=== PATIENT | male | born 1935 | race American Indian/Alaskan Native ===

== ENCOUNTER 2017-03-09 17:08 | Observation (INO) | payer OTHER ==
[2017-03-09] MEDS ORDERED: Sodium Chloride 0.9% 10 ML Syringe FLUSH PRN ×2 (17:39→19:51)
[2017-03-09 18:02] LABS: CHLORIDE,CL 98 mmol/L (101-111); SODIUM,NA 133 mmol/L (135-145)
[2017-03-09] MEDS ORDERED: Albuterol 6.7 GM Inhaler INH PRN (19:47)
[2017-03-09] MEDS ORDERED: Ondansetron 4 MG Tab.DIS PO PRN (19:51)
[2017-03-09] MEDS ORDERED: Acetaminophen 325 MG Tab PO PRN (19:51)
--- NOTE | 2017-03-09 20:01 | PCM.HP ---
H&P History of Present Illness - General Date of Service: 03/09/17 Admit Problem/Dx: Admission Diagnosis/Problem Admission Diagnosis/Problem Confusion Source of Information: Patient, Other () - History of Present Illness Initial Comments - Free Text/Narative: The patient is a 81-year-old gentleman who has a history of atrial fibrillation , bovine aortic valve replacement, diabetes. He says he has had an episode of confusion this morning when he did not know what day it is, where to go with his son. He says that he had similar episodes in the past. He had no motor or sensory deficit. While talking with the the did not notice any abnormality, no slurred speech. Subsequently the patient went to work, he is a professor at the [employer]. No significant abnormalities during the day. He even ran two miles as his regular exercise regimen. Subsequently he called his primary care provider and was suggested to come to the emergency room. He arrived about 12 hours after the initial event. He is feeling well. He noted that he had a large lunch with sweets. His blood sugar was elevated. He normally runs around 160 the morning. - Related Data Allergies/Adverse Reactions: Allergies Allergy/AdvReac Type Severity Reaction Status Date / Time No Known Allergies Allergy Verified 03/09/17 17:44 Home Medications: Home Meds Aspirin [Nan Chewable] 81 mg PO DAILY 02/27/14 [History] Calcium Citrate/Vitamin D3 [Calcium Citrate + D] 1 tab PO BID 02/27/14 [History] Simvastatin [Zocor] 20 mg PO DAILY 02/27/14 [History] metFORMIN [Glucophage] 1,000 mg PO BIDM 02/27/14 [History] Docusate Sodium [Colace] 100 mg PO BID PRN 09/22/15 [History] Warfarin [Coumadin] 3 mg PO DAILY 09/22/15 [History] Albuterol [Proair HFA] 12 puff INH Q4H PRN 03/09/17 [History] Cetirizine [ZyrTEC] 10 mg PO DAILY 03/09/17 [History] Cyanocobalamin (Vitamin B-12) [B-12] 100 mcg PO DAILY 03/09/17 [History] Ferrous Sulfate 324 mg PO TID 03/09/17 [History] Hydrochlorothiazide 25 mg PO DAILY 03/09/17 [History] Hydrophilic Cream [Basle] 1 applic TP DAILY PRN 03/09/17 [History] Insulin Glarg,Human.Rec.Analog [Lantus] 23 unit SQ DAILY 03/09/17 [History] Losartan [Cozaar] 25 mg PO DAILY 03/09/17 [History] Saxagliptin [Onglyza] 5 mg PO DAILY 03/09/17 [History] Triamcinolone Acetonide 2 spray INH BID 03/09/17 [History] Past Medical History HEENT History: Reports: Impaired Vision Cardiovascular History: Reports: Afib, High Cholesterol, Hypertension Respiratory History: Reports: None Gastrointestinal History: Reports: None Genitourinary History: Reports: None Musculoskeletal History: Reports: None Neurological History: Reports: None Psychiatric History: Reports: None Endocrine/Metabolic History: Reports: Diabetes, Type II Hematologic History: Reports: Anemia, B12 Deficiency Immunologic History: Reports: None Oncologic (Cancer) History: Reports: None Dermatologic History: Reports: None - Infectious Disease History Infectious Disease History: Reports: None - Past Surgical History Head Surgeries/Procedures: Reports: None Other Cardiovascular Surgeries/Procedures: open heart surgery (aortic valve replacement in july 13, 2015) GI Surgical History: Reports: Appendectomy Social & Family History - Family History Family Medical History: Noncontributory - Tobacco Use Smoking Status *Q: Never Smoker Used Tobacco, but Quit: Yes Month Tobacco Last Used: 02/1984 Second Hand Smoke Exposure: No - Caffeine Use Caffeine Use: Reports: Coffee, Soda, Tea - Alcohol Use Days Per Week of Alcohol Use: 0 - Recreational Drug Use Recreational Drug Use: No Drug Use in Last 12 Months: No H&P Review of Systems - Review of Systems: Review Of Systems: See Below General: Denies: Fever, Chills Pulmonary: Denies: Shortness of Breath Cardiovascular: Denies: Chest Pain Gastrointestinal: Denies: Abdominal Pain Genitourinary: Denies: Dysuria Psychiatric: Reports: Confusion. Denies: Hallucinations Neurological: Reports: Confusion. Denies: Dizziness, Headache, Numbness, Seizure, Syncope, Tingling, Tremors, Trouble Speaking, Difficulty Walking, Weakness, Change in Speech, Gait Disturbance Exam - Exam Exam: See Below - Vital Signs Vital Signs: Last Vital Signs Temp 36.5 C 03/09/17 18:39 Pulse 73 03/09/17 18:39 Resp 14 03/09/17 18:39 BP 134/71 03/09/17 18:39 Pulse Ox 97 03/09/17 18:39 Weight: 77.111 kg - Exam General: Alert, Oriented Neck: Supple Lungs: Clear to Auscultation, Normal Respiratory Effort Cardiovascular: Regular Rate, Regular Rhythm GI/Abdominal Exam: Normal Bowel Sounds, Soft, Non-Tender Extremities: No Pedal Edema Skin: Warm, Dry Neurological: Cranial Nerves Intact, Strength Equal Bilateral, Normal Gait, Normal Speech. No: Abnormal Gait Neuro Extensive - Mental Status: Alert, Oriented x3 Psychiatric: Alert, Normal Affect, Normal Mood - Patient Data Result Diagrams: 03/09/17 17:32 03/09/17 17:32 Yosef Results Last 24 hrs: EKG per my reading shows sinus rhythm. CT of the head shows no acute changes. *Q Meaningful Use (ADM) - VTE *Q VTE Criteria *Q: - Stroke *Q Stroke Criteria *Q: - AMI *Q AMI Criteria *Q: - Problem List (1) Acute encephalopathy SNOMED Code(s): 2322654 ICD Code: G93.40 - ENCEPHALOPATHY, UNSPECIFIED Status: Acute Current Visit: Yes (2) Hyperglycemia due to type 2 diabetes mellitus SNOMED Code(s): 504843248435063 ICD Code: E11.65 - TYPE 2 DIABETES MELLITUS WITH HYPERGLYCEMIA Status: Acute Current Visit: Yes Problem List Initiated/Reviewed/Updated: Yes Orders Last 24hrs: Active Orders 24 hr Category Date Time Status Patient Status [ADT] Routine ADT 03/09/17 19:51 Ordered Antiembolic Devices [RC] PER UNIT ROUTINE Care 03/09/17 19:53 Ordered Oxygen Therapy [RC] PRN Care 03/09/17 19:51 Ordered Up With Assistance [RC] ASDIRECTED Care 03/09/17 19:51 Ordered VTE/DVT Education [RC] PER UNIT ROUTINE Care 03/09/17 19:51 Ordered Vital Signs [RC] Q4H Care 03/09/17 19:51 Ordered Regular Diet [DIET] Diet 03/09/17 Breakfast Ordered BASIC METABOLIC PANEL,BMP [CHEM] AM Lab 03/10/17 05:15 Ordered CBC WITH AUTO DIFF [HEME] AM Lab 03/10/17 05:15 Ordered INR,PT,PROTHROMBIN TIME [COAG] AM Lab 03/10/17 05:15 Ordered MAGNESIUM [CHEM] AM Lab 03/10/17 05:11 Ordered PHOSPHORUS [CHEM] AM Lab 03/10/17 05:11 Ordered Acetaminophen [Tylenol] Med 03/09/17 19:51 Ordered 650 mg PO Q4H PRN Albuterol [Proventil HFA] Med 03/09/17 19:47 Ordered 12 puff INH Q4H PRN Aspirin Med 03/10/17 09:00 Ordered 81 mg PO DAILY Ferrous Sulfate [Ferrous Sulfate] Med 03/09/17 21:00 Ordered 324 mg PO TID Hydrochlorothiazide Med 03/10/17 09:00 Ordered 25 mg PO DAILY Insulin Glarg,Human.Rec.Analog Med 03/09/17 21:00 Ordered 23 unit SQ BEDTIME Losartan [Cozaar] Med 03/10/17 09:00 Ordered 25 mg PO DAILY Ondansetron [Zofran ODT] Med 03/09/17 19:51 Ordered 4 mg PO Q6H PRN Simvastatin [Zocor] Med 03/10/17 09:00 Ordered 20 mg PO DAILY Sodium Chloride 0.9% [Saline Flush] Med 03/09/17 19:51 Ordered 10 ml FLUSH ASDIRECTED PRN Warfarin Med 03/10/17 09:00 Ordered 3 mg PO DAILY Antiembolic Hose [OM.PC] Per Unit Routine Oth 03/09/17 19:53 Ordered Saline Lock Insert [OM.PC] Routine Oth 03/09/17 19:51 Ordered Resuscitation Status Routine Resus Stat 03/09/17 19:51 Ordered Medication Orders Acetaminophen (Tylenol) 650 mg PO Q4H PRN PRN Reason: Pain (Mild 1-3)/fever Albuterol (Proventil Hfa) gm INH Q4H PRN PRN Reason: sob Aspirin (Aspirin) 81 mg PO DAILY [facility] Hydrochlorothiazide (Hydrochlorothiazide) 25 mg PO DAILY [facility] Losartan Potassium (Cozaar) 25 mg PO DAILY [facility] Non-Formulary Medication (Insulin Glarg,Human.Rec.Analog) 23 unit SQ BEDTIME [facility] Non-Formulary Medication (Simvastatin [Zocor]) 20 mg PO DAILY [facility] Non-Formulary Medication (Warfarin) 3 mg PO DAILY [facility] Non-Formulary Medication (Ferrous Sulfate [Ferrous Sulfate]) 324 mg PO TID [facility] Ondansetron HCl (Zofran Odt) 4 mg PO Q6H PRN PRN Reason: nausea, able to take PO Sodium Chloride (Saline Flush) 10 ml FLUSH ASDIRECTED PRN PRN Reason: Keep Vein Open Sodium Chloride (Saline Flush) 10 ml FLUSH ASDIRECTED PRN PRN Reason: Keep Vein Open Assessment/Plan Comment:: The patient is a 81-year-old gentleman who is in quite good health. He has a history of atrial fibrillation, bovine aortic valve replacement. #1 transient acute encephalopathy No neurological sensory or motor deficit associated with this The differential diagnosis is wide. This might represent developing dementia. Possible metabolic effects of hyperglycemia. He is anticoagulated with Coumadin for atrial fibrillation, also taking aspirin. We'll monitor the patient's neurological status. #2 diabetes Appears uncontrolled It will be very difficult to adjust diabetic medications based on hospital blood sugars since I'm planning to hold the metformin for possible urgent CTs Will follow blood sugars and use supplemental insulin as needed He will need a blood sugar diary at home and adjust based on that order. #3 hypertension Treat with hydrochlorothiazide, losartan Monitor blood pressure and adjust as needed #4 history of atrial fibrillation Continue Coumadin #5 dyslipidemia Treat with Lipitor
[2017-03-09] MEDS ORDERED: Insulin Detemir 100 Units/ML 3 ML Pen SUBCUT SCH (21:00)
[2017-03-09] MEDS: Ferrous Sulfate 325 MG Tab PO SCH (21:41)
[2017-03-10 06:56] LABS: CHLORIDE,CL 102 mmol/L (101-111); SODIUM,NA 137 mmol/L (135-145)
[2017-03-10] MEDS ORDERED: Losartan 25 MG Tab PO SCH (09:00)
[2017-03-10] MEDS ORDERED: Hydrochlorothiazide 25 MG Tab PO SCH (09:00)
[2017-03-10] MEDS ORDERED: Simvastatin 10 MG Tab PO SCH (09:00)
[2017-03-10] MEDS ORDERED: Aspirin 81 MG Tab.Chew PO SCH (09:00)
[2017-03-10 09:46] VITALS: BP 128/64
[2017-03-10] MEDS: Ferrous Sulfate 325 MG Tab PO SCH (09:51)
--- NOTE | 2017-03-10 10:24 | PCM.DCSUM1 ---
Discharge Summary - Hospital Course Free Text/Narrative:: The patient is a 81-year-old gentleman who is in quite good health. He has a history of atrial fibrillation, bovine aortic valve replacement. he presented with an episode of transient confusion that last ed less than an hour, was not associated with other neurological symptoms. #1 transient acute encephalopathy No neurological sensory or motor deficit associated with this The differential diagnosis is wide. This might represent developing dementia. Possible metabolic effects of hyperglycemia. He is anticoagulated with Coumadin for atrial fibrillation, also taking aspirin. had no recurrence in the past 24 h. follow up with PMD #2 diabetes He will need a blood sugar diary at home and adjust based on that order. follow up with PMD #3 hypertension Treat with hydrochlorothiazide, losartan #4 history of atrial fibrillation INR was subtherapeutic at 1.7 Continue Coumadin at increased dose of 4 mg daily #5 dyslipidemia Treat with Lipitor - Discharge Data Discharge Date: 03/10/17 Discharge Disposition: Home, Self-Care 01 Condition: Fair - Discharge Diagnosis/Problem(s) (1) Acute encephalopathy SNOMED Code(s): 2796575 ICD Code: G93.40 - ENCEPHALOPATHY, UNSPECIFIED Status: Acute Current Visit: Yes (2) Hyperglycemia due to type 2 diabetes mellitus SNOMED Code(s): 072272854858408 ICD Code: E11.65 - TYPE 2 DIABETES MELLITUS WITH HYPERGLYCEMIA Status: Acute Current Visit: Yes - Patient Instructions Diet: Usual Diet as Tolerated Activity: As Tolerated - Discharge Plan Prescriptions/Med Rec: Warfarin Sodium [Coumadin] 4 mg PO DAILY #30 tablet Home Medications: Home Meds Aspirin [Nan Chewable Aspirin] 81 mg PO DAILY 02/27/14 [History] Calcium Citrate/Vitamin D3 [Calcium Citrate + D] 1 tab PO BID 02/27/14 [History] Simvastatin [Zocor] 20 mg PO DAILY 02/27/14 [History] metFORMIN [Glucophage] 1,000 mg PO BIDM 02/27/14 [History] Docusate Sodium [Colace] 100 mg PO BID PRN 09/22/15 [History] Albuterol [Proair HFA] 12 puff INH Q4H PRN 03/09/17 [History] Cetirizine [ZyrTEC] 10 mg PO DAILY 03/09/17 [History] Cyanocobalamin (Vitamin B-12) [B-12] 100 mcg PO DAILY 03/09/17 [History] Ferrous Sulfate 324 mg PO TID 03/09/17 [History] Hydrochlorothiazide 25 mg PO DAILY 03/09/17 [History] Hydrophilic Cream [Basle] 1 applic TP BID PRN 03/09/17 [History] Insulin Glarg,Human.Rec.Analog [Lantus] 23 unit SQ BEDTIME 03/09/17 [History] Losartan [Cozaar] 25 mg PO DAILY 03/09/17 [History] Saxagliptin [Onglyza] 5 mg PO DAILY 03/09/17 [History] Triamcinolone Acetonide 2 spray INH DAILY 03/09/17 [History] Warfarin Sodium [Coumadin] 4 mg PO DAILY #30 tablet 03/10/17 [Rx] Referrals: PCP,None [Primary Care Provider] - (dr. Pepe) - General Info Date of Service: 03/10/17 - Review of Systems General: Denies: Fever, Weakness, Malaise Pulmonary: Denies: Shortness of Breath Cardiovascular: Denies: Chest Pain Gastrointestinal: Denies: Abdominal Pain - Patient Data Vitals - Most Recent: Last Vital Signs Temp 37.0 C 03/10/17 07:00 Pulse 57 L 03/10/17 07:00 Resp 20 03/10/17 07:00 BP 128/64 03/10/17 07:00 Pulse Ox 93 L 03/10/17 07:00 Weight - Most Recent: 77.111 kg I&O - Last 24 hours: Intake & Output 03/09/17 03/10/17 03/10/17 22:59 06:59 14:59 Intake Total 340 300 Balance 340 300 Lab Results - Last 24 hrs: Laboratory Results - last 24 hr 03/09/17 03/10/17 03/10/17 Range/Units 20:08 06:03 06:03 WBC 7.5 (5.0-10.0) 10^3/uL RBC 5.12 (4.6-6.2) 10^6/uL Hgb 13.2 L (14.0-18.0) g/dL Hct 40.4 (40.0-54.0) % MCV 78.9 L (80-100) fL MCH 25.8 L (27.0-34.0) pg MCHC 32.7 L (33.0-35.0) g/dL Plt Count 92 L (150-450) 10^3/uL Neut % (Auto) 65.3 (42.2-75.2) % Lymph % (Auto) 24.8 (20.5-50.1) % [place] % (Auto) 8.1 H (2-8) % Eos % (Auto) 1.7 (1.0-3.0) % Baso % (Auto) 0.1 (0.0-1.0) % PT (9.0-12.0) SEC INR (0.9-1.2) Sodium 137 (135-145) mmol/L Potassium 3.6 (3.6-5.0) mmol/L Chloride 102 (101-111) mmol/L Carbon Dioxide 26.0 (21.0-31.0) mmol/L Anion Gap 12.6 BUN 14 (7-18) mg/dL Creatinine 0.8 (0.6-1.3) mg/dL Est Cr Clr Drug Dosing 68.78 mL/min Estimated GFR (MDRD) > 60 Glucose 194 H (74-105) mg/dL POC Glucose 224 H (83-110) mg/dl Calcium 8.8 (8.4-10.2) mg/dl Phosphorus 3.4 (2.5-4.6) mg/dL Magnesium 1.8 (1.8-2.5) mg/dL 03/10/17 03/10/17 Range/Units 06:03 07:45 WBC (5.0-10.0) 10^3/uL RBC (4.6-6.2) 10^6/uL Hgb (14.0-18.0) g/dL Hct (40.0-54.0) % MCV (80-100) fL MCH (27.0-34.0) pg MCHC (33.0-35.0) g/dL Plt Count (150-450) 10^3/uL Neut % (Auto) (42.2-75.2) % Lymph % (Auto) (20.5-50.1) % [place] % (Auto) (2-8) % Eos % (Auto) (1.0-3.0) % Baso % (Auto) (0.0-1.0) % PT 17.5 H (9.0-12.0) SEC INR 1.7 H (0.9-1.2) Sodium (135-145) mmol/L Potassium (3.6-5.0) mmol/L Chloride (101-111) mmol/L Carbon Dioxide (21.0-31.0) mmol/L Anion Gap BUN (7-18) mg/dL Creatinine (0.6-1.3) mg/dL Est Cr Clr Drug Dosing mL/min Estimated GFR (MDRD) Glucose (74-105) mg/dL POC Glucose 163 H (83-110) mg/dl Calcium (8.4-10.2) mg/dl Phosphorus (2.5-4.6) mg/dL Magnesium (1.8-2.5) mg/dL Med Orders - Current: Current Medications Acetaminophen (Tylenol) 650 mg PO Q4H PRN PRN Reason: Pain (Mild 1-3)/fever Albuterol (Proventil Hfa) 0 gm INH Q4H PRN PRN Reason: sob Aspirin (Aspirin) 81 mg PO DAILY [facility] Last Admin: 03/10/17 09:52 Dose: 81 mg Ferrous Sulfate (Ferrous Sulfate) 325 mg PO TID [facility] Last Admin: 03/10/17 09:51 Dose: 325 mg Hydrochlorothiazide (Hydrochlorothiazide) 25 mg PO DAILY [facility] Last Admin: 03/10/17 09:52 Dose: 25 mg Insulin Detemir (Levemir) 23 unit SUBCUT BEDTIME [facility] Last Admin: 03/09/17 21:39 Dose: 23 units Losartan Potassium (Cozaar) 25 mg PO DAILY [facility] Ondansetron HCl (Zofran Odt) 4 mg PO Q6H PRN PRN Reason: nausea, able to take PO Simvastatin (Zocor) 20 mg PO DAILY [facility] Last Admin: 03/10/17 09:51 Dose: 20 mg Sodium Chloride (Saline Flush) 10 ml FLUSH ASDIRECTED PRN PRN Reason: Keep Vein Open Sodium Chloride (Saline Flush) 10 ml FLUSH ASDIRECTED PRN PRN Reason: Keep Vein Open Warfarin Sodium (Coumadin) 3 mg PO DAILY@1400 [facility] Last Admin: 03/09/17 21:41 Dose: 3 mg - Exam General: Reports: Alert, Oriented, Cooperative, No Acute Distress Neck: Reports: Supple Lungs: Reports: Clear to Auscultation, Normal Respiratory Effort Cardiovascular: Reports: Regular Rate, Regular Rhythm GI/Abdominal Exam: Normal Bowel Sounds, Soft, Non-Tender Extremities: No Pedal Edema Skin: Reports: Warm, Dry Neurological: Reports: No New Focal Deficit, Normal Gait, Normal Speech Psy/Mental Status: Reports: Alert, Normal Affect, Normal Mood *Q Meaningful Use (DIS) - VTE *Q VTE Criteria *Q: - Stroke *Q Stroke Criteria *Q: - AMI *Q AMI Criteria *Q:
--- NOTE | 2017-03-10 17:18 | EDM.PDOC ---
Scribed by Enid Evans 03/09/17 1933 for Manoj Shields MD ED HPI GENERAL MEDICAL PROBLEM - General Chief Complaint: Neurological Problem Stated Complaint: HEAD DOESNT FEEL GOOD, [id number] Time Seen by Provider: 03/09/17 17:39 Source of Information: Reports: Patient, RN, RN Notes Reviewed History Limitations: Reports: No Limitations - History of Present Illness INITIAL COMMENTS - FREE TEXT/NARRATIVE: Patient arrives from home by POV with complaint of sudden onset of confusion shortly after waking at 0530 hours this morning. Patient felt that he was " foggy in the head and had difficulty getting the right words to come out". His noticed as well and confirms that accuracy of patient's history. Despite the neuro symptoms, he drove his son into town and dropped him off at work. Patient states he had to "really concentrate" to drive safely and find his way home. At approximately 0830 hours the symptoms all went away and did not return. Patient denies headache, nausea, vomiting, chest pain, palpitations, dizziness, motor/sensory deficits, visual changes or swallowing difficulties. Onset: Today Duration: Resolved Prior to Arrival Location: Reports: Generalized Severity: Severe Improves with: Reports: None Worsens with: Reports: None Associated Symptoms: Reports: No Other Symptoms - Related Data Allergies Allergy/AdvReac Type Severity Reaction Status Date / Time No Known Allergies Allergy Verified 03/09/17 20:32 Home Meds: Home Meds Aspirin [Nan Chewable Aspirin] 81 mg PO DAILY 02/27/14 [History] Calcium Citrate/Vitamin D3 [Calcium Citrate + D] 1 tab PO BID 02/27/14 [History] Simvastatin [Zocor] 20 mg PO DAILY 02/27/14 [History] metFORMIN [Glucophage] 1,000 mg PO BIDM 02/27/14 [History] Docusate Sodium [Colace] 100 mg PO BID PRN 09/22/15 [History] Albuterol [Proair HFA] 12 puff INH Q4H PRN 03/09/17 [History] Cetirizine [ZyrTEC] 10 mg PO DAILY 03/09/17 [History] Cyanocobalamin (Vitamin B-12) [B-12] 100 mcg PO DAILY 03/09/17 [History] Ferrous Sulfate 324 mg PO TID 03/09/17 [History] Hydrochlorothiazide 25 mg PO DAILY 03/09/17 [History] Hydrophilic Cream [Basle] 1 applic TP BID PRN 03/09/17 [History] Insulin Glarg,Human.Rec.Analog [Lantus] 23 unit SQ BEDTIME 03/09/17 [History] Losartan [Cozaar] 25 mg PO DAILY 03/09/17 [History] Saxagliptin [Onglyza] 5 mg PO DAILY 03/09/17 [History] Triamcinolone Acetonide 2 spray INH DAILY 03/09/17 [History] Warfarin Sodium [Coumadin] 4 mg PO DAILY #30 tablet 03/10/17 [Rx] Past Medical History HEENT History: Reports: Impaired Vision Cardiovascular History: Reports: Afib, High Cholesterol, Hypertension Respiratory History: Reports: None Gastrointestinal History: Reports: None Genitourinary History: Reports: None Musculoskeletal History: Reports: None Neurological History: Reports: None Psychiatric History: Reports: None Endocrine/Metabolic History: Reports: Diabetes, Type II (insulin dependent) Hematologic History: Reports: Anemia, B12 Deficiency, Other (See Below) ( anticoagulated) Immunologic History: Reports: None Oncologic (Cancer) History: Reports: None Dermatologic History: Reports: None - Infectious Disease History Infectious Disease History: Reports: None - Past Surgical History Head Surgeries/Procedures: Reports: None Cardiovascular Surgical History: Reports: Other (See Below) (mechanical aortic valve) Other Cardiovascular Surgeries/Procedures: open heart surgery (aortic valve replacement in july 13, 2015) GI Surgical History: Reports: Appendectomy Social & Family History - Family History Family Medical History: Noncontributory - Tobacco Use Smoking Status *Q: Never Smoker Used Tobacco, but Quit: Yes Month Tobacco Last Used: 02/1984 Second Hand Smoke Exposure: No - Caffeine Use Caffeine Use: Reports: Coffee, Soda, Tea - Alcohol Use Days Per Week of Alcohol Use: 0 - Recreational Drug Use Recreational Drug Use: No Drug Use in Last 12 Months: No - Living Situation & Occupation Living situation: Reports: , with Spouse Occupation: Retired ED ROS GENERAL - Review of Systems Review Of Systems: ROS reveals no pertinent complaints other than HPI. ED EXAM, NEURO - Physical Exam Exam: See Below Exam Limited By: No Limitations General Appearance: Alert, WD/WN, No Apparent Distress Eye Exam: Bilateral Eye: EOMI, Normal Inspection, PERRL Ears: Normal External Exam, Hearing Grossly Normal Nose: Normal Inspection, Normal Mucosa, No Blood Throat/Mouth: Normal Inspection, Normal Lips, Normal Teeth, Normal Gums, Normal Oropharynx, Normal Voice, No Airway Compromise Head Exam: Atraumatic, Normocephalic Neck: Normal Inspection, Supple, Non-Tender, Full Range of Motion Respiratory/Chest: No Respiratory Distress, Lungs Clear, Normal Breath Sounds, No Accessory Muscle Use, Chest Non-Tender Cardiovascular: Normal Peripheral Pulses, Regular Rate, Rhythm, No Edema, No Gallop, No JVD, No Murmur, No Rub GI/Abdominal: Normal Bowel Sounds, Soft, Non-Tender, No Distention, No Abnormal Bruit (Male) Exam: Deferred Rectal (Males) Exam: Deferred Neurological: Alert, Normal Mood/Affect, Normal Dorsiflexion, CN II-XII Intact, Normal Plantar Flexion, Normal Gait, Normal Reflexes, No Motor/Sensory Deficits , Oriented x 3 Back Exam: Normal Inspection Extremities: Normal Inspection, Normal Range of Motion, Non-Tender, No Pedal Edema, Normal Capillary Refill Psychiatric: Normal Affect, Normal Mood Skin Exam: Warm, Dry, Intact, Normal Color, No Rash EKG INTERPRETATION EKG Date: 03/09/17 Time: 17:29 Rhythm: Other (sinus rhythm) Rate (Beats/Min): 81 [place]: Normal P-Wave: Absent (first degree av block) QRS: RBBB (and LPFB) ST-T: Normal QT: Normal Comparison: NA - No Prior EKG Course - Vital Signs Last Recorded V/S: Last Vital Signs Temp 37.0 C 03/10/17 07:00 Pulse 57 L 03/10/17 07:00 Resp 20 03/10/17 07:00 BP 128/64 03/10/17 09:45 Pulse Ox 93 L 03/10/17 07:00 - Orders/Labs/Meds Orders: Active Orders 24 hr Category Date Time Status EKG 12 Lead [EKG Documentation Completion] [RC] STAT Care 03/09/17 17:39 Active Peripheral IV Care [RC] 08,20 Care 03/09/17 17:40 Active Peripheral IV Insertion Adult [OM.PC] Stat Oth 03/09/17 17:39 Ordered Labs: Laboratory Tests 03/09/17 03/09/17 03/09/17 Range/Units 17:32 17:32 17:32 WBC 7.0 (5.0-10.0) 10^3/uL RBC 5.33 (4.6-6.2) 10^6/uL Hgb 13.8 L (14.0-18.0) g/dL Hct 41.5 (40.0-54.0) % MCV 77.9 L (80-100) fL MCH 25.9 L (27.0-34.0) pg MCHC 33.3 (33.0-35.0) g/dL Plt Count 88 L (150-450) 10^3/uL Neut % (Auto) 64.4 (42.2-75.2) % Lymph % (Auto) 26.0 (20.5-50.1) % [place] % (Auto) 8.2 H (2-8) % Eos % (Auto) 1.1 (1.0-3.0) % Baso % (Auto) 0.3 (0.0-1.0) % PT 18.4 H (9.0-12.0) SEC INR 1.8 H (0.9-1.2) APTT 29.9 (22.0-34.0) SEC Sodium 133 L (135-145) mmol/L Potassium 3.8 (3.6-5.0) mmol/L Chloride 98 L (101-111) mmol/L Carbon Dioxide 25.0 (21.0-31.0) mmol/L Anion Gap 13.8 BUN 17 (7-18) mg/dL Creatinine 1.0 (0.6-1.3) mg/dL Est Cr Clr Drug Dosing 54.05 mL/min Estimated GFR (MDRD) > 60 BUN/Creatinine Ratio 17.00 Glucose 386 H (74-105) mg/dL Calcium 9.1 (8.4-10.2) mg/dl Total Bilirubin 0.3 (0.2-1.0) mg/dL AST 31 (10-42) IU/L ALT 19 (10-60) IU/L Alkaline Phosphatase 73 (42-121) IU/L Troponin I < 0.02 (0.00-0.02) ng/ml Total Protein 7.1 (6.7-8.2) g/dl Albumin 4.3 (3.2-5.5) g/dl Globulin 2.8 Albumin/Globulin Ratio 1.54 Urine Color (YELLOW) Urine Appearance (CLEAR) Urine pH (5.0-9.0) Ur Specific Lam[place] (1.005-1.030) Urine Protein (NEGATIVE) Urine Glucose (UA) (NEGATIVE) Urine Ketones (NEGATIVE) Urine Occult Blood (NEGATIVE) Urine Nitrite (NEGATIVE) Urine Bilirubin (NEGATIVE) Urine Urobilinogen (0.2-1.0) mg/dL Ur Leukocyte Esterase (NEGATIVE) Urine RBC /HPF Urine WBC (0-5/HPF) /HPF Ur Epithelial Cells /HPF Urine Bacteria (0-FEW/HPF) /HPF Urine Opiates Screen (NEGATIVE) Ur Oxycodone Screen (NEGATIVE) Urine Methadone Screen (NEGATIVE) Ur Barbiturates Screen (NEGATIVE) U Tricyclic Antidepress (NEGATIVE) Ur Phencyclidine Scrn (NEGATIVE) Ur Amphetamine Screen (NEGATIVE) U Methamphetamines Scrn (NEGATIVE) Urine MDMA Screen (NEGATIVE) U Benzodiazepines Scrn (NEGATIVE) Urine Cocaine Screen (NEGATIVE) U Marijuana (THC) Screen (NEGATIVE) Ethyl Alcohol < 5 mg/dL 03/09/17 03/09/17 Range/Units 18:15 18:15 WBC (5.0-10.0) 10^3/uL RBC (4.6-6.2) 10^6/uL Hgb (14.0-18.0) g/dL Hct (40.0-54.0) % MCV (80-100) fL MCH (27.0-34.0) pg MCHC (33.0-35.0) g/dL Plt Count (150-450) 10^3/uL Neut % (Auto) (42.2-75.2) % Lymph % (Auto) (20.5-50.1) % [place] % (Auto) (2-8) % Eos % (Auto) (1.0-3.0) % Baso % (Auto) (0.0-1.0) % PT (9.0-12.0) SEC INR (0.9-1.2) APTT (22.0-34.0) SEC Sodium (135-145) mmol/L Potassium (3.6-5.0) mmol/L Chloride (101-111) mmol/L Carbon Dioxide (21.0-31.0) mmol/L Anion Gap BUN (7-18) mg/dL Creatinine (0.6-1.3) mg/dL Est Cr Clr Drug Dosing mL/min Estimated GFR (MDRD) BUN/Creatinine Ratio Glucose (74-105) mg/dL Calcium (8.4-10.2) mg/dl Total Bilirubin (0.2-1.0) mg/dL AST (10-42) IU/L ALT (10-60) IU/L Alkaline Phosphatase (42-121) IU/L Troponin I (0.00-0.02) ng/ml Total Protein (6.7-8.2) g/dl Albumin (3.2-5.5) g/dl Globulin Albumin/Globulin Ratio Urine Color Yellow (YELLOW) Urine Appearance Clear (CLEAR) Urine pH 5.5 (5.0-9.0) Ur Specific [place] 1.015 (1.005-1.030) Urine Protein Negative (NEGATIVE) Urine Glucose (UA) 500 H (NEGATIVE) Urine Ketones Negative (NEGATIVE) Urine Occult Blood Trace-intact H (NEGATIVE) Urine Nitrite Negative (NEGATIVE) Urine Bilirubin Negative (NEGATIVE) Urine Urobilinogen 0.2 (0.2-1.0) mg/dL Ur Leukocyte Esterase Negative (NEGATIVE) Urine RBC 0-5 /HPF Urine WBC 0-5 (0-5/HPF) /HPF Ur Epithelial Cells Few /HPF Urine Bacteria Few (0-FEW/HPF) /HPF Urine Opiates Screen Negative (NEGATIVE) Ur Oxycodone Screen Negative (NEGATIVE) Urine Methadone Screen Negative (NEGATIVE) Ur Barbiturates Screen Negative (NEGATIVE) U Tricyclic Antidepress Negative (NEGATIVE) Ur Phencyclidine Scrn Negative (NEGATIVE) Ur Amphetamine Screen Negative (NEGATIVE) U Methamphetamines Scrn Negative (NEGATIVE) Urine MDMA Screen Negative (NEGATIVE) U Benzodiazepines Scrn Negative (NEGATIVE) Urine Cocaine Screen Negative (NEGATIVE) U Marijuana (THC) Screen Negative (NEGATIVE) Ethyl Alcohol mg/dL Meds: Medications Discontinued Medications Generic Name Dose Route Start Last Admin Trade Name Freq PRN Reason Stop Dose Admin Acetaminophen 650 mg 03/09/17 19:51 Tylenol PO Q4H PRN Pain (Mild 1-3)/fever Albuterol 0 gm 03/09/17 19:47 Proventil Hfa INH Q4H PRN sob Aspirin 81 mg 03/10/17 09:00 03/10/17 09:52 Aspirin PO 81 mg DAILY HENRI Administration Ferrous Sulfate 325 mg 03/09/17 21:00 03/10/17 09:51 Ferrous Sulfate PO 325 mg TID HENRI Administration Hydrochlorothiazide 25 mg 03/10/17 09:00 03/10/17 09:52 Hydrochlorothiazide PO 25 mg DAILY HENRI Administration Insulin Detemir 23 unit 03/09/17 21:00 03/09/17 21:39 Levemir SUBCUT 23 units BEDTIME HENRI Administration Losartan Potassium 25 mg 03/10/17 09:00 03/10/17 09:45 Cozaar PO 25 mg DAILY HENRI Administration Ondansetron HCl 4 mg 03/09/17 19:51 Zofran Odt PO Q6H PRN nausea, able to take PO Simvastatin 20 mg 03/10/17 09:00 03/10/17 09:51 Zocor PO 20 mg DAILY HENRI Administration Sodium Chloride 10 ml 03/09/17 17:39 Saline Flush FLUSH ASDIRECTED PRN Keep Vein Open Sodium Chloride 10 ml 03/09/17 19:51 Saline Flush FLUSH ASDIRECTED PRN Keep Vein Open Warfarin Sodium 3 mg 03/09/17 21:00 03/09/17 21:41 Coumadin PO 3 mg DAILY@1400 HENRI Administration - Radiology Interpretation Free Text/Narrative:: Head CT: Senescent changes noted.No acute intracranial abnormality. See Rad report. Departure - Departure Time of Disposition: 19:14 (Admit to Dr. Batista) Disposition: Refer to Observation Condition: Fair Clinical Impression: TIA (transient ischemic attack) Qualifiers: Transient cerebral ischemia type: unspecified Qualified Code(s): G45.9 - Transient cerebral ischemic attack, unspecified Hyperglycemia due to type 2 diabetes mellitus Qualifiers: Diabetes mellitus medical terminologist insulin use: with group home use Qualified Code(s): E11.65 - Type 2 diabetes mellitus with hyperglycemia; Z79.4 - manager terminal (current ) use of insulin; Z79.4 - manager terminal (current) use of insulin; Z79.4 - manager terminal (current) use of insulin; Z79.4 - [facility] (current) use of insulin - Discharge Information - My Orders Last 24 Hours: My Active Orders 03/09/17 17:39 EKG 12 Lead [EKG Documentation Completion] [RC] STAT Peripheral IV Insertion Adult [OM.PC] Stat 03/09/17 17:40 Peripheral IV Care [RC] 08,20 - Assessment/Plan Last 24 Hours: My Active Orders 03/09/17 17:39 EKG 12 Lead [EKG Documentation Completion] [RC] STAT Peripheral IV Insertion Adult [OM.PC] Stat 03/09/17 17:40 Peripheral IV Care [RC] 08,20 I have read and agree with the documentation that has been completed regarding this visit. By signing this record, I attest that the documentation was completed in my physical presence and is an accurate record of the encounter.
--- NOTE | 2017-03-14 11:02 | EKG ---
03/09/2017- LEDY CRAWFORD - EKG per my reading shows sinus rhythm with right bundle-branch block. [facility] /[id number]
== END 2017-03-10 11:00 | disposition home or self-care (01) ==
LOC: DL.ED 17:08 → DL.MS 19:37 → EEVIPCON 19:37
PROVIDERS: ADMIT Internal Medicine; ATTEND Internal Medicine
DX: G93.40 Encephalopathy, unspecified (principal); I48.91 Unspecified atrial fibrillation; I10 Essential (primary) hypertension; E78.5 Hyperlipidemia, unspecified; E11.65 Type 2 diabetes mellitus with hyperglycemia; Z79.82 Long term (current) use of aspirin; Z95.4 Presence of other heart-valve replacement; Z79.4 Long term (current) use of insulin; Z79.899 Other long term (current) drug therapy; Z90.49 Acquired absence of other specified parts of digestive tract; Z79.01 Long term (current) use of anticoagulants
CPT/HCPCS: 36415; 70450; 80048; 80053; 80305; 81001; 82962; 83735; 84100; 84484; 85025; 85610; 85730; 93005; 99284; A9270; G0480; J1815; G0378

== ENCOUNTER 2017-06-18 14:04 | Emergency (ER) | payer OTHER ==
[2017-06-18 14:18] VITALS: BP 148/67
--- NOTE | 2017-06-18 14:27 | EDM.PDOC ---
ED HPI GENERAL MEDICAL PROBLEM - General Stated Complaint: IN BY AMBULANCE Time Seen by Provider: 06/18/17 14:15 Source of Information: Reports: Patient, EMS History Limitations: Reports: No Limitations - History of Present Illness INITIAL COMMENTS - FREE TEXT/NARRATIVE: This 81 yo male patient was brought to the ED by [facility] due to an episode of confusion. 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 When he was teaching this afternoon, the patient reports that he could not remember what he was teaching. The patient stated that he "had to ask the students what he was teaching." The patient reports he remembers getting up this morning, taking his blood sugar (127), going to work, and having breakfast. The patient reports his memory "is coming back to normal" upon assessment. The patient was alert and oriented to person, place and time. The patient has a past medical history of a TIA (February 2017), A. fib, bovine aortic valve replacement, diabetes, and hypertension. Onset: Today Duration: Minutes:, Improving Location: Reports: Other Quality: Reports: Pressure Severity: Moderate Improves with: Reports: Other (time) Context: Reports: Other Associated Symptoms: Reports: Other - Related Data Allergies Allergy/AdvReac Type Severity Reaction Status Date / Time No Known Allergies Allergy Verified 06/18/17 14:21 Home Meds: Home Meds Aspirin [Nan Chewable Aspirin] 81 mg PO DAILY 02/27/14 [History] Calcium Citrate/Vitamin D3 [Calcium Citrate + D] 1 tab PO BID 02/27/14 [History] Simvastatin [Zocor] 20 mg PO DAILY 02/27/14 [History] metFORMIN [Glucophage] 1,000 mg PO BIDM 02/27/14 [History] Docusate Sodium [Colace] 100 mg PO BID PRN 09/22/15 [History] Albuterol [Proair HFA] 12 puff INH Q4H PRN 03/09/17 [History] Cetirizine [ZyrTEC] 10 mg PO DAILY 03/09/17 [History] Cyanocobalamin (Vitamin B-12) [B-12] 100 mcg PO DAILY 03/09/17 [History] Ferrous Sulfate 324 mg PO TID 03/09/17 [History] Hydrochlorothiazide 25 mg PO DAILY 03/09/17 [History] Hydrophilic Cream [Basle] 1 applic TP BID PRN 03/09/17 [History] Insulin Glarg,Human.Rec.Analog [Lantus] 23 unit SQ BEDTIME 03/09/17 [History] Losartan [Cozaar] 25 mg PO DAILY 03/09/17 [History] Saxagliptin [Onglyza] 5 mg PO DAILY 03/09/17 [History] Triamcinolone Acetonide 2 spray INH DAILY 03/09/17 [History] Warfarin Sodium [Coumadin] 4 mg PO DAILY #30 tablet 03/10/17 [Rx] Past Medical History HEENT History: Reports: Impaired Vision Cardiovascular History: Reports: Afib, High Cholesterol, Hypertension Respiratory History: Reports: None Gastrointestinal History: Reports: None Genitourinary History: Reports: None Musculoskeletal History: Reports: None Neurological History: Reports: None Psychiatric History: Reports: None Endocrine/Metabolic History: Reports: Diabetes, Type II (insulin dependent) Hematologic History: Reports: Anemia, B12 Deficiency, Other (See Below) ( anticoagulated) Immunologic History: Reports: None Oncologic (Cancer) History: Reports: None Dermatologic History: Reports: None - Infectious Disease History Infectious Disease History: Reports: None - Past Surgical History Head Surgeries/Procedures: Reports: None Cardiovascular Surgical History: Reports: Other (See Below) (mechanical aortic valve) Other Cardiovascular Surgeries/Procedures: open heart surgery (aortic valve replacement in july 13, 2015) GI Surgical History: Reports: Appendectomy Social & Family History - Family History Family Medical History: Noncontributory - Tobacco Use Smoking Status *Q: Never Smoker Used Tobacco, but Quit: Yes Month/Year Tobacco Last Used: 02/1984 Second Hand Smoke Exposure: No - Caffeine Use Caffeine Use: Reports: Coffee, Soda, Tea - Alcohol Use Days Per Week of Alcohol Use: 0 - Recreational Drug Use Recreational Drug Use: No Drug Use in Last 12 Months: No - Living Situation & Occupation Living situation: Reports: , with Spouse Occupation: Retired ED ROS GENERAL - Review of Systems Review Of Systems: ROS reveals no pertinent complaints other than HPI. - Physical Exam Exam: See Below Exam Limited By: No Limitations General Appearance: Alert, WD/WN, Mild Distress Eye Exam: Bilateral Eye: EOMI, Normal Inspection, PERRL Ears: Normal External Exam, Normal Canal, Hearing Grossly Normal, Normal TMs Nose: Normal Inspection, Normal Mucosa, No Blood Throat/Mouth: Normal Inspection, Normal Lips, Normal Teeth, Normal Gums, Normal Oropharynx, Normal Voice, No Airway Compromise Head Exam: Atraumatic, Normocephalic Neck: Normal Inspection, Supple, Non-Tender, Full Range of Motion Respiratory/Chest: No Respiratory Distress, Lungs Clear, Normal Breath Sounds, No Accessory Muscle Use, Chest Non-Tender Cardiovascular: Normal Peripheral Pulses, Regular Rate, Rhythm, No Edema, No Gallop, No JVD, No Rub, Systolic Murmur GI/Abdominal: Normal Bowel Sounds, Soft, Non-Tender, No Organomegaly, No Distention, No Abnormal Bruit, No Mass (Male) Exam: Deferred Rectal (Males) Exam: Deferred Neuro Exam (Abbreviated): Alert, Oriented, CN II-XII Intact, Normal Cognition, No Motor/Sensory Deficits Extremities: Normal Inspection, Normal Range of Motion, Non-Tender, No Pedal Edema, Normal Capillary Refill Psychiatric: Normal Affect, Normal Mood Skin Exam: Warm, Dry, Intact, Normal Color, No Rash Course - Vital Signs Last Recorded V/S: Last Vital Signs Temp 36.8 C 06/18/17 14:16 Pulse 65 06/18/17 14:16 Resp 18 06/18/17 14:16 BP 148/67 H 06/18/17 14:16 Pulse Ox 97 06/18/17 14:16 - Orders/Labs/Meds Orders: Active Orders 24 hr Category Date Time Status EKG Documentation Completion [RC] URGENT Care 06/18/17 14:07 Active Head wo Cont [CT] Urgent Exams 06/18/17 13:56 Taken UA W/MICROSCOPIC [URIN] Stat Lab 06/18/17 14:54 Ordered Labs: Laboratory Tests 06/18/17 06/18/17 06/18/17 Range/Units 14:06 14:27 14:27 WBC 7.2 (5.0-10.0) 10^3/uL RBC 4.94 (4.6-6.2) 10^6/uL Hgb 13.8 L (14.0-18.0) g/dL Hct 40.6 (40.0-54.0) % MCV 82.2 D (80-100) fL MCH 27.9 (27.0-34.0) pg MCHC 34.0 (33.0-35.0) g/dL Plt Count 109 L (150-450) 10^3/uL Neut % (Auto) 72.2 (42.2-75.2) % Lymph % (Auto) 19.5 L (20.5-50.1) % [place] % (Auto) 7.2 (2-8) % Eos % (Auto) 0.8 L (1.0-3.0) % Baso % (Auto) 0.3 (0.0-1.0) % PT 19.5 H (9.0-12.0) SEC INR 1.9 H (0.9-1.2) Sodium (135-145) mmol/L Potassium (3.6-5.0) mmol/L Chloride (101-111) mmol/L Carbon Dioxide (21.0-31.0) mmol/L Anion Gap BUN (7-18) mg/dL Creatinine (0.6-1.3) mg/dL Est Cr Clr Drug Dosing mL/min Estimated GFR (MDRD) BUN/Creatinine Ratio Glucose (74-105) mg/dL POC Glucose 109 (83-110) mg/dl Calcium (8.4-10.2) mg/dl Total Bilirubin (0.2-1.0) mg/dL AST (10-42) IU/L ALT (10-60) IU/L Alkaline Phosphatase (42-121) IU/L Troponin I (0.00-0.02) ng/ml Total Protein (6.7-8.2) g/dl Albumin (3.2-5.5) g/dl Globulin Albumin/Globulin Ratio //18 Range/Units 14:27 WBC (5.0-10.0) 10^3/uL RBC (4.6-6.2) 10^6/uL Hgb (14.0-18.0) g/dL Hct (40.0-54.0) % MCV (80-100) fL MCH (27.0-34.0) pg MCHC (33.0-35.0) g/dL Plt Count (150-450) 10^3/uL Neut % (Auto) (42.2-75.2) % Lymph % (Auto) (20.5-50.1) % [place] % (Auto) (2-8) % Eos % (Auto) (1.0-3.0) % Baso % (Auto) (0.0-1.0) % PT (9.0-12.0) SEC INR (0.9-1.2) Sodium 132 L (135-145) mmol/L Potassium 3.6 (3.6-5.0) mmol/L Chloride 96 L (101-111) mmol/L Carbon Dioxide 25.0 (21.0-31.0) mmol/L Anion Gap 14.6 BUN 23 H (7-18) mg/dL Creatinine 0.9 (0.6-1.3) mg/dL Est Cr Clr Drug Dosing 60.06 mL/min Estimated GFR (MDRD) > 60 BUN/Creatinine Ratio 25.55 Glucose 121 H (74-105) mg/dL POC Glucose (83-110) mg/dl Calcium 8.6 (8.4-10.2) mg/dl Total Bilirubin 0.7 (0.2-1.0) mg/dL AST 33 (10-42) IU/L ALT 16 (10-60) IU/L Alkaline Phosphatase 51 (42-121) IU/L Troponin I < 0.02 (0.00-0.02) ng/ml Total Protein 6.7 (6.7-8.2) g/dl Albumin 4.0 (3.2-5.5) g/dl Globulin 2.7 Albumin/Globulin Ratio 1.48 Departure - Departure Time of Disposition: 15:18 Disposition: Home, Self-Care 01 Condition: Fair Clinical Impression: TIA (transient ischemic attack) Qualifiers: Transient cerebral ischemia type: unspecified Qualified Code(s): G45.9 - Transient cerebral ischemic attack, unspecified - Discharge Information Instructions: Transient Ischemic Attack, [id number] Forms: ED Department Discharge Care Plan Goals: The patient and family were advised of the examination, lab, x-ray, CT and EKG results during the visit. The patient was encouraged to continue to monitor for any additional symptoms. If the patient has any additional symptoms or concerns , the patient should either return to the emergency department or visit his primary care facility. - My Orders Last 24 Hours: My Active Orders 06/18/17 13:56 Head wo Cont [CT] Urgent 06/18/17 14:07 EKG Documentation Completion [RC] URGENT 06/18/17 14:54 UA W/MICROSCOPIC [URIN] Stat - Assessment/Plan Last 24 Hours: My Active Orders 06/18/17 13:56 Head wo Cont [CT] Urgent 06/18/17 14:07 EKG Documentation Completion [RC] URGENT 06/18/17 14:54 UA W/MICROSCOPIC [URIN] Stat
[2017-06-18 14:57] LABS: CHLORIDE,CL 96 mmol/L (101-111); SODIUM,NA 132 mmol/L (135-145)
--- NOTE | 2017-06-19 13:27 | EKG ---
06/18/2017- LEDY CRAWFORD - FINDINGS: EKG, per my reading, shows sinus rhythm at the rate of 63, right bundle-branch block. [facility] /[id number]
== END 2017-06-18 15:30 | disposition home or self-care (01) ==
LOC: DL.ED 14:04
DX: G45.9 Transient cerebral ischemic attack, unspecified (principal); E78.00 Pure hypercholesterolemia, unspecified; I10 Essential (primary) hypertension; E11.9 Type 2 diabetes mellitus without complications; Z79.82 Long term (current) use of aspirin; Z79.4 Long term (current) use of insulin; Z79.01 Long term (current) use of anticoagulants; Z79.899 Other long term (current) drug therapy
CPT/HCPCS: 36415; 70450; 80053; 81001; 82962; 84484; 85025; 85610; 93005; 99285

== ENCOUNTER 2017-08-13 15:17 | Emergency (ER) | payer OTHER ==
[2017-08-13 14:36] VITALS: BP 197/76
--- NOTE | 2017-08-13 14:45 | CT ---
Clinical history: 81-year-old male with transient (brief episode) altered mentation. No known trauma and "no acute intracranial abnormality" reported on CT scan 18 June 2017 obtained for similar episod e of altered mental status with memory loss. "Subtle microvascular ischemic changes" otherwise negati ve MRI exam, 21 March 2017. Reevaluate please. Scan technique: Volume acquisition of data emergency unenhanced CT scan of the head and brain obtaine d while the patient was lying supine on the Siemens multislice scanner [place], [place]. All data archived in the PACS system for storage, reformatting and study. Interpretation: 1. Symmetric age-appropriate cerebellar and cerebral cortical atrophy pattern with underlying mirror- image normal ventricular system (tiny punctate calcifications basal ganglia on the right unchanged si nce 15 June exam). Physiologic pineal and choroid plexus Ca++. 2. Some scattered microvascular ischemic changes periventricular white matter as noted on previous ex ams. 3. No new supratentorial or posterior fossa mass lesion. No hydrocephalus. 4. No sign of acute intracerebral/intraventricular/subarachnoid bleed. 5. Uniformly thick bony calvarium and symmetric clear pneumatization of the mastoid/paranasal sinuses . 6. No abnormal extracerebral/intracranial epidural or subdural fluid collections (no subdural hematom as). 7. Mainstem unremarkable. CONCLUSION: No acute new intracranial abnormality when compared directly to previous CT images May.
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
[2017-08-13 15:47] LABS: CHLORIDE,CL 105 mmol/L (101-111); SODIUM,NA 139 mmol/L (135-145)
--- NOTE | 2017-08-15 11:33 | EKG ---
08/13/2017- LEDY CRAWFORD - FINDINGS: EKG, per my reading, shows sinus rhythm at the rate of 59 with a AL interval of 276. MOD /[id number]
== END 2017-08-13 15:56 | disposition home or self-care (01) ==
LOC: DL.ED 15:17
DX: R55 Syncope and collapse (principal); I48.91 Unspecified atrial fibrillation; E78.00 Pure hypercholesterolemia, unspecified; I10 Essential (primary) hypertension; E11.9 Type 2 diabetes mellitus without complications; Z79.82 Long term (current) use of aspirin; Z79.01 Long term (current) use of anticoagulants; Z79.4 Long term (current) use of insulin; Z79.899 Other long term (current) drug therapy
CPT/HCPCS: 36415; 70450; 80053; 81001; 84484; 85025; 85610; 93005; 99285

== ENCOUNTER → 2017-08-28 | Day surgery (SDC) | payer OTHER ==
[~2017-08-28] MED LIST: Dextrose 5%-0.45% NaCl 1,000 ML IV SCH; Midazolam 1 MG/ML 2 ML SDV IV ONE; Midazolam 1 MG/ML 2 ML SDV ONE; Sodium Chloride 0.9% 10 ML Syringe FLUSH PRN; fentaNYL 100 MCG/2 ML SDV IV ONE; fentaNYL 100 MCG/2 ML SDV ONE
--- NOTE | 2017-08-28 08:13 | OR ---
DATE: 08/28/2017 PROCEDURES PERFORMED: Esophagogastroduodenoscopy and multiple pinch biopsies. INSTRUMENT USED: GIF-H180 Olympus video panendoscope. PREMEDICATIONS: No oral or topical anesthesia used. Fentanyl 100 mcg intravenous, Versed 1 mg intravenous. Nasal O2 cannula. The procedure was done under pulse oximetry, BP recording, and rn cardiac rehab. INDICATION: The patient with an unexplained iron-deficiency anemia. Esophagogastroduodenoscopy is performed for detection of any active erosive lesions, malignancy also under consideration, H. pylori status to be determined, small bowel biopsies to be taken for celiac disease if indicated, endoscopic hemostasis therapy if needed. DESCRIPTION OF PROCEDURE: The scope was passed with ease. Adequate visualization of the esophagus was made from proximal to distal areas. No upper esophageal lesions identified. No distal esophageal stricture. No uphill or downhill esophageal varices. No Melina-Nieves tear. No evidence of erosive esophagitis by [place] criteria. No esophageal polyp or tumor mass identified. Z-line was seen at around 40 cm distal to the oral verge. Hiatal hernia was noted. No proximal gastric varices noted. Gastric fundus examination by retroflexion showed no polypoid lesions. No gastric ulcer, malignant mass, or vascular ectasia identified. Duodenal bulb showed no ulcer. Visualized second part of the duodenum was unremarkable. Multiple pinch biopsies, 4 in number, were taken from different areas of the second part of the duodenum; and tissues were also obtained from the duodenal bulb at 9 and 12 o'clock positions and sent for any histopathologic evidence of celiac disease. Multiple pinch biopsies were taken from the gastric antrum and proximal body and sent for PyloriTek test for H. pylori and histopathology. No bleeding was noted from any of the visualized areas at the completion of examination. Photographs were taken of the duodenal bulb, gastric, antrum, fundus, and distal esophagus. IMPRESSION: Hiatal hernia. The patient tolerated the procedure well. [facility] /[id number]
[2017-08-28 09:31] VITALS: BP 156/62
--- NOTE | 2017-08-28 12:12 | LETTER ---
08/28/[address] [facility] [address] [place] [address] RE: LEDY CRAWFORD : [address] Pepe: Mr. Ledy Crawford had esophagogastroduodenoscopy done this morning and he tolerated the procedure well. I herewith send a copy of the endoscopy note and photographs for your review. Thank you. Sincerely, [facility] /[id number]
== END | disposition home or self-care (01) ==
LOC: DL.ENDO 05:43
PROVIDERS: ATTEND Internal Medicine Gastroenterology
DX: D50.9 Iron deficiency anemia, unspecified (principal); K29.50 Unspecified chronic gastritis without bleeding; K31.9 Disease of stomach and duodenum, unspecified; K44.9 Diaphragmatic hernia without obstruction or gangrene; I10 Essential (primary) hypertension; E11.9 Type 2 diabetes mellitus without complications; E78.5 Hyperlipidemia, unspecified; I48.0 Paroxysmal atrial fibrillation; Z95.2 Presence of prosthetic heart valve; Z79.82 Long term (current) use of aspirin
CPT/HCPCS: 43239; 87077; J2250; J3010; J7042

== ENCOUNTER 2017-10-31 00:43 | Emergency (ER) | payer OTHER ==
[2017-10-31 00:59] VITALS: BP 135/74
[2017-10-31] MEDS ORDERED: Iopamidol 612 MG/ML 100 ML Bottle IVPUSH ONE (01:09)
--- NOTE | 2017-10-31 01:23 | EDM.PDOC ---
ED HPI GENERAL MEDICAL PROBLEM - General Chief Complaint: Trauma Stated Complaint: FELL AND HURT SIDE [id number] Time Seen by Provider: 10/31/17 01:00 Source of Information: Reports: Patient History Limitations: Reports: No Limitations - History of Present Illness INITIAL COMMENTS - FREE TEXT/NARRATIVE: HPI - This 81 yo male patient reports to the ED due to a ground level fall. The patient reports that he tripped about 1 hour prior to coming to the ED while he was at home. The patient reports pain and swelling in his left lateral abdomen and pain with swelling in his left wrist. The patient reports no loss of consciousness before, during or after the fall. The patient is on blood thinners and has been taking the medications as prescribed. Primary Survey Airway - open with good air exchange Breathing - non-labored Circulation - no evidence of external bleeding. Large hematoma to the left lateral abdomen. Hematoma to the left wrist Deformity - no obvious deformity Expose - the areas of injury GCS - 15 (upon arrival) Secondary Survey HEENT Head - normocephalix, atraumatic Eyes - PERRLA (previous surgery to left eye) Ears - external examination is normal, canals open, TMs normal Nose - mucosa pink, no bleeding Mouth - oral pharynx, normal with no evidence of trauma Neck - subtle, no pain with palpation, no limits to range of motion Chest - lung sounds are clear and equal bilaterally, the patient has some pain to the left lateral ribs (at the top of the hematoma) Abdomen - the patient has a large hematoma to the left lateral abdomen that is tender to palpation Pelvis - stable Extremities left wrist hematoma with no obvious deformities. Provider Trauma Notes Arrival Time: 55 GCS on Arrival: 15 C-collar present on arrival: No GCS at 1 hour: 15 Off spine board: NA Time primary survey: 101 Time secondary survey: 103 Time C-collar cleared: NA By: Time removed: GCS on discharge: 15 Onset: Today Onset Date: 10/31/17 Duration: Hour(s): Location: Reports: Chest, Abdomen, Upper Extremity, Left Quality: Reports: Ache, Dull Severity: Moderate Improves with: Reports: None Worsens with: Reports: None Associated Symptoms: Reports: No Other Symptoms Left Lower Flank Pain Score (Numeric/FACES): 5 Left Wrist Pain Score (Numeric/FACES): 2 - Related Data Allergies Allergy/AdvReac Type Severity Reaction Status Date / Time No Known Allergies Allergy Verified 10/31/17 00:59 Home Meds: Home Meds Aspirin [Nan Chewable Aspirin] 81 mg PO DAILY 02/27/14 [History] Calcium Citrate/Vitamin D3 [Calcium Citrate + D] 1 tab PO BID 02/27/14 [History] Simvastatin [Zocor] 20 mg PO DAILY 02/27/14 [History] metFORMIN [Glucophage] 1,000 mg PO BIDM 02/27/14 [History] Docusate Sodium [Colace] 100 mg PO BID PRN 09/22/15 [History] Cetirizine [ZyrTEC] 10 mg PO DAILY 03/09/17 [History] Losartan [Cozaar] 25 mg PO DAILY 03/09/17 [History] Saxagliptin [Onglyza] 5 mg PO DAILY 03/09/17 [History] hydroCHLOROthiazide [Hydrochlorothiazide] 50 mg PO DAILY 03/09/17 [History] Clotrimazole [Clotrimazole 1%] 1 gm PO ASDIRECTED 08/23/17 [History] Insulin Detemir [Levemir] 23 units SQ BEDTIME 08/23/17 [History] Pioglitazone [Actos] 15 mg PO ASDIRECTED 08/23/17 [History] Warfarin Sodium [Coumadin] 4.5 mg PO DAILY 08/23/17 [History] Past Medical History HEENT History: Reports: Impaired Vision Cardiovascular History: Reports: Afib, High Cholesterol, Hypertension Respiratory History: Reports: None Gastrointestinal History: Reports: None Genitourinary History: Reports: None Musculoskeletal History: Reports: None Neurological History: Reports: None Psychiatric History: Reports: None Endocrine/Metabolic History: Reports: Diabetes, Type II Hematologic History: Reports: Anemia, B12 Deficiency, Other (See Below) Immunologic History: Reports: None Oncologic (Cancer) History: Reports: None Dermatologic History: Reports: None - Infectious Disease History Infectious Disease History: Reports: Measles, Mumps - Past Surgical History Head Surgeries/Procedures: Reports: None HEENT Surgical History: Reports: Cataract Surgery Other HEENT Surgeries/Procedures: BILATERAL CATARACT SURGERY Cardiovascular Surgical History: Reports: Other (See Below) Other Cardiovascular Surgeries/Procedures: open heart surgery (aortic valve replacement in july 13, 2015) Respiratory Surgical History: Reports: None GI Surgical History: Reports: Appendectomy, Colonoscopy, EGD Male Surgical History: Reports: None Endocrine Surgical History: Reports: None Neurological Surgical History: Reports: None Musculoskeletal Surgical History: Reports: None Social & Family History - Family History Family Medical History: Noncontributory - Tobacco Use Smoking Status *Q: Unknown Ever Smoked Second Hand Smoke Exposure: No - Caffeine Use Caffeine Use: Reports: Coffee, Soda, Tea - Recreational Drug Use Recreational Drug Use: No - Living Situation & Occupation Living situation: Reports: , with Spouse Occupation: Retired Review of Systems - Review of Systems Review Of Systems: ROS reveals no pertinent complaints other than HPI. ED EXAM, GENERAL - Physical Exam Exam: See Below Exam Limited By: No Limitations General Appearance: Alert, WD/WN, No Apparent Distress Eye Exam: Bilateral Eye: EOMI, Normal Inspection, PERRL Ears: Normal External Exam, Normal Canal, Hearing Grossly Normal, Normal TMs Nose: Normal Inspection, Normal Mucosa, No Blood Throat/Mouth: Normal Inspection, Normal Lips, Normal Teeth, Normal Gums, Normal Oropharynx, Normal Voice, No Airway Compromise Head: Atraumatic, Normocephalic Neck: Normal Inspection, Supple, Non-Tender, Full Range of Motion Respiratory/Chest: No Respiratory Distress, Lungs Clear, Normal Breath Sounds, No Accessory Muscle Use, Chest Non-Tender Cardiovascular: Normal Peripheral Pulses, Regular Rate, Rhythm, No Edema, No Gallop, No JVD, No Murmur, No Rub GI/Abdominal: Tender (left lateral abdomen) (Male) Exam: Deferred Rectal (Males) Exam: Deferred Back Exam: Normal Inspection, Full Range of Motion, NT Extremities: Arm Pain (left wrist contusion) Neurological: Alert, Oriented, CN II-XII Intact, Normal Cognition, Normal Gait, Normal Reflexes, No Motor/Sensory Deficits Psychiatric: Normal Affect, Normal Mood Skin Exam: Warm, Dry, Intact, Normal Color, No Rash Lymphatic: No Adenopathy Course - Vital Signs Last Recorded V/S: Last Vital Signs Temp 36.0 C 10/31/17 00:57 Pulse 62 10/31/17 00:57 Resp 19 10/31/17 00:57 BP 135/74 10/31/17 00:57 Pulse Ox 99 10/31/17 00:57 - Orders/Labs/Meds Orders: Active Orders 24 hr Category Date Time Status UA W/MICROSCOPIC [URIN] Stat Lab 10/31/17 01:05 Ordered Labs: Laboratory Tests 10/31/17 10/31/17 10/31/17 Range/Units 01:09 01:09 01:09 WBC 7.1 (5.0-10.0) 10^3/uL RBC 4.51 L (4.6-6.2) 10^6/uL Hgb 11.9 L (14.0-18.0) g/dL Hct 36.8 L (40.0-54.0) % MCV 81.6 (80-100) fL MCH 26.4 L (27.0-34.0) pg MCHC 32.3 L (33.0-35.0) g/dL Plt Count 126 L (150-450) 10^3/uL Neut % (Auto) 50.8 (42.2-75.2) % Lymph % (Auto) 37.2 (20.5-50.1) % [place] % (Auto) 9.9 H (2-8) % Eos % (Auto) 1.7 (1.0-3.0) % Baso % (Auto) 0.4 (0.0-1.0) % PT 33.8 H (9.0-12.0) SEC INR 3.5 H (0.9-1.2) Sodium 134 L (135-145) mmol/L Potassium 3.4 L (3.6-5.0) mmol/L Chloride 97 L (101-111) mmol/L Carbon Dioxide 28.0 (21.0-31.0) mmol/L Anion Gap 12.4 BUN 19 H (7-18) mg/dL Creatinine 1.0 (0.6-1.3) mg/dL Est Cr Clr Drug Dosing 56.00 mL/min Estimated GFR (MDRD) > 60 BUN/Creatinine Ratio 19.00 Glucose 131 H (74-105) mg/dL Calcium 8.6 (8.4-10.2) mg/dl Total Bilirubin 0.4 (0.2-1.0) mg/dL AST 34 (10-42) IU/L ALT 18 (10-60) IU/L Alkaline Phosphatase 62 (42-121) IU/L Total Protein 6.7 (6.7-8.2) g/dl Albumin 4.0 (3.2-5.5) g/dl Globulin 2.7 Albumin/Globulin Ratio 1.48 Meds: Medications Discontinued Medications Generic Name Dose Route Start Last Admin Trade Name Jazmin PRN Reason Stop Dose Admin Iopamidol 100 ml 10/31/17 01:09 10/31/17 01:41 Isovue-300 (61%) IVPUSH 10/31/17 01:10 100 ml ONETIME ONE Administration Departure - Departure Time of Disposition: 02:28 Disposition: Home, Self-Care 01 Condition: Fair Clinical Impression: Fall from ground level Hematoma of abdominal wall Qualifiers: Encounter type: initial encounter Qualified Code(s): S30.1XXA - Contusion of abdominal wall, initial encounter Traumatic hematoma of left wrist Qualifiers: Encounter type: initial encounter Qualified Code(s): S60.212A - Contusion of left wrist, initial encounter - Discharge Information *PRESCRIPTION DRUG MONITORING PROGRAM REVIEWED*: Not Applicable *COPY OF PRESCRIPTION DRUG MONITORING REPORT IN PATIENT BURT: Not Applicable Instructions: Blunt Abdominal Trauma Forms: ED Department Discharge Care Plan Goals: The patient was advised of the examination and lab results during the visit. The patient's left wrist was wrapped with an shun wrap. The patient was advised to skip his Warfarin dose in the morning. The patient should follow-up by the end of the week to have his PT/INR checked in the clinic. If the patient has any additional symptoms or concerns, the patient should visit his primary care facility or return to the emergency department. - My Orders Last 24 Hours: My Active Orders 10/31/17 01:05 UA W/MICROSCOPIC [URIN] Stat - Assessment/Plan Last 24 Hours: My Active Orders 10/31/17 01:05 UA W/MICROSCOPIC [URIN] Stat
[2017-10-31 01:38] LABS: ANION GAP 12.4; CHLORIDE,CL 97 mmol/L (101-111); SODIUM,NA 134 mmol/L (135-145)
== END 2017-10-31 02:40 | disposition home or self-care (01) ==
LOC: DL.ED 00:43
DX: S30.1XXA Contusion of abdominal wall, initial encounter (principal); S60.212A Contusion of left wrist, initial encounter; I10 Essential (primary) hypertension; E11.9 Type 2 diabetes mellitus without complications; Z79.4 Long term (current) use of insulin; Z79.82 Long term (current) use of aspirin; Z79.01 Long term (current) use of anticoagulants; Z79.899 Other long term (current) drug therapy; W01.0XXA Fall on same level from slipping, tripping and stumbling without subsequent striking against object, initial encounter; Y92.009 Unspecified place in unspecified non-institutional (private) residence as the place of occurrence of the external cause
CPT/HCPCS: 36415; 71260; 73110; 74177; 80053; 85025; 85610; 99285; Q9967

== ENCOUNTER 2017-11-03 12:39 | Inpatient (IN) | payer OTHER ==
--- NOTE | 2017-11-03 13:42 | EDM.PDOC ---
ED HPI GENERAL MEDICAL PROBLEM - General Chief Complaint: General Stated Complaint: pain [id number] Time Seen by Provider: 11/03/17 13:37 - History of Present Illness INITIAL COMMENTS - FREE TEXT/NARRATIVE: This is a 81 y/o M with a significant history of recent ground level fall and left abdominal wall hematoma 10/31/17, afib and aortic valve replacement (procine/ bovine), on coumadin, T2DM, anemia /w B12 deficiency who is presenting for increasing pain in the left side of his abdomen. Patient states that his pain was only mild several days ago but it increased in severity to moderate. The pain is dull and non radiating. Alleviated by rest and laying flat, exacerbated by movement. No fevers or chills. No dizziness. No chest pain or dyspnea. No hematuria. The left wrist pain and swelling has improved. Patient restarted his coumadin today. He has not seen his PCP. Left Back Pain Score (Numeric/FACES): 8 - Related Data Allergies Allergy/AdvReac Type Severity Reaction Status Date / Time No Known Allergies Allergy Verified 11/03/17 13:10 Home Meds: Home Meds Aspirin [Nan Chewable Aspirin] 81 mg PO DAILY 02/27/14 [History] Calcium Citrate/Vitamin D3 [Calcium Citrate + D] 1 tab PO BID 02/27/14 [History] Simvastatin [Zocor] 20 mg PO DAILY 02/27/14 [History] metFORMIN [Glucophage] 1,000 mg PO BIDM 02/27/14 [History] Docusate Sodium [Colace] 100 mg PO BID PRN 09/22/15 [History] Cetirizine [ZyrTEC] 10 mg PO DAILY 03/09/17 [History] Losartan [Cozaar] 25 mg PO DAILY 03/09/17 [History] Saxagliptin [Onglyza] 5 mg PO DAILY 03/09/17 [History] hydroCHLOROthiazide [Hydrochlorothiazide] 50 mg PO DAILY 03/09/17 [History] Clotrimazole [Clotrimazole 1%] 1 gm PO ASDIRECTED 08/23/17 [History] Insulin Detemir [Levemir] 23 units SQ BEDTIME 08/23/17 [History] Pioglitazone [Actos] 15 mg PO ASDIRECTED 08/23/17 [History] Warfarin Sodium [Coumadin] 4.5 mg PO DAILY 08/23/17 [History] Past Medical History HEENT History: Reports: Impaired Vision Cardiovascular History: Reports: Afib, High Cholesterol, Hypertension Respiratory History: Reports: None Gastrointestinal History: Reports: None Genitourinary History: Reports: None Musculoskeletal History: Reports: None Neurological History: Reports: None Psychiatric History: Reports: None Endocrine/Metabolic History: Reports: Diabetes, Type II Hematologic History: Reports: Anemia, B12 Deficiency Immunologic History: Reports: None Oncologic (Cancer) History: Reports: None Dermatologic History: Reports: None - Infectious Disease History Infectious Disease History: Reports: Measles, Mumps - Past Surgical History Head Surgeries/Procedures: Reports: None HEENT Surgical History: Reports: Cataract Surgery Other HEENT Surgeries/Procedures: BILATERAL CATARACT SURGERY Cardiovascular Surgical History: Reports: Other (See Below) Other Cardiovascular Surgeries/Procedures: open heart surgery (aortic valve replacement in july 13, 2015). Pig valve Respiratory Surgical History: Reports: None GI Surgical History: Reports: Appendectomy, Colonoscopy, EGD Male Surgical History: Reports: None Endocrine Surgical History: Reports: None Neurological Surgical History: Reports: None Musculoskeletal Surgical History: Reports: None Social & Family History - Family History Family Medical History: Noncontributory - Tobacco Use Smoking Status *Q: Never Smoker Second Hand Smoke Exposure: Yes - Caffeine Use Caffeine Use: Reports: Coffee, Soda, Tea - Living Situation & Occupation Living situation: Reports: , with Spouse Occupation: Retired ED ROS GENERAL - Review of Systems Review Of Systems: ROS reveals no pertinent complaints other than HPI. ED EXAM, GENERAL - Physical Exam Exam: See Below Exam Limited By: No Limitations General Appearance: Alert, WD/WN, No Apparent Distress Head: Atraumatic, Normocephalic Neck: Normal Inspection, Supple, Non-Tender Respiratory/Chest: No Respiratory Distress, Lungs Clear, Normal Breath Sounds, No Accessory Muscle Use, Chest Non-Tender Cardiovascular: Normal Peripheral Pulses, Regular Rate, Rhythm, Systolic Murmur (ejection systolic murmur grade 2 most prominent over left 2nd ICS) GI/Abdominal: Normal Bowel Sounds, Soft, No Distention (bruising and mild distension over the left side of the abdomen and iliac crest), Tender (left sided abdominal tenderness), Other Extremities: Joint Swelling (left wrist and sourunding tissue with swellig and bruising. mild tenderness to palpation) Neurological: Alert, Oriented, No Motor/Sensory Deficits Skin Exam: Warm, Intact Course - Vital Signs Text/Narrative:: Noticed Hb decrease from 11.9 to 8.1. INR 3.2 despite holding warfarin for several days. UA unremarkable. Cr stable. CTAP /w contrast shows increase in the hematoma size. Patient well and stable. IV KCl 5mg Given. IVF 1L given. KCl replaced with 40mg PO x 1 and 10mg IV x 1. Percocet for pain. Discussed case with Dr. Dietz for observation and monitoring of H&H as inpatient. Last Recorded V/S: Last Vital Signs Temp 37.1 C 11/03/17 16:15 Pulse 77 11/03/17 16:15 Resp 18 11/03/17 16:15 BP 104/48 L 11/03/17 16:15 Pulse Ox 96 11/03/17 16:15 - Orders/Labs/Meds Orders: Active Orders 24 hr Category Date Time Status URINALYSIS W/MICROSCOPIC [UA W/MICROSCOPIC] [URIN] Stat Lab 11/03/17 13:44 Ordered Labs: Laboratory Tests 11/03/17 11/03/17 11/03/17 Range/Units 13:44 13:47 13:47 WBC 9.0 (5.0-10.0) 10^3/uL RBC 3.03 L (4.6-6.2) 10^6/uL Hgb 8.1 L D (14.0-18.0) g/dL Hct 25.0 L (40.0-54.0) % MCV 82.5 (80-100) fL MCH 26.7 L (27.0-34.0) pg MCHC 32.4 L (33.0-35.0) g/dL Plt Count 119 L (150-450) 10^3/uL Neut % (Auto) 73.8 (42.2-75.2) % Lymph % (Auto) 15.6 L (20.5-50.1) % [facility] % (Auto) 10.0 H (2-8) % Eos % (Auto) 0.3 L (1.0-3.0) % Baso % (Auto) 0.3 (0.0-1.0) % PT 31.0 H (9.0-12.0) SEC INR 3.2 H (0.9-1.2) Sodium (135-145) mmol/L Potassium (3.6-5.0) mmol/L Chloride (101-111) mmol/L Carbon Dioxide (21.0-31.0) mmol/L Anion Gap BUN (7-18) mg/dL Creatinine (0.6-1.3) mg/dL Est Cr Clr Drug Dosing mL/min Estimated GFR (MDRD) Glucose (74-105) mg/dL Calcium (8.4-10.2) mg/dl Urine Color Yellow (YELLOW) Urine Appearance Clear (CLEAR) Urine pH 7.0 (5.0-9.0) Ur Specific [place] 1.020 (1.005-1.030) Urine Protein Trace H (NEGATIVE) Urine Glucose (UA) 500 H (NEGATIVE) Urine Ketones Trace H (NEGATIVE) Urine Occult Blood Trace-intact H (NEGATIVE) Urine Nitrite Negative (NEGATIVE) Urine Bilirubin Small H (NEGATIVE) Urine Urobilinogen 1.0 (0.2-1.0) mg/dL Ur Leukocyte Esterase Negative (NEGATIVE) Urine RBC 0-5 /HPF Urine WBC 0-5 (0-5/HPF) /HPF Ur Epithelial Cells Few /HPF Urine Bacteria Not seen (0-FEW/HPF) /HPF Hyaline Casts Rare H /LPF 11/03/17 Range/Units 13:47 WBC (5.0-10.0) 10^3/uL RBC (4.6-6.2) 10^6/uL Hgb (14.0-18.0) g/dL Hct (40.0-54.0) % MCV (80-100) fL MCH (27.0-34.0) pg MCHC (33.0-35.0) g/dL Plt Count (150-450) 10^3/uL Neut % (Auto) (42.2-75.2) % Lymph % (Auto) (20.5-50.1) % [facility] % (Auto) (2-8) % Eos % (Auto) (1.0-3.0) % Baso % (Auto) (0.0-1.0) % PT (9.0-12.0) SEC INR (0.9-1.2) Sodium 131 L (135-145) mmol/L Potassium 2.9 L (3.6-5.0) mmol/L Chloride 91 L (101-111) mmol/L Carbon Dioxide 28.0 (21.0-31.0) mmol/L Anion Gap 14.9 BUN 19 H (7-18) mg/dL Creatinine 1.1 (0.6-1.3) mg/dL Est Cr Clr Drug Dosing 50.91 mL/min Estimated GFR (MDRD) > 60 Glucose 185 H (74-105) mg/dL Calcium 8.8 (8.4-10.2) mg/dl Urine Color (YELLOW) Urine Appearance (CLEAR) Urine pH (5.0-9.0) Ur Specific [place] (1.005-1.030) Urine Protein (NEGATIVE) Urine Glucose (UA) (NEGATIVE) Urine Ketones (NEGATIVE) Urine Occult Blood (NEGATIVE) Urine Nitrite (NEGATIVE) Urine Bilirubin (NEGATIVE) Urine Urobilinogen (0.2-1.0) mg/dL Ur Leukocyte Esterase (NEGATIVE) Urine RBC /HPF Urine WBC (0-5/HPF) /HPF Ur Epithelial Cells /HPF Urine Bacteria (0-FEW/HPF) /HPF Hyaline Casts /LPF Meds: Medications Discontinued Medications Generic Name Dose Route Start Last Admin Trade Name Freq PRN Reason Stop Dose Admin Potassium Chloride 10 meq/ 100 mls @ 100 mls/hr 11/03/17 14:24 11/03/17 14:38 Premix IV 11/03/17 15:23 100 mls/hr ONETIME ONE Administration Sodium Chloride 1,000 mls @ 999 mls/hr 11/03/17 14:25 11/03/17 14:37 Normal Saline IV 11/03/17 15:25 999 mls/hr .BOLUS ONE Administration Phytonadione 5 mg/ Sodium 50.5 mls @ 100 mls/hr 11/03/17 15:19 11/03/17 15:30 Chloride IV 11/03/17 15:49 100 mls/hr NOW ONE Administration Iopamidol 75 ml 11/03/17 14:23 11/03/17 15:11 Isovue-300 (61%) IVPUSH 11/03/17 14:24 75 ml ONETIME ONE Administration Oxycodone/Acetaminophen 1 tab 11/03/17 14:27 11/03/17 14:41 Percocet 325-5 Mg PO 11/03/17 14:28 1 tab ONETIME ONE Administration Potassium Chloride 40 meq 11/03/17 14:26 11/03/17 14:42 Klor-Con 10 PO 11/03/17 14:27 40 meq ONETIME ONE Administration Departure - Departure Time of Disposition: 16:03 Disposition: Admitted As Inpatient 68 Clinical Impression: Hematoma, Anemia due to blood loss, acute, Anticoagulated on warfarin - Discharge Information *PRESCRIPTION DRUG MONITORING PROGRAM REVIEWED*: Not Applicable *COPY OF PRESCRIPTION DRUG MONITORING REPORT IN PATIENT BURT: Not Applicable
[2017-11-03 14:16] LABS: ANION GAP 14.9; CHLORIDE,CL 91 mmol/L (101-111); SODIUM,NA 131 mmol/L (135-145)
[2017-11-03] MEDS ORDERED: Iopamidol 612 MG/ML 75 ML Bottle IVPUSH ONE (14:23)
[2017-11-03] MEDS ORDERED: Potassium Chloride 10 MEQ in Premix Bag 1 BAG IV ONE (14:24)
[2017-11-03] MEDS ORDERED: Sodium Chloride 0.9% 1,000 ML IV ONE (14:25)
[2017-11-03] MEDS ORDERED: Potassium Chloride 10 MEQ Tab.ER PO ONE (14:26)
[2017-11-03] MEDS ORDERED: Acetaminophen/oxyCODONE 325-5 MG Tab PO ONE (14:27)
[2017-11-03] MEDS ORDERED: Phytonadione 5 MG in Sodium Chloride 0.9% 50 ML IV ONE (15:19)
[2017-11-03] MEDS ORDERED: Sodium Chloride 0.9% 10 ML Syringe FLUSH PRN (16:29)
[2017-11-03] MEDS ORDERED: Acetaminophen 325 MG Tab PO PRN (16:29)
[2017-11-03] MEDS ORDERED: Morphine 2 MG/ML Syringe IVPUSH PRN (16:29)
[2017-11-03] MEDS: metFORMIN 500 MG Tab PO SCH (18:14)
[2017-11-03] MEDS: Calcium Carbonate/Vitamin D3 1250 MG-200 Unit Tab PO SCH (21:59)
[2017-11-03] MEDS: Acetaminophen/oxyCODONE 325-5 MG Tab PO PRN (21:59)
[2017-11-03] MEDS: Docusate Sodium 100 MG Cap PO SCH (21:59)
[2017-11-03] MEDS: Insulin Detemir 100 Units/ML 3 ML Pen SUBCUT SCH (22:02)
--- NOTE | 2017-11-03 22:40 | HP ---
CHIEF COMPLAINT: Abdominal wall pain and bruising. HISTORY OF PRESENT ILLNESS: The patient is a 81-year-old gentleman with past medical history of atrial fibrillation, aortic valve replacement with bioprosthetic valve, type 2 diabetes mellitus, B12 deficiency anemia, who was admitted through the emergency room because of increasing abdominal wall pain and increasing in the size of the hematoma on the left side of the abdominal wall. The patient had a ground level fall 5 days ago and was seen in the emergency room, had a CAT scan of the abdomen and it showed hematoma on the left side of the abdomen. He was instructed to hold his Coumadin and follow up with his PCP, but apparently the patient did not see his PCP and mentioned that he restarted his Coumadin again today. For the last several days, he has been having some increase in the abdominal wall pain and increase in size of the hematoma. The patient denies though any headache, lightheadedness, fever, chills, chest pain, shortness of breath, nor any other associated symptoms and because of the above symptoms, he presented again today in the emergency room and a followup CAT scan of the abdomen showed increasing abdominal wall hematoma, and there is also a drop in his hemoglobin when compared to last Sunday's hemoglobin, and his INR is still elevated. Because of this, he was then admitted for further evaluation and management. PAST MEDICAL HISTORY: As in HPI. REVIEW OF SYSTEMS: As in HPI. The rest of the review of systems is negative. SOCIAL HISTORY: The patient is . Nonsmoker, nonalcohol drinker. HOME MEDICATIONS: 1. Aspirin. 2. Calcium with vitamin D. 3. Simvastatin. 4. Metformin. 5. Docusate. 6. Zyrtec. 7. Losartan. 8. Onglyza. 9. Hydrochlorothiazide. 10.Clotrimazole. 11.Insulin Levemir. 12.Actos. 13.Coumadin. FAMILY HISTORY: Noncontributory. PHYSICAL EXAMINATION: General: The patient is alert and oriented, not in any acute distress. Vital Signs: Blood pressure is 128/53, pulse of 82, respiration of 18, temperature of 98. SHEENT: Normocephalic. There are no signs of trauma. Neck: Supple. No JVD, no lymphadenopathy. Heart: Regular rate and rhythm. No gallops. No rubs. There is a grade 2/6 systolic ejection murmur. Lungs: Equal bilaterally. No crackles. No wheezing. Abdomen: Remarkable for the ecchymosis and bruising on the lateral aspect of the left abdominal wall area and also some swelling. There is reproducible tenderness on palpation. Bowel sounds positive. Extremities: Negative for any gross deformities, but examination of the left arm is remarkable for some ecchymosis and some swelling on the left wrist, but range of motion is good. LABORATORY DATA: Lab workup, CBC; WBC is 9, hemoglobin is 8.1, hematocrit is 25, platelet is 119. Urinalysis is remarkable for 500 glucose, otherwise unremarkable. ADMITTING DIAGNOSES: 1. Abdominal wall pain secondary to history of fall and increasing abdominal wall hematoma. 2. Blood loss anemia, most likely secondary to the hematoma. 3. Type 2 diabetes mellitus. 4. History of atrial fibrillation. 5. Aortic valve replacement with bioprosthetic valve. TREATMENT PLAN: The patient is going to be admitted to General Medicine Floor and the patient was given 5 mg of vitamin K IV and we will continue to monitor the patient's protime and INR and also serial hemoglobin and hematocrit, and he will be on pain management for the increasing abdominal pain and the rest of the management as necessary. The patient is a full code. [facility] /[id number]
[2017-11-04] MEDS: Aspirin 81 MG Tab.Chew PO SCH (08:17)
[2017-11-04] MEDS: Calcium Carbonate/Vitamin D3 1250 MG-200 Unit Tab PO SCH ×2 (08:17→21:54)
[2017-11-04] MEDS: metFORMIN 500 MG Tab PO SCH ×2 (08:17→18:20)
[2017-11-04] MEDS: Losartan 25 MG Tab PO SCH (08:17)
[2017-11-04] MEDS: Docusate Sodium 100 MG Cap PO SCH ×2 (08:17→21:55)
[2017-11-04 08:43] LABS: ANION GAP 12.4
[2017-11-04 08:44] LABS: CHLORIDE,CL 95 mmol/L (98-109); SODIUM,NA 135 mmol/L (138-146)
[2017-11-04] MEDS ORDERED: Potassium Chloride 10 MEQ Tab.ER PO ONE (08:50)
[2017-11-04] MEDS: Acetaminophen/oxyCODONE 325-5 MG Tab PO PRN (19:45)
[2017-11-04] MEDS ORDERED: Simvastatin 10 MG Tab PO SCH (21:00)
[2017-11-04] MEDS: SAXAGLIPTIN 5 MG PO SCH (21:53)
[2017-11-04] MEDS: PIOGLITAZONE 30 MG PO SCH (21:53)
[2017-11-04] MEDS: Simvastatin 10 MG Tab PO SCH (21:54)
[2017-11-04] MEDS: Insulin Detemir 100 Units/ML 3 ML Pen SUBCUT SCH (21:56)
--- NOTE | 2017-11-05 07:25 | PN ---
DATE: 11/04/2017 SUBJECTIVE: The patient is doing well this morning, and patient denies any chest pain, shortness of breath, abdominal pain, headache, or dizziness. Telemetry was atrial fibrillation with controlled ventricular response. OBJECTIVE: Vital Signs: Blood pressure is 129/49, pulse of 55, respirations of 20, and temperature of 98.1. Heart: Regular. Ventricular response within normal limits. Lungs: Equal bilaterally. No crackles. No wheezing. Abdomen: Still remarkable for the hematoma and ecchymosis on the left abdominal wall area as well as on the left breast area, and abdomen is soft with no significant tenderness on deep palpation. No rebound. Bowel sounds are positive. Extremities: Negative for any significant pedal edema. No calf tenderness. LABORATORY DATA: Lab workup this morning, hemoglobin dropped to 6.1 and hematocrit is 19.6. Potassium is 3.4, sodium is 135, and chloride of 95. MEDICATIONS: Reviewed. An INR this morning is 1.2. PLAN: We will transfuse him 2 units of packed RBC and we will recheck a CBC in a.m. [facility] /[id number]
[2017-11-05] MEDS: Losartan 25 MG Tab PO SCH (08:51)
[2017-11-05] MEDS: metFORMIN 500 MG Tab PO SCH ×2 (08:51→17:32)
[2017-11-05] MEDS: Docusate Sodium 100 MG Cap PO SCH ×2 (08:51→21:57)
[2017-11-05] MEDS: Calcium Carbonate/Vitamin D3 1250 MG-200 Unit Tab PO SCH ×2 (08:51→21:57)
[2017-11-05] MEDS: Aspirin 81 MG Tab.Chew PO SCH (08:51)
[2017-11-05] MEDS: SAXAGLIPTIN 5 MG PO SCH (08:52)
[2017-11-05] MEDS: PIOGLITAZONE 30 MG PO SCH (08:52)
[2017-11-05] MEDS: Acetaminophen/oxyCODONE 325-5 MG Tab PO PRN ×2 (11:55→21:58)
--- NOTE | 2017-11-05 14:46 | PCM.PN ---
- General Info Date of Service: 11/05/17 Subjective Update: Patient 81-year-old male admitted because of a fall that had led to a abdominal wall hematoma. Continues to have some discomfort on the left side of the abdomen. No constipation. No nausea or vomiting. Ambulating well without any headache or dizziness. No melena, hematochezia. No hematuria. Functional Status: Reports: Tolerating Diet, Ambulating - Patient Data Vitals - Most Recent: Last Vital Signs Temp 97.8 F 11/05/17 11:18 Pulse 56 L 11/05/17 11:18 Resp 20 11/05/17 11:18 BP 118/53 L 11/05/17 11:18 Pulse Ox 98 11/05/17 11:18 Weight - Most Recent: 172 lb 8 oz I&O - Last 24 Hours: Intake & Output 11/04/17 11/05/17 11/05/17 22:59 06:59 14:59 Intake Total 1220 50 720 Balance 1220 50 720 Lab Results Last 24 Hours: Laboratory Results - last 24 hr 11/04/17 11/04/17 11/04/17 Range/Units 06:00 16:48 20:31 WBC (5.0-10.0) 10^3/uL RBC (4.6-6.2) 10^6/uL Hgb (14.0-18.0) g/dL Hct (40.0-54.0) % MCV (80-100) fL MCH (27.0-34.0) pg MCHC (33.0-35.0) g/dL Plt Count (150-450) 10^3/uL Neut % (Auto) (42.2-75.2) % Lymph % (Auto) (20.5-50.1) % [place] % (Auto) (2-8) % Eos % (Auto) (1.0-3.0) % Baso % (Auto) (0.0-1.0) % POC Glucose 107 150 H (83-110) mg/dl Blood Type O POSITIVE Gel Antibody Screen Negative Crossmatch See Detail 11/05/17 11/05/17 11/05/17 Range/Units 06:10 07:28 11:23 WBC 5.4 (5.0-10.0) 10^3/uL RBC 3.15 L (4.6-6.2) 10^6/uL Hgb 8.6 L D (14.0-18.0) g/dL Hct 26.6 L (40.0-54.0) % MCV 84.4 (80-100) fL MCH 27.3 (27.0-34.0) pg MCHC 32.3 L (33.0-35.0) g/dL Plt Count 119 L (150-450) 10^3/uL Neut % (Auto) 65.3 (42.2-75.2) % Lymph % (Auto) 19.9 L (20.5-50.1) % [place] % (Auto) 11.3 H (2-8) % Eos % (Auto) 3.1 H (1.0-3.0) % Baso % (Auto) 0.4 (0.0-1.0) % POC Glucose 71 L 140 H (83-110) mg/dl Blood Type Gel Antibody Screen Crossmatch Med Orders - Current: Current Medications Acetaminophen (Tylenol) 650 mg PO Q4H PRN PRN Reason: Pain (Mild 1-3)/fever Aspirin (Aspirin) 81 mg PO DAILY [facility] Last Admin: 11/05/17 08:51 Dose: 81 mg Calcium Carbonate (Calcium Carbonate/Vitamin D 1250 Mg-200 Unit) 1 tab PO BID [facility] Last Admin: 11/05/17 08:51 Dose: 1 tab Docusate Sodium (Colace) 100 mg PO BID [facility] Last Admin: 11/05/17 08:51 Dose: 100 mg Insulin Detemir (Levemir) 23 unit SUBCUT BEDTIME [facility] Last Admin: 11/04/17 21:56 Dose: 23 units Losartan Potassium (Cozaar) 25 mg PO DAILY [facility] Last Admin: 11/05/17 08:51 Dose: 25 mg Metformin HCl (Glucophage) 1,000 mg PO BIDM [facility] Last Admin: 11/05/17 08:51 Dose: 1,000 mg Morphine Sulfate (Morphine) 2 mg IVPUSH Q2H PRN PRN Reason: Pain (severe 7-10) Pioglitazone [Actos] (30 Mg Own Med) 0 mg PO DAILY [facility] Last Admin: 11/05/17 08:52 Dose: 30 mg Saxagliptin [Onglyza ] 5 Mg Tab Own Med 0 mg PO DAILY [facility] Last Admin: 11/05/17 08:52 Dose: 5 mg Oxycodone/Acetaminophen (Percocet 325-5 Mg) 1 tab PO Q4H PRN PRN Reason: Pain (moderate 4-6) Last Admin: 11/05/17 11:55 Dose: 1 tab Simvastatin (Zocor) 10 mg PO BEDTIME [facility] Last Admin: 11/04/17 21:54 Dose: 10 mg Sodium Chloride (Saline Flush) 10 ml FLUSH ASDIRECTED PRN PRN Reason: Keep Vein Open Last Admin: 11/04/17 19:51 Dose: 10 ml Discontinued Medications Potassium Chloride 10 meq/ (Premix) 100 mls @ 100 mls/hr IV ONETIME ONE Stop: 11/03/17 15:23 Last Admin: 11/03/17 14:38 Dose: 100 mls/hr Sodium Chloride (Normal Saline) 1,000 mls @ 999 mls/hr IV .BOLUS ONE Stop: 11/03/17 15:25 Last Admin: 11/03/17 14:37 Dose: 999 mls/hr Phytonadione 5 mg/ Sodium (Chloride) 50.5 mls @ 100 mls/hr IV NOW ONE Stop: 11/03/17 15:49 Last Admin: 11/03/17 15:30 Dose: 100 mls/hr Iopamidol (Isovue-300 (61%)) 75 ml IVPUSH ONETIME ONE Stop: 11/03/17 14:24 Last Admin: 11/03/17 15:11 Dose: 75 ml Non-Formulary Medication (Cetirizine [Zyrtec]) 10 mg PO DAILY [facility] Oxycodone/Acetaminophen (Percocet 325-5 Mg) 1 tab PO ONETIME ONE Stop: 11/03/17 14:28 Last Admin: 11/03/17 14:41 Dose: 1 tab Pioglitazone HCl (Actos) 30 mg PO DAILY [facility] Potassium Chloride (Klor-Con 10) 40 meq PO ONETIME ONE Stop: 11/03/17 14:27 Last Admin: 11/03/17 14:42 Dose: 40 meq Potassium Chloride (Klor-Con 10) 20 meq PO ONETIME ONE Stop: 11/04/17 08:51 Last Admin: 11/04/17 11:50 Dose: 20 meq Simvastatin (Zocor) 20 mg PO BEDTIME [facility] - Exam General: Alert, Oriented Lungs: Clear to Auscultation, Normal Respiratory Effort Cardiovascular: Regular Rate, Regular Rhythm GI/Abdominal Exam: Normal Bowel Sounds, Soft, Other (Slight direct tenderness on the left lower quadrant without any rebound.) Extremities: Normal Inspection, No Pedal Edema - Problem List Review Problem List Initiated/Reviewed/Updated: Yes - My Orders Last 24 Hours: My Active Orders 11/05/17 18:00 HEMOGLOBIN/HEMATOCRIT,HH [HEME] Timed - Plan Plan:: 1. Abdominal wall hematoma. - Area still with slight tenderness. - Patient remains hemodynamically stable. - We will apply cold packs to the affected area 3 times a day 2. Anemia, secondary to the abdominal wall hematoma - Status post transfusion of 2 packed RBCs, noted appropriate increase of the hemoglobin - Repeat hemoglobin and hematocrit 3. Thrombocytopenia, secondary to the hematoma versus Coumadin use - Stable platelet, we will repeat CBC tomorrow morning 4. Diabetes, with an episode of hypoglycemia - Continue with glucose checks and watch out for further episodes of hypoglycemia 5. Warfarin anticoagulation, secondary to aortic valve replacement - Initially presented with supratherapeutic INR, was given vitamin K - Coumadin On hold due to abdominal wall hematoma and anemia, INR subtherapeutic - Consider resuming once hemoglobin is stable and no other signs of bleeding 6. Hypertension - On losartan - Monitor blood pressure closely given this area of bleeding
[2017-11-05] MEDS: Simvastatin 10 MG Tab PO SCH (21:57)
[2017-11-05] MEDS: Insulin Detemir 100 Units/ML 3 ML Pen SUBCUT SCH (22:01)
[2017-11-06] MEDS: Losartan 25 MG Tab PO SCH (08:40)
[2017-11-06] MEDS: Calcium Carbonate/Vitamin D3 1250 MG-200 Unit Tab PO SCH (08:40)
[2017-11-06] MEDS: Docusate Sodium 100 MG Cap PO SCH (08:40)
[2017-11-06] MEDS: Aspirin 81 MG Tab.Chew PO SCH (08:40)
[2017-11-06] MEDS: metFORMIN 500 MG Tab PO SCH (08:41)
[2017-11-06] MEDS: PIOGLITAZONE 30 MG PO SCH (08:41)
[2017-11-06] MEDS: SAXAGLIPTIN 5 MG PO SCH (08:42)
[2017-11-06 11:12] VITALS: BP 131/60
--- NOTE | 2017-11-06 11:53 | PCM.DCSUM1 ---
Discharge Summary - Hospital Course Free Text/Narrative:: 81 yo M with PMH of AVR on coumadin who was admitted with an abdominal wall hematoma which was sustained after a fall. He had a noted drop in hemoglobin and this responded to blood transfusion. Coumadin was held temporarily during admission as initial INR was mildly supratherapeutic. Pain was controlled with pain medication. CT abdomen demonstrated the hematoma with no other significant lesions. Plan is to discharge home today with CBC and INR check on (2 days time). - Discharge Data Discharge Date: 11/06/17 Discharge Disposition: Home, Self-Care 01 Condition: Stable - Patient Instructions Diet: Usual Diet as Tolerated Activity: As Tolerated Other/Special Instructions: Please check CBC and INR on (Two days after discharge) - Discharge Plan *PRESCRIPTION DRUG MONITORING PROGRAM REVIEWED*: Not Applicable *COPY OF PRESCRIPTION DRUG MONITORING REPORT IN PATIENT BURT: Not Applicable Prescriptions/Med Rec: Acetaminophen/oxyCODONE [Percocet 325-5 MG] 1 tab PO Q4H PRN #10 tablet PRN Reason: Pain (Moderate 4-6) Home Medications: Home Meds Aspirin [Nan Chewable Aspirin] 81 mg PO DAILY 02/27/14 [History] Calcium Citrate/Vitamin D3 [Calcium Citrate + D] 1 tab PO BID 02/27/14 [History] Simvastatin [Zocor] 10 mg PO BEDTIME 02/27/14 [History] metFORMIN [Glucophage] 1,000 mg PO BIDM 02/27/14 [History] Docusate Sodium [Colace] 100 mg PO BID PRN 09/22/15 [History] Losartan [Cozaar] 25 mg PO DAILY 03/09/17 [History] Saxagliptin [Onglyza] 5 mg PO DAILY 03/09/17 [History] hydroCHLOROthiazide [Hydrochlorothiazide] 25 mg PO DAILY 03/09/17 [History] Clotrimazole [Clotrimazole 1%] 1 gm PO ASDIRECTED PRN 08/23/17 [History] Insulin Detemir [Levemir] 23 units SQ BEDTIME 08/23/17 [History] Warfarin Sodium [Coumadin] 3.5 mg PO DAILY 08/23/17 [History] Pioglitazone [Actos] 30 mg PO DAILY 11/04/17 [History] Acetaminophen/oxyCODONE [Percocet 325-5 MG] 1 tab PO Q4H PRN #10 tablet [Rx] Forms: ED Department Discharge Referrals: PCP,Unobtain [Primary Care Provider] - - Discharge Summary/Plan Comment DC Time >30 min.: Yes - General Info Date of Service: 11/06/17 Admission Dx/Problem (Free Text: abdominal hematoma Subjective Update: Patient 81-year-old male admitted because of a fall that had led to a abdominal wall hematoma. Continues to have some discomfort on the left side of the abdomen. No constipation. No nausea or vomiting. Ambulating well without any headache or dizziness. No melena, hematochezia. No hematuria. - Review of Systems General: Reports: No Symptoms HEENT: Reports: No Symptoms Pulmonary: Reports: No Symptoms Cardiovascular: Reports: No Symptoms Gastrointestinal: Reports: No Symptoms Genitourinary: Reports: No Symptoms Musculoskeletal: Reports: No Symptoms - Patient Data Vitals - Most Recent: Last Vital Signs Temp 36.5 C 11/06/17 11:11 Pulse 59 L 11/06/17 11:11 Resp 20 11/06/17 11:11 BP 131/60 11/06/17 11:11 Pulse Ox 96 11/06/17 11:11 Weight - Most Recent: 78.245 kg I&O - Last 24 hours: Intake & Output 11/05/17 11/06/17 11/06/17 22:59 06:59 14:59 Intake Total 370 Balance 370 Lab Results - Last 24 hrs: Laboratory Results - last 24 hr 11/05/17 11/05/17 11/05/17 Range/Units 16:56 17:35 21:15 Hgb 9.7 L (14.0-18.0) g/dL Hct 29.7 L (40.0-54.0) % POC Glucose 119 H 169 H (83-110) mg/dl 11/06/17 11/06/17 Range/Units 07:37 11:20 Hgb (14.0-18.0) g/dL Hct (40.0-54.0) % POC Glucose 86 153 H (83-110) mg/dl Med Orders - Current: Current Medications Acetaminophen (Tylenol) 650 mg PO Q4H PRN PRN Reason: Pain (Mild 1-3)/fever Aspirin (Aspirin) 81 mg PO DAILY [facility] Last Admin: 11/06/17 08:40 Dose: 81 mg Calcium Carbonate (Calcium Carbonate/Vitamin D 1250 Mg-200 Unit) 1 tab PO BID [facility] Last Admin: 11/06/17 08:40 Dose: 1 tab Docusate Sodium (Colace) 100 mg PO BID [facility] Last Admin: 11/06/17 08:40 Dose: 100 mg Insulin Detemir (Levemir) 23 unit SUBCUT BEDTIME [facility] Last Admin: 11/05/17 22:01 Dose: 23 units Losartan Potassium (Cozaar) 25 mg PO DAILY [facility] Last Admin: 11/06/17 08:40 Dose: 25 mg [facility] Last Admin: 11/06/17 08:41 Dose: 1,000 mg Morphine Sulfate (Morphine) 2 mg IVPUSH Q2H PRN PRN Reason: Pain (severe 7-10) Pioglitazone [Actos] (30 Mg Own Med) 0 mg PO DAILY [facility] Last Admin: 11/06/17 08:41 Dose: 30 mg Saxagliptin [Onglyza ] 5 Mg Tab Own Med 0 mg PO DAILY [facility] Last Admin: 11/06/17 08:42 Dose: 5 mg Oxycodone/Acetaminophen (Percocet 325-5 Mg) 1 tab PO Q4H PRN PRN Reason: Pain (moderate 4-6) Last Admin: 11/05/17 21:58 Dose: 1 tab Simvastatin (Zocor) 10 mg PO BEDTIME [facility] Last Admin: 11/05/17 21:57 Dose: 10 mg Sodium Chloride (Saline Flush) 10 ml FLUSH ASDIRECTED PRN PRN Reason: Keep Vein Open Last Admin: 11/04/17 19:51 Dose: 10 ml Discontinued Medications Potassium Chloride 10 meq/ (Premix) 100 mls @ 100 mls/hr IV ONETIME ONE Stop: 11/03/17 15:23 Last Admin: 11/03/17 14:38 Dose: 100 mls/hr Sodium Chloride (Normal Saline) 1,000 mls @ 999 mls/hr IV .BOLUS ONE Stop: 11/03/17 15:25 Last Admin: 11/03/17 14:37 Dose: 999 mls/hr Phytonadione 5 mg/ Sodium (Chloride) 50.5 mls @ 100 mls/hr IV NOW ONE Stop: 11/03/17 15:49 Last Admin: 11/03/17 15:30 Dose: 100 mls/hr Iopamidol (Isovue-300 (61%)) 75 ml IVPUSH ONETIME ONE Stop: 11/03/17 14:24 Last Admin: 11/03/17 15:11 Dose: 75 ml Non-Formulary Medication (Cetirizine [Zyrtec]) 10 mg PO DAILY [facility] Oxycodone/Acetaminophen (Percocet 325-5 Mg) 1 tab PO ONETIME ONE Stop: 11/03/17 14:28 Last Admin: 11/03/17 14:41 Dose: 1 tab Pioglitazone HCl (Actos) 30 mg PO DAILY [facility] Potassium Chloride (Klor-Con 10) 40 meq PO ONETIME ONE Stop: 11/03/17 14:27 Last Admin: 11/03/17 14:42 Dose: 40 meq Potassium Chloride (Klor-Con 10) 20 meq PO ONETIME ONE Stop: 11/04/17 08:51 Last Admin: 11/04/17 11:50 Dose: 20 meq Simvastatin (Zocor) 20 mg PO BEDTIME [facility] - Exam General: Reports: Alert, Oriented HEENT: Reports: Pupils Equal, Pupils Reactive Lungs: Reports: Clear to Auscultation Cardiovascular: Reports: Regular Rate, Regular Rhythm GI/Abdominal Exam: Other (tender left flank at hematoma site)
== END 2017-11-06 13:45 | disposition home or self-care (01) | DRG 812 ==
LOC: DL.ED 12:39 → DL.MS 16:16 → UNDOADMIN 16:16 → DL.MS 16:29
PROVIDERS: ADMIT Internal Medicine; ATTEND Internal Medicine
PROC: 30233N1 Transfusion of Nonautologous Red Blood Cells into Peripheral Vein, Percutaneous Approach (ICD-10-PCS; principal; 2017-11-04)
DX: D62 Acute posthemorrhagic anemia (principal); S30.1XXA Contusion of abdominal wall, initial encounter; I48.91 Unspecified atrial fibrillation; E11.649 Type 2 diabetes mellitus with hypoglycemia without coma; D51.9 Vitamin B12 deficiency anemia, unspecified; I10 Essential (primary) hypertension; D69.6 Thrombocytopenia, unspecified; E78.00 Pure hypercholesterolemia, unspecified; H54.7 Unspecified visual loss; R79.1 Abnormal coagulation profile; Z95.3 Presence of xenogenic heart valve; Z79.01 Long term (current) use of anticoagulants; Z79.82 Long term (current) use of aspirin; Z79.899 Other long term (current) drug therapy; Z79.4 Long term (current) use of insulin; W18.30XA Fall on same level, unspecified, initial encounter
CPT/HCPCS: 36415; 36430; 74177; 80048; 81001; 82962; 85014; 85018; 85025; 85610; 86850; 86900; 86901; 86920; 86922; 96365; 96366; 96368; 99285; A9270-GY; J1815-GY; J3430; J3480; J7030; J7050; P9016; Q9967

== ENCOUNTER 2018-03-26 06:15 | Emergency (ER) | payer BC, OTHER ==
[2018-03-26 06:28] VITALS: BP 136/71
--- NOTE | 2018-03-26 06:28 | EDM.PDOC ---
ED HPI GENERAL MEDICAL PROBLEM - General Source of Information: Reports: Patient, EMS, EMS Notes Reviewed, Family, RN, RN Notes Reviewed History Limitations: Reports: Altered Mental Status - History of Present Illness Onset: Today <Christina Burnett - Last Filed: 03/26/18 06:49> <Pastor Graves Roxanne - Last Filed: 03/26/18 07:47> - General Chief Complaint: Neurological Problem Stated Complaint: AMBULANCE-UNKNOWN Time Seen by Provider: 03/26/18 06:20 - History of Present Illness INITIAL COMMENTS - FREE TEXT/NARRATIVE: Pt to ER per [facility] with altered mental status. EMS reports the call was initially for an unresponsive male. When they got to the home, the patient was alert, but confused, disoriented. EMS denies any further deficits upon arrival. EMS reports BS of 161. Glucose upon arrival of ER is 121. (Christina Burnett) - Related Data Allergies Allergy/AdvReac Type Severity Reaction Status Date / Time No Known Allergies Allergy Verified 03/26/18 06:40 Home Meds: Home Meds Aspirin [Nan Chewable Aspirin] 81 mg PO DAILY 02/27/14 [History] Calcium Citrate/Vitamin D3 [Calcium Citrate + D] 1 tab PO BID 02/27/14 [History] metFORMIN [Glucophage] 1,000 mg PO BIDM 02/27/14 [History] Losartan [Cozaar] 25 mg PO DAILY 03/09/17 [History] Saxagliptin [Onglyza] 5 mg PO DAILY 03/09/17 [History] hydroCHLOROthiazide [Hydrochlorothiazide] 25 mg PO DAILY 03/09/17 [History] Insulin Detemir [Levemir] 23 units SQ BEDTIME 08/23/17 [History] Warfarin Sodium [Coumadin] 3.5 mg PO DAILY 08/23/17 [History] Pioglitazone [Actos] 30 mg PO DAILY 11/04/17 [History] Past Medical History HEENT History: Reports: Impaired Vision Cardiovascular History: Reports: Afib, High Cholesterol, Hypertension Respiratory History: Reports: None Gastrointestinal History: Reports: None Genitourinary History: Reports: None Musculoskeletal History: Reports: None Neurological History: Reports: None Psychiatric History: Reports: None Endocrine/Metabolic History: Reports: Diabetes, Type II Hematologic History: Reports: Anemia, B12 Deficiency Immunologic History: Reports: None Oncologic (Cancer) History: Reports: None Dermatologic History: Reports: None - Infectious Disease History Infectious Disease History: Reports: Hepatitis A - Past Surgical History Head Surgeries/Procedures: Reports: None HEENT Surgical History: Reports: Cataract Surgery Other HEENT Surgeries/Procedures: BILATERAL CATARACT SURGERY Cardiovascular Surgical History: Reports: Other (See Below) Other Cardiovascular Surgeries/Procedures: open heart surgery (aortic valve replacement in july 13, 2015). Pig valve Respiratory Surgical History: Reports: None GI Surgical History: Reports: Appendectomy, Colonoscopy, EGD Male Surgical History: Reports: None Endocrine Surgical History: Reports: None Neurological Surgical History: Reports: None Musculoskeletal Surgical History: Reports: None <Christina Burnett - Last Filed: 03/26/18 06:49> Social & Family History - Family History Family Medical History: Noncontributory - Caffeine Use Caffeine Use: Reports: Coffee, Soda - Living Situation & Occupation Living situation: Reports: , with Spouse Occupation: Retired <Christina Burnett Filed: 03/26/18 06:49> ED ROS GENERAL - Review of Systems Review Of Systems: ROS reveals no pertinent complaints other than HPI. <Christina Burnett - Last Filed: 03/26/18 06:49> - Physical Exam Exam: See Below Exam Limited By: Altered Mental Status General Appearance: Alert, WD/WN, No Apparent Distress Eye Exam: Bilateral Eye: EOMI, Normal Inspection, PERRL (2) Ears: Normal External Exam, Hearing Grossly Normal Nose: Normal Inspection Throat/Mouth: Normal Inspection, Normal Lips, No Airway Compromise Head Exam: Atraumatic, Normocephalic Neck: Normal Inspection, Supple, Non-Tender, Full Range of Motion Respiratory/Chest: No Respiratory Distress, Lungs Clear, Normal Breath Sounds, No Accessory Muscle Use, Chest Non-Tender Cardiovascular: Normal Peripheral Pulses, No Edema, No Gallop, No JVD, No Murmur , No Rub, Irregularly Irregular GI/Abdominal: Normal Bowel Sounds, Soft, Non-Tender, No Organomegaly, No Distention, No Abnormal Bruit (Male) Exam: Deferred Rectal (Males) Exam: Deferred Neuro Exam (Abbreviated): Alert, CN II-XII Intact, Normal Cognition, Normal Gait , Normal Reflexes, No Motor/Sensory Deficits, Disoriented, Memory Loss Recent Events Back Exam: Normal Inspection, Full Range of Motion Extremities: Normal Inspection, Normal Range of Motion, Non-Tender, No Pedal Edema, Normal Capillary Refill Psychiatric: Normal Affect, Normal Mood Skin Exam: Warm, Dry, Intact, Normal Color, No Rash <Christina Burnett - Last Filed: 03/26/18 06:49> Course <Christina Burnett - Last Filed: 03/26/18 06:49> <Pastor Graves - Last Filed: 03/26/18 07:47> - Vital Signs Last Recorded V/S: Last Vital Signs Temp 36.3 C 03/26/18 06:27 Pulse 76 03/26/18 06:27 Resp 18 03/26/18 06:27 BP 136/71 03/26/18 06:27 Pulse Ox 97 03/26/18 06:29 - Orders/Labs/Meds Orders: Active Orders 24 hr Category Date Time Status Head wo Cont [CT] Stat Exams 03/26/18 06:19 Ordered UA W/MICROSCOPIC [URIN] Stat Lab 03/26/18 07:25 Results Labs: Laboratory Tests 03/26/18 03/26/18 03/26/18 Range/Units 06:15 06:59 06:59 WBC 6.1 (5.0-10.0) 10^3/uL RBC 4.55 L (4.6-6.2) 10^6/uL Hgb 13.2 L D (14.0-18.0) g/dL Hct 38.5 L (40.0-54.0) % MCV 84.6 (80-100) fL MCH 29.0 (27.0-34.0) pg MCHC 34.3 (33.0-35.0) g/dL Plt Count 114 L (150-450) 10^3/uL Neut % (Auto) 73.8 (42.2-75.2) % Lymph % (Auto) 14.8 L (20.5-50.1) % [place] % (Auto) 8.1 H (2-8) % Eos % (Auto) 3.0 (1.0-3.0) % Baso % (Auto) 0.3 (0.0-1.0) % PT (9.0-12.0) SEC INR (0.9-1.2) Sodium 133 L (135-145) mmol/L Potassium 3.4 L (3.6-5.0) mmol/L Chloride 98 L (101-111) mmol/L Carbon Dioxide 23.0 (21.0-31.0) mmol/L Anion Gap 15.4 BUN 14 (7-18) mg/dL Creatinine 0.8 (0.6-1.3) mg/dL Est Cr Clr Drug Dosing 68.85 mL/min Estimated GFR (MDRD) > 60 BUN/Creatinine Ratio 17.50 Glucose 137 H (74-105) mg/dL POC Glucose 121 H (83-110) mg/dl Calcium 8.5 (8.4-10.2) mg/dl Total Bilirubin 0.8 (0.2-1.0) mg/dL AST 32 (10-42) IU/L ALT 16 (10-60) IU/L Alkaline Phosphatase 50 (42-121) IU/L Troponin I < 0.02 (0.00-0.02) ng/ml Total Protein 6.4 L (6.7-8.2) g/dl Albumin 3.6 (3.2-5.5) g/dl Globulin 2.8 Albumin/Globulin Ratio 1.29 Urine Color (YELLOW) Urine Appearance (CLEAR) Urine pH (5.0-9.0) Ur Specific [place] (1.005-1.030) Urine Protein (NEGATIVE) Urine Glucose (UA) (NEGATIVE) Urine Ketones (NEGATIVE) Urine Occult Blood (NEGATIVE) Urine Nitrite (NEGATIVE) Urine Bilirubin (NEGATIVE) Urine Urobilinogen (0.2-1.0) mg/dL Ur Leukocyte Esterase (NEGATIVE) Urine Opiates Screen (NEGATIVE) Ur Oxycodone Screen (NEGATIVE) Urine Methadone Screen (NEGATIVE) Ur Barbiturates Screen (NEGATIVE) U Tricyclic Antidepress (NEGATIVE) Ur Phencyclidine Scrn (NEGATIVE) Ur Amphetamine Screen (NEGATIVE) U Methamphetamines Scrn (NEGATIVE) Urine MDMA Screen (NEGATIVE) U Benzodiazepines Scrn (NEGATIVE) Urine Cocaine Screen (NEGATIVE) U Marijuana (THC) Screen (NEGATIVE) Ethyl Alcohol mg/dL 03/26/18 03/26/18 03/26/18 Range/Units 06:59 06:59 07:25 WBC (5.0-10.0) 10^3/uL RBC (4.6-6.2) 10^6/uL Hgb (14.0-18.0) g/dL Hct (40.0-54.0) % MCV (80-100) fL MCH (27.0-34.0) pg MCHC (33.0-35.0) g/dL Plt Count (150-450) 10^3/uL Neut % (Auto) (42.2-75.2) % Lymph % (Auto) (20.5-50.1) % [place] % (Auto) (2-8) % Eos % (Auto) (1.0-3.0) % Baso % (Auto) (0.0-1.0) % PT 28.3 H D (9.0-12.0) SEC INR 2.9 H (0.9-1.2) Sodium (135-145) mmol/L Potassium (3.6-5.0) mmol/L Chloride (101-111) mmol/L Carbon Dioxide (21.0-31.0) mmol/L Anion Gap BUN (7-18) mg/dL Creatinine (0.6-1.3) mg/dL Est Cr Clr Drug Dosing mL/min Estimated GFR (MDRD) BUN/Creatinine Ratio Glucose (74-105) mg/dL POC Glucose (83-110) mg/dl Calcium (8.4-10.2) mg/dl Total Bilirubin (0.2-1.0) mg/dL AST (10-42) IU/L ALT (10-60) IU/L Alkaline Phosphatase (42-121) IU/L Troponin I (0.00-0.02) ng/ml Total Protein (6.7-8.2) g/dl Albumin (3.2-5.5) g/dl Globulin Albumin/Globulin Ratio Urine Color Yellow (YELLOW) Urine Appearance Clear (CLEAR) Urine pH 7.0 (5.0-9.0) Ur Specific [place] 1.015 (1.005-1.030) Urine Protein Trace H (NEGATIVE) Urine Glucose (UA) 100 H (NEGATIVE) Urine Ketones Negative (NEGATIVE) Urine Occult Blood Negative (NEGATIVE) Urine Nitrite Negative (NEGATIVE) Urine Bilirubin Negative (NEGATIVE) Urine Urobilinogen 0.2 (0.2-1.0) mg/dL Ur Leukocyte Esterase Negative (NEGATIVE) Urine Opiates Screen (NEGATIVE) Ur Oxycodone Screen (NEGATIVE) Urine Methadone Screen (NEGATIVE) Ur Barbiturates Screen (NEGATIVE) U Tricyclic Antidepress (NEGATIVE) Ur Phencyclidine Scrn (NEGATIVE) Ur Amphetamine Screen (NEGATIVE) U Methamphetamines Scrn (NEGATIVE) Urine MDMA Screen (NEGATIVE) U Benzodiazepines Scrn (NEGATIVE) Urine Cocaine Screen (NEGATIVE) U Marijuana (THC) Screen (NEGATIVE) Ethyl Alcohol < 5 mg/dL 03/26/18 Range/Units 07:25 WBC (5.0-10.0) 10^3/uL RBC (4.6-6.2) 10^6/uL Hgb (14.0-18.0) g/dL Hct (40.0-54.0) % MCV (80-100) fL MCH (27.0-34.0) pg MCHC (33.0-35.0) g/dL Plt Count (150-450) 10^3/uL Neut % (Auto) (42.2-75.2) % Lymph % (Auto) (20.5-50.1) % [place] % (Auto) (2-8) % Eos % (Auto) (1.0-3.0) % Baso % (Auto) (0.0-1.0) % PT (9.0-12.0) SEC INR (0.9-1.2) Sodium (135-145) mmol/L Potassium (3.6-5.0) mmol/L Chloride (101-111) mmol/L Carbon Dioxide (21.0-31.0) mmol/L Anion Gap BUN (7-18) mg/dL Creatinine (0.6-1.3) mg/dL Est Cr Clr Drug Dosing mL/min Estimated GFR (MDRD) BUN/Creatinine Ratio Glucose (74-105) mg/dL POC Glucose (83-110) mg/dl Calcium (8.4-10.2) mg/dl Total Bilirubin (0.2-1.0) mg/dL AST (10-42) IU/L ALT (10-60) IU/L Alkaline Phosphatase (42-121) IU/L Troponin I (0.00-0.02) ng/ml Total Protein (6.7-8.2) g/dl Albumin (3.2-5.5) g/dl Globulin Albumin/Globulin Ratio Urine Color (YELLOW) Urine Appearance (CLEAR) Urine pH (5.0-9.0) Ur Specific [place] (1.005-1.030) Urine Protein (NEGATIVE) Urine Glucose (UA) (NEGATIVE) Urine Ketones (NEGATIVE) Urine Occult Blood (NEGATIVE) Urine Nitrite (NEGATIVE) Urine Bilirubin (NEGATIVE) Urine Urobilinogen (0.2-1.0) mg/dL Ur Leukocyte Esterase (NEGATIVE) Urine Opiates Screen Negative (NEGATIVE) Ur Oxycodone Screen Negative (NEGATIVE) Urine Methadone Screen Negative (NEGATIVE) Ur Barbiturates Screen Negative (NEGATIVE) U Tricyclic Antidepress Negative (NEGATIVE) Ur Phencyclidine Scrn Negative (NEGATIVE) Ur Amphetamine Screen Negative (NEGATIVE) U Methamphetamines Scrn Negative (NEGATIVE) Urine MDMA Screen Negative (NEGATIVE) U Benzodiazepines Scrn Negative (NEGATIVE) Urine Cocaine Screen Negative (NEGATIVE) U Marijuana (THC) Screen Negative (NEGATIVE) Ethyl Alcohol mg/dL - Radiology Interpretation Free Text/Narrative:: Head CT wo contrast: FINDINGS: Brain: Normal. No hemorrhage. No significant white matter disease. No edema. Ventricles: Normal. No ventriculomegaly. Bones/joints: Normal. No acute fracture. Sinuses: Normal as visualized. No acute sinusitis. Mastoid air cells: Normal as visualized. No mastoid effusion. Soft tissues: Normal. IMPRESSION: No acute intracranial abnormality. ASSESSMENT: ASPECTS ([place] Stroke Program Early CT Score) is 10 Thank you for allowing us to participate in the care of your patient. Dictated and Authenticated by: Samuel Joshi MD 03/26/2018 6:29 AM Central Time ([place] & [place]) See Rad report (Christina Burnett) - Re-Assessments/Exams Free Text/Narrative Re-Assessment/Exam: 03/26/18 07:42 Patient care taken over at shift change. The patient was alert and oriented during follow-up examination. The patient reports that he did stop using his CPAP machine, but did not have a good reason for it. The patient agreed to start using his CPAP again. (Pastor Graves) Departure <Christina Burnett - Last Filed: 03/26/18 06:49> - Departure Time of Disposition: 07:44 Condition: Fair - Discharge Information *PRESCRIPTION DRUG MONITORING PROGRAM REVIEWED*: Not Applicable *COPY OF PRESCRIPTION DRUG MONITORING REPORT IN PATIENT BURT: Not Applicable <Pastor Graves - Last Filed: 03/26/18 07:47> - Departure Disposition: Home, Self-Care 01 Clinical Impression: Transient alteration of awareness - Discharge Information Forms: ED Department Discharge Care Plan Goals: The patient and family were advised of the examination, CT, lab and EKG results during the visit. The patient was encouraged to use his CPAP nightly due to possible sleep apnea with intermittent hypoxic episodes. If the patient has any additional symptoms or concerns, the patient was encouraged to either return to the emergency department or visit his primary care facility.
[2018-03-26 07:27] LABS: ANION GAP 15.4; CHLORIDE,CL 98 mmol/L (101-111); SODIUM,NA 133 mmol/L (135-145)
== END 2018-03-26 07:49 | disposition home or self-care (01) ==
LOC: DL.ED 06:15
DX: R40.4 Transient alteration of awareness (principal); I10 Essential (primary) hypertension; E11.9 Type 2 diabetes mellitus without complications; E78.00 Pure hypercholesterolemia, unspecified; I48.91 Unspecified atrial fibrillation; Z79.82 Long term (current) use of aspirin; Z79.4 Long term (current) use of insulin; Z79.01 Long term (current) use of anticoagulants; Z79.899 Other long term (current) drug therapy
CPT/HCPCS: 36415; 70450; 80053; 80305; 81001; 82962; 84484; 85025; 85610; 99285; G0480

== ENCOUNTER 2018-08-20 23:18 | Observation (INO) | payer OTHER ==
[2018-08-21 00:10] LABS: ANION GAP 14.9; CHLORIDE,CL 99 mmol/L (101-111); SODIUM,NA 135 mmol/L (135-145)
[2018-08-21] MEDS ORDERED: Potassium Chloride 10 MEQ Tab.ER PO ONE ×4 (00:13→03:30)
[2018-08-21] MEDS ORDERED: 50% Dextrose in Water 50 ML Syringe IVPUSH ONE (00:24)
--- NOTE | 2018-08-21 00:49 | EDM.PDOC ---
ED HPI GENERAL MEDICAL PROBLEM - General Chief Complaint: Diabetic Complaint Stated Complaint: AMBULANCE-UNKNOWN Time Seen by Provider: 08/20/18 23:35 Source of Information: Reports: Patient, EMS, Family, RN History Limitations: Reports: No Limitations - History of Present Illness INITIAL COMMENTS - FREE TEXT/NARRATIVE: ED via [facility] with report of low blood sugar. Reported taking insulin and not eating snack as usual. noted "3 breaths" that sounded funny and was clammy so called 911. EMS initial BS 33, gave D50, juice and sandwich. Initial ED 85 recheck 54 and 61 after sandwich fruit and milk. Patient denies complaint . - Related Data Allergies Allergy/AdvReac Type Severity Reaction Status Date / Time No Known Allergies Allergy Verified 08/20/18 23:43 Home Meds: Home Meds Aspirin [Nan Chewable Aspirin] 81 mg PO DAILY 02/27/14 [History] Calcium Citrate/Vitamin D3 [Calcium Citrate + D] 1 tab PO BID 02/27/14 [History] metFORMIN [Glucophage] 1,000 mg PO BIDM 02/27/14 [History] Losartan [Cozaar] 25 mg PO DAILY 03/09/17 [History] Saxagliptin [Onglyza] 5 mg PO DAILY 03/09/17 [History] hydroCHLOROthiazide [Hydrochlorothiazide] 25 mg PO DAILY 03/09/17 [History] Insulin Detemir [Levemir] 23 units SQ BEDTIME 08/23/17 [History] Warfarin Sodium [Coumadin] 3.5 mg PO DAILY 08/23/17 [History] Dextrose [Glucose] 16 gm PO ASDIRECTED 08/20/18 [History] Pioglitazone HCl 45 mg PO DAILY 08/20/18 [History] Warfarin Sodium [Coumadin] 0.5 mg PO DAILY 08/20/18 [History] Past Medical History HEENT History: Reports: Impaired Vision Cardiovascular History: Reports: Afib, High Cholesterol, Hypertension Respiratory History: Reports: None Gastrointestinal History: Reports: None Genitourinary History: Reports: None Musculoskeletal History: Reports: None Neurological History: Reports: None Psychiatric History: Reports: None Endocrine/Metabolic History: Reports: Diabetes, Type II Hematologic History: Reports: Anemia, B12 Deficiency Immunologic History: Reports: None Oncologic (Cancer) History: Reports: None Dermatologic History: Reports: None - Infectious Disease History Infectious Disease History: Reports: Hepatitis A - Past Surgical History Head Surgeries/Procedures: Reports: None HEENT Surgical History: Reports: Cataract Surgery Other HEENT Surgeries/Procedures: BILATERAL CATARACT SURGERY Cardiovascular Surgical History: Reports: Other (See Below) Other Cardiovascular Surgeries/Procedures: open heart surgery (aortic valve replacement in july 13, 2015). Pig valve Respiratory Surgical History: Reports: None GI Surgical History: Reports: Appendectomy, Colonoscopy, EGD Male Surgical History: Reports: None Endocrine Surgical History: Reports: None Neurological Surgical History: Reports: None Musculoskeletal Surgical History: Reports: None Social & Family History - Family History Family Medical History: Noncontributory - Tobacco Use Smoking Status *Q: Never Smoker Second Hand Smoke Exposure: No - Caffeine Use Caffeine Use: Reports: Coffee - Recreational Drug Use Recreational Drug Use: No - Living Situation & Occupation Living situation: Reports: , with Spouse Occupation: Retired ED ROS GENERAL - Review of Systems Review Of Systems: See Below Constitutional: Denies: Fever, Chills, Weakness HEENT: Reports: No Symptoms Respiratory: Reports: No Symptoms Cardiovascular: Reports: No Symptoms Endocrine: Reports: Low Glucose GI/Abdominal: Reports: No Symptoms Musculoskeletal: Reports: No Symptoms Skin: Reports: No Symptoms Neurological: Reports: No Symptoms ED EXAM GENERAL NO PERIP PULSE - Physical Exam Exam: See Below Exam Limited By: No Limitations General Appearance: Alert, No Apparent Distress Eye Exam: Bilateral Eye: EOMI Ears: Normal External Exam Nose: Normal Inspection Throat/Mouth: Normal Inspection, Normal Lips, Normal Voice, No Airway Compromise Head: Atraumatic, Normocephalic Neck: Normal Inspection, Full Range of Motion Respiratory/Chest: No Respiratory Distress, Lungs Clear, Normal Breath Sounds Cardiovascular: Normal Peripheral Pulses, Regular Rate, Rhythm GI/Abdominal: Normal Bowel Sounds, Soft Neurological: Alert, Oriented, Normal Cognition, No Motor/Sensory Deficits Psychiatric: Normal Affect Skin Exam: Warm, Dry, Intact Course - Vital Signs Last Recorded V/S: Last Vital Signs Temp 97.0 F 08/20/18 23:23 Pulse 70 08/20/18 23:23 Resp 16 08/20/18 23:23 BP 155/52 H 08/20/18 23:23 Pulse Ox 98 08/20/18 23:23 - Orders/Labs/Meds Orders: Active Orders 24 hr Category Date Time Status Glucose [Blood Glucose Check, Bedside] [RC] ONETIME Care 08/21/18 00:13 Active Labs: Laboratory Tests 08/20/18 08/20/18 08/20/18 Range/Units 23:24 23:44 23:44 WBC 11.4 H (5.0-10.0) 10^3/uL RBC 4.97 (4.6-6.2) 10^6/uL Hgb 13.9 L (14.0-18.0) g/dL Hct 41.3 (40.0-54.0) % MCV 83.1 (80-100) fL MCH 28.0 (27.0-34.0) pg MCHC 33.7 (33.0-35.0) g/dL Plt Count 155 (150-450) 10^3/uL Neut % (Auto) 82.4 H (42.2-75.2) % Lymph % (Auto) 9.4 L (20.5-50.1) % [place] % (Auto) 7.2 (2-8) % Eos % (Auto) 0.8 L (1.0-3.0) % Baso % (Auto) 0.2 (0.0-1.0) % PT 25.2 H (9.0-12.0) SEC INR 2.6 H (0.9-1.2) Sodium (135-145) mmol/L Potassium (3.6-5.0) mmol/L Chloride (101-111) mmol/L Carbon Dioxide (21.0-31.0) mmol/L Anion Gap BUN (7-18) mg/dL Creatinine (0.6-1.3) mg/dL Est Cr Clr Drug Dosing mL/min Estimated GFR (MDRD) BUN/Creatinine Ratio Glucose (74-105) mg/dL POC Glucose 85 (83-110) mg/dl Calcium (8.4-10.2) mg/dl Total Bilirubin (0.2-1.0) mg/dL AST (10-42) IU/L ALT (10-60) IU/L Alkaline Phosphatase (42-121) IU/L Total Protein (6.7-8.2) g/dl Albumin (3.2-5.5) g/dl Globulin Albumin/Globulin Ratio 08/20/18 08/21/18 Range/Units 23:44 00:19 WBC (5.0-10.0) 10^3/uL RBC (4.6-6.2) 10^6/uL Hgb (14.0-18.0) g/dL Hct (40.0-54.0) % MCV (80-100) fL MCH (27.0-34.0) pg MCHC (33.0-35.0) g/dL Plt Count (150-450) 10^3/uL Neut % (Auto) (42.2-75.2) % Lymph % (Auto) (20.5-50.1) % [place] % (Auto) (2-8) % Eos % (Auto) (1.0-3.0) % Baso % (Auto) (0.0-1.0) % PT (9.0-12.0) SEC INR (0.9-1.2) Sodium 135 (135-145) mmol/L Potassium 2.9 L (3.6-5.0) mmol/L Chloride 99 L (101-111) mmol/L Carbon Dioxide 24.0 (21.0-31.0) mmol/L Anion Gap 14.9 BUN 16 (7-18) mg/dL Creatinine 1.0 (0.6-1.3) mg/dL Est Cr Clr Drug Dosing 53.17 mL/min Estimated GFR (MDRD) > 60 BUN/Creatinine Ratio 16.00 Glucose 54 L (74-105) mg/dL POC Glucose 61 L (83-110) mg/dl Calcium 9.0 (8.4-10.2) mg/dl Total Bilirubin 0.6 (0.2-1.0) mg/dL AST 34 (10-42) IU/L ALT 17 (10-60) IU/L Alkaline Phosphatase 69 (42-121) IU/L Total Protein 6.9 (6.7-8.2) g/dl Albumin 4.1 (3.2-5.5) g/dl Globulin 2.8 Albumin/Globulin Ratio 1.46 Meds: Medications Discontinued Medications Generic Name Dose Route Start Last Admin Trade Name Freq PRN Reason Stop Dose Admin Dextrose/Water 50 ml 08/21/18 00:24 08/21/18 00:28 Dextrose 50% In Water IVPUSH 08/21/18 00:25 50 ml ONETIME ONE Administration Potassium Chloride 20 meq 08/21/18 00:13 08/21/18 00:16 Klor-Con 10 PO 08/21/18 00:14 20 meq ONETIME ONE Administration - Re-Assessments/Exams Free Text/Narrative Re-Assessment/Exam: 08/21/18 00:50 Intermittent light dozing arouses easily to voice. Up at bedside, gait steady. VSS. Dr Batista accepting patient for further management hypoglycemia Departure - Departure Time of Disposition: 00:51 Disposition: Home, Self-Care 01 Condition: Good Clinical Impression: Hypoglycemia, Anticoagulated on warfarin - Discharge Information *PRESCRIPTION DRUG MONITORING PROGRAM REVIEWED*: No *COPY OF PRESCRIPTION DRUG MONITORING REPORT IN PATIENT BURT: No - My Orders Last 24 Hours: My Active Orders 08/21/18 00:13 Glucose [Blood Glucose Check, Bedside] [RC] ONETIME - Assessment/Plan Last 24 Hours: My Active Orders 08/21/18 00:13 Glucose [Blood Glucose Check, Bedside] [RC] ONETIME
[2018-08-21] MEDS ORDERED: 50% Dextrose in Water 50 ML Syringe IVPUSH PRN (02:06)
[2018-08-21] MEDS ORDERED: Docusate Sodium 100 MG Cap PO PRN (02:11)
[2018-08-21] MEDS ORDERED: Acetaminophen 325 MG Tab PO PRN (02:11)
[2018-08-21] MEDS ORDERED: Sodium Chloride 0.9% 10 ML Syringe FLUSH PRN (02:11)
[2018-08-21] MEDS ORDERED: Temazepam 15 MG Cap PO PRN (02:11)
[2018-08-21] MEDS ORDERED: Dextrose 5%-0.9% NaCl with KCl 1,000 ML IV SCH (02:15)
--- NOTE | 2018-08-21 02:19 | PCM.HP ---
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 He was reported to skip and evening meal and was later seen with the cold sweats , confusion, different breathing. When blood sugar was checked intact was around 35. Following oral intake and D50 to blood sugar repeated it was low. - Related Data Allergies/Adverse Reactions: Allergies Allergy/AdvReac Type Severity Reaction Status Date / Time No Known Allergies Allergy Verified 08/21/18 01:03 Home Medications: Home Meds Aspirin [Nan Chewable Aspirin] 81 mg PO DAILY 02/27/14 [History] Calcium Citrate/Vitamin D3 [Calcium Citrate + D] 1 tab PO BID 02/27/14 [History] metFORMIN [Glucophage] 1,000 mg PO BIDM 02/27/14 [History] Losartan [Cozaar] 25 mg PO DAILY 03/09/17 [History] Saxagliptin [Onglyza] 5 mg PO DAILY 03/09/17 [History] hydroCHLOROthiazide [Hydrochlorothiazide] 25 mg PO DAILY 03/09/17 [History] Insulin Detemir [Levemir] 23 units SQ BEDTIME 08/23/17 [History] Warfarin Sodium [Coumadin] 3.5 mg PO DAILY 08/23/17 [History] Dextrose [Glucose] 16 gm PO ASDIRECTED 08/20/18 [History] Pioglitazone HCl 45 mg PO DAILY 08/20/18 [History] Warfarin Sodium [Coumadin] 0.5 mg PO DAILY 08/20/18 [History] Past Medical History HEENT History: Reports: Impaired Vision Cardiovascular History: Reports: Afib, High Cholesterol, Hypertension Respiratory History: Reports: None Gastrointestinal History: Reports: None Genitourinary History: Reports: None Musculoskeletal History: Reports: None Neurological History: Reports: None Psychiatric History: Reports: None Endocrine/Metabolic History: Reports: Diabetes, Type II Hematologic History: Reports: Anemia, B12 Deficiency Immunologic History: Reports: None Oncologic (Cancer) History: Reports: None Dermatologic History: Reports: None - Infectious Disease History Infectious Disease History: Reports: Hepatitis A - Past Surgical History Head Surgeries/Procedures: Reports: None HEENT Surgical History: Reports: Cataract Surgery Other HEENT Surgeries/Procedures: BILATERAL CATARACT SURGERY Cardiovascular Surgical History: Reports: Other (See Below) Other Cardiovascular Surgeries/Procedures: open heart surgery (aortic valve replacement in july 13, 2015). Pig valve Respiratory Surgical History: Reports: None GI Surgical History: Reports: Appendectomy, Colonoscopy, EGD Male Surgical History: Reports: None Endocrine Surgical History: Reports: None Neurological Surgical History: Reports: None Musculoskeletal Surgical History: Reports: None Social & Family History - Family History Family Medical History: Noncontributory - Tobacco Use Smoking Status *Q: Former Smoker Years of Tobacco use: 25 Packs/Tins Daily: 1 Used Tobacco, but Quit: Yes Month/Year Tobacco Last Used: Second Hand Smoke Exposure: No - Caffeine Use Caffeine Use: Reports: None - Recreational Drug Use Recreational Drug Use: No - Living Situation & Occupation Living situation: Reports: , with Spouse Occupation: Retired H&P Review of Systems - Review of Systems: Review Of Systems: See Below General: Denies: Fever Pulmonary: Denies: Shortness of Breath Cardiovascular: Denies: Chest Pain Gastrointestinal: Denies: Abdominal Pain Genitourinary: Denies: Dysuria Psychiatric: Reports: Confusion Exam - Exam Exam: See Below - Vital Signs Vital Signs: Last Vital Signs Temp 35.6 C 08/21/18 00:53 Pulse 69 08/21/18 00:53 Resp 16 08/21/18 00:53 BP 163/71 H 08/21/18 00:53 Pulse Ox 99 08/21/18 00:53 Weight: 74.752 kg - Exam General: Other (Now sleepy, earlier reported as mild confusion) Lungs: Clear to Auscultation Cardiovascular: Regular Rate, Regular Rhythm GI/Abdominal Exam: Normal Bowel Sounds, Soft, Non-Tender Extremities: No Pedal Edema Skin: Warm, Dry - Patient Data Lab Results Last 24 hrs: Laboratory Results - last 24 hr 08/20/18 08/20/18 08/20/18 Range/Units 23:24 23:44 23:44 WBC 11.4 H (5.0-10.0) 10^3/uL RBC 4.97 (4.6-6.2) 10^6/uL Hgb 13.9 L (14.0-18.0) g/dL Hct 41.3 (40.0-54.0) % MCV 83.1 (80-100) fL MCH 28.0 (27.0-34.0) pg MCHC 33.7 (33.0-35.0) g/dL Plt Count 155 (150-450) 10^3/uL Neut % (Auto) 82.4 H (42.2-75.2) % Lymph % (Auto) 9.4 L (20.5-50.1) % [place] % (Auto) 7.2 (2-8) % Eos % (Auto) 0.8 L (1.0-3.0) % Baso % (Auto) 0.2 (0.0-1.0) % PT 25.2 H (9.0-12.0) SEC INR 2.6 H (0.9-1.2) Sodium (135-145) mmol/L Potassium (3.6-5.0) mmol/L Chloride (101-111) mmol/L Carbon Dioxide (21.0-31.0) mmol/L Anion Gap BUN (7-18) mg/dL Creatinine (0.6-1.3) mg/dL Est Cr Clr Drug Dosing mL/min Estimated GFR (MDRD) BUN/Creatinine Ratio Glucose (74-105) mg/dL POC Glucose 85 (83-110) mg/dl Calcium (8.4-10.2) mg/dl Total Bilirubin (0.2-1.0) mg/dL AST (10-42) IU/L ALT (10-60) IU/L Alkaline Phosphatase (42-121) IU/L Total Protein (6.7-8.2) g/dl Albumin (3.2-5.5) g/dl Globulin Albumin/Globulin Ratio 08/20/18 08/21/18 08/21/18 Range/Units 23:44 00:19 00:50 WBC (5.0-10.0) 10^3/uL RBC (4.6-6.2) 10^6/uL Hgb (14.0-18.0) g/dL Hct (40.0-54.0) % MCV (80-100) fL MCH (27.0-34.0) pg MCHC (33.0-35.0) g/dL Plt Count (150-450) 10^3/uL Neut % (Auto) (42.2-75.2) % Lymph % (Auto) (20.5-50.1) % [place] % (Auto) (2-8) % Eos % (Auto) (1.0-3.0) % Baso % (Auto) (0.0-1.0) % PT (9.0-12.0) SEC INR (0.9-1.2) Sodium 135 (135-145) mmol/L Potassium 2.9 L (3.6-5.0) mmol/L Chloride 99 L (101-111) mmol/L Carbon Dioxide 24.0 (21.0-31.0) mmol/L Anion Gap 14.9 BUN 16 (7-18) mg/dL Creatinine 1.0 (0.6-1.3) mg/dL Est Cr Clr Drug Dosing 53.17 mL/min Estimated GFR (MDRD) > 60 BUN/Creatinine Ratio 16.00 Glucose 54 L (74-105) mg/dL POC Glucose 61 L 224 H (83-110) mg/dl Calcium 9.0 (8.4-10.2) mg/dl Total Bilirubin 0.6 (0.2-1.0) mg/dL AST 34 (10-42) IU/L ALT 17 (10-60) IU/L Alkaline Phosphatase 69 (42-121) IU/L Total Protein 6.9 (6.7-8.2) g/dl Albumin 4.1 (3.2-5.5) g/dl Globulin 2.8 Albumin/Globulin Ratio 1.46 Result Diagrams: 08/20/18 23:44 08/20/18 23:44 - Problem List (1) Anticoagulated on warfarin SNOMED Code(s): 26785989, 183303590, 860349999 ICD Code: Z79.01 - 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 DIRECTED Care 08/21/18 02:13 Ordered Up With Assistance [RC] ASDIRECTED Care 08/21/18 02:11 Ordered VTE/DVT Education [RC] PER UNIT ROUTINE Care 08/21/18 02:11 Ordered Vital Signs [RC] Q4H Care 08/21/18 02:11 Ordered Consistent Carbohydrate Diet [DIET] Diet 08/21/18 Breakfast Ordered BASIC METABOLIC PANEL,BMP [CHEM] AM Lab 08/21/18 05:11 Ordered BASIC METABOLIC PANEL,BMP [CHEM] AM Lab 08/22/18 05:11 Ordered CBC WITH AUTO DIFF [HEME] AM Lab 08/21/18 05:11 Ordered CBC WITH AUTO DIFF [HEME] AM Lab 08/22/18 05:11 Ordered INR,PT,PROTHROMBIN TIME [COAG] AM Lab 08/21/18 05:11 Ordered INR,PT,PROTHROMBIN TIME [COAG] AM Lab 08/22/18 05:11 Ordered MAGNESIUM [CHEM] AM Lab 08/21/18 05:11 Ordered PHOSPHORUS [CHEM] AM Lab 08/21/18 05:11 Ordered Acetaminophen [Tylenol] Med 08/21/18 02:11 Ordered 650 mg PO Q4H PRN Aspirin Med 08/21/18 09:00 Ordered 81 mg PO DAILY Dextrose 5%-Normal Saline with KCl 20 mEq @ 75 mL/Hr ( Med 08/21/18 02:15 Ordered 1000 mL) Dextrose 5%-0.9% NaCl with KCl [D5 NS with 20 mEq KCl] 1,000 ml IV ASDIRECTED Dextrose 50% in Water Med 08/21/18 02:06 Ordered 50 ml IVPUSH .Q1H PRN Docusate Sodium [Colace] Med 08/21/18 02:11 Ordered 100 mg PO BID PRN Losartan [Cozaar] Med 08/21/18 09:00 Ordered 25 mg PO DAILY Potassium Chloride [Klor-Con 10] Med 08/21/18 02:07 Once 20 meq PO ONETIME ONE Sodium Chloride 0.9% [Saline Flush] Med 08/21/18 02:11 Ordered 10 ml FLUSH ASDIRECTED PRN Temazepam [Restoril] Med 08/21/18 02:11 Ordered 15 mg PO BEDTIME PRN hydroCHLOROthiazide Med 08/21/18 09:00 Ordered 25 mg PO DAILY Antiembolic Hose [OM.PC] Per Unit Routine Oth 08/21/18 02:12 Ordered Peripheral IV Insertion Adult [OM.PC] Routine Oth 08/21/18 02:11 Ordered Resuscitation Status Routine Resus Stat 08/21/18 02:11 Ordered Medication Orders Acetaminophen (Tylenol) 650 mg PO Q4H PRN PRN Reason: Pain (Mild 1-3)/fever Aspirin (Aspirin) 81 mg PO DAILY HENRI Dextrose/Water (Dextrose 50% In Water) 50 ml IVPUSH .Q1H PRN PRN Reason: glucose < 100 Docusate Sodium (Colace) 100 mg PO BID PRN PRN Reason: Constipation Hydrochlorothiazide (Hydrochlorothiazide) 25 mg PO DAILY HENRI Potassium Chloride/Dextrose/Sod Cl (D5 Ns With 20 Meq Kcl) 1,000 mls @ 75 mls/ hr IV ASDIRECTED HENRI Losartan Potassium (Cozaar) 25 mg PO DAILY HENRI Potassium Chloride (Klor-Con 10) 20 meq PO ONETIME ONE Stop: 08/21/18 02:08 Sodium Chloride (Saline Flush) 10 ml FLUSH ASDIRECTED PRN PRN Reason: Keep Vein Open Temazepam (Restoril) 15 mg PO BEDTIME PRN PRN Reason: Sleep Assessment/Plan Comment:: 82-year-old gentleman presented with hypoglycemia despite treatment with D50 and oral food. Hypoglycemia We will check blood sugar every hour We'll give dextrose as needed Start D5 IV fluid Diabetes For now hold metformin, pioglitazone, subsequently obtained, Levemir Hypo-kalemia We'll replace and recheck Hypertension Continue Cozaar A. fib Continue Coumadin
[2018-08-21 07:01] LABS: ANION GAP 12.3; CHLORIDE,CL 102 mmol/L (101-111); SODIUM,NA 134 mmol/L (135-145)
[2018-08-21] MEDS ORDERED: Losartan 25 MG Tab PO SCH (09:00)
[2018-08-21] MEDS ORDERED: Hydrochlorothiazide 25 MG Tab PO SCH (09:00)
[2018-08-21] MEDS ORDERED: Aspirin 81 MG Tab.Chew PO SCH (09:00)
[2018-08-21 13:24] VITALS: BP 121/60
--- NOTE | 2018-08-21 15:22 | PCM.DCSUM1 ---
Discharge Summary - Hospital Course Free Text/Narrative:: 82-year-old with a history of diabetes. On multiple oral medications along with Lantus. The patient presented with hypoglycemia. The patient says that he was wondering last night if he had taken the evening Lantus twice. According to the patient's he took it only once. The patient was admitted and was treated with the dextrose IV. Subsequently even after discontinuation of the D5 IV fluid the patient's blood sugars remained stable. He was able to eat and drink well. He will be discharged with the lower dose of Lantus. He will follow-up with his primary care physician to adjust medications. Diagnosis: Stroke: No - Discharge Data Discharge Date: 08/21/18 Discharge Disposition: Home, Self-Care 01 Condition: Good - Discharge Diagnosis/Problem(s) (1) Anticoagulated on warfarin SNOMED Code(s): 30455956, 721359602, 718862412 ICD Code: Z79.01 - HEALTH INFORMATICS SPECIALIST (CURRENT) USE OF ANTICOAGULANTS Status: Acute Current Visit: Yes (2) Hypoglycemia SNOMED Code(s): 003079958 ICD Code: E16.2 - HYPOGLYCEMIA, UNSPECIFIED Status: Acute Current Visit: Yes - Discharge Plan *PRESCRIPTION DRUG MONITORING PROGRAM REVIEWED*: No *COPY OF PRESCRIPTION DRUG MONITORING REPORT IN PATIENT BURT: No Prescriptions/Med Rec: Insulin Detemir [Levemir] 10 unit SQ WITHDINNER #1 vial Home Medications: Home Meds Aspirin [Nan Chewable Aspirin] 81 mg PO DAILY 02/27/14 [History] Calcium Citrate/Vitamin D3 [Calcium Citrate + D] 1 tab PO BID 02/27/14 [History] metFORMIN [Glucophage] 1,000 mg PO BIDM 02/27/14 [History] Losartan [Cozaar] 25 mg PO DAILY 03/09/17 [History] Saxagliptin [Onglyza] 5 mg PO DAILY 03/09/17 [History] hydroCHLOROthiazide [Hydrochlorothiazide] 25 mg PO DAILY 03/09/17 [History] Warfarin Sodium [Coumadin] 3.5 mg PO DAILY 08/23/17 [History] Dextrose [Glucose] 16 gm PO ASDIRECTED 08/20/18 [History] Pioglitazone HCl 45 mg PO DAILY 08/20/18 [History] Warfarin Sodium [Coumadin] 0.5 mg PO DAILY 08/20/18 [History] Insulin Detemir [Levemir] 10 unit SQ WITHDINNER #1 vial 08/21/18 [Rx] Forms: ED Department Discharge Referrals: PCP,Unobtain [Ordering Only Provider] - - Discharge Summary/Plan Comment DC Time >30 min.: No - General Info Date of Service: 08/21/18 Subjective Update: feeling well Functional Status: Reports: Tolerating Diet - Review of Systems General: Denies: Weakness Pulmonary: Denies: Shortness of Breath Cardiovascular: Denies: Chest Pain Gastrointestinal: Denies: Abdominal Pain Psychiatric: Denies: Confusion - Patient Data Vitals - Most Recent: Last Vital Signs Temp 36.3 C 08/21/18 13:23 Pulse 58 L 08/21/18 13:23 Resp 20 08/21/18 13:23 BP 121/60 08/21/18 13:23 Pulse Ox 100 08/21/18 13:23 Weight - Most Recent: 74.752 kg I&O - Last 24 hours: Intake & Output 08/21/18 08/21/18 08/21/18 06:59 14:59 22:59 Intake Total 275 820 Output Total 600 Balance -325 820 Lab Results - Last 24 hrs: Laboratory Results - last 24 hr 08/20/18 08/20/18 08/20/18 Range/Units 23:24 23:44 23:44 WBC 11.4 H (5.0-10.0) 10^3/uL RBC 4.97 (4.6-6.2) 10^6/uL Hgb 13.9 L (14.0-18.0) g/dL Hct 41.3 (40.0-54.0) % MCV 83.1 (80-100) fL MCH 28.0 (27.0-34.0) pg MCHC 33.7 (33.0-35.0) g/dL Plt Count 155 (150-450) 10^3/uL Neut % (Auto) 82.4 H (42.2-75.2) % Lymph % (Auto) 9.4 L (20.5-50.1) % [place] % (Auto) 7.2 (2-8) % Eos % (Auto) 0.8 L (1.0-3.0) % Baso % (Auto) 0.2 (0.0-1.0) % PT 25.2 H (9.0-12.0) SEC INR 2.6 H (0.9-1.2) Sodium (135-145) mmol/L Potassium (3.6-5.0) mmol/L Chloride (101-111) mmol/L Carbon Dioxide (21.0-31.0) mmol/L Anion Gap BUN (7-18) mg/dL Creatinine (0.6-1.3) mg/dL Est Cr Clr Drug Dosing mL/min Estimated GFR (MDRD) BUN/Creatinine Ratio Glucose (74-105) mg/dL POC Glucose 85 (83-110) mg/dl Calcium (8.4-10.2) mg/dl Phosphorus (2.5-4.6) mg/dL Magnesium (1.8-2.5) mg/dL Total Bilirubin (0.2-1.0) mg/dL AST (10-42) IU/L ALT (10-60) IU/L Alkaline Phosphatase (42-121) IU/L Total Protein (6.7-8.2) g/dl Albumin (3.2-5.5) g/dl Globulin Albumin/Globulin Ratio 08/20/18 08/21/18 08/21/18 Range/Units 23:44 00:19 00:50 WBC (5.0-10.0) 10^3/uL RBC (4.6-6.2) 10^6/uL Hgb (14.0-18.0) g/dL Hct (40.0-54.0) % MCV (80-100) fL MCH (27.0-34.0) pg MCHC (33.0-35.0) g/dL Plt Count (150-450) 10^3/uL Neut % (Auto) (42.2-75.2) % Lymph % (Auto) (20.5-50.1) % [place] % (Auto) (2-8) % Eos % (Auto) (1.0-3.0) % Baso % (Auto) (0.0-1.0) % PT (9.0-12.0) SEC INR (0.9-1.2) Sodium 135 (135-145) mmol/L Potassium 2.9 L (3.6-5.0) mmol/L Chloride 99 L (101-111) mmol/L Carbon Dioxide 24.0 (21.0-31.0) mmol/L Anion Gap 14.9 BUN 16 (7-18) mg/dL Creatinine 1.0 (0.6-1.3) mg/dL Est Cr Clr Drug Dosing 53.17 mL/min Estimated GFR (MDRD) > 60 BUN/Creatinine Ratio 16.00 Glucose 54 L (74-105) mg/dL POC Glucose 61 L 224 H (83-110) mg/dl Calcium 9.0 (8.4-10.2) mg/dl Phosphorus (2.5-4.6) mg/dL Magnesium (1.8-2.5) mg/dL Total Bilirubin 0.6 (0.2-1.0) mg/dL AST 34 (10-42) IU/L ALT 17 (10-60) IU/L Alkaline Phosphatase 69 (42-121) IU/L Total Protein 6.9 (6.7-8.2) g/dl Albumin 4.1 (3.2-5.5) g/dl Globulin 2.8 Albumin/Globulin Ratio 1.46 08/21/18 08/21/18 08/21/18 Range/Units 03:08 04:07 05:07 WBC (5.0-10.0) 10^3/uL RBC (4.6-6.2) 10^6/uL Hgb (14.0-18.0) g/dL Hct (40.0-54.0) % MCV (80-100) fL MCH (27.0-34.0) pg MCHC (33.0-35.0) g/dL Plt Count (150-450) 10^3/uL Neut % (Auto) (42.2-75.2) % Lymph % (Auto) (20.5-50.1) % [place] % (Auto) (2-8) % Eos % (Auto) (1.0-3.0) % Baso % (Auto) (0.0-1.0) % PT (9.0-12.0) SEC INR (0.9-1.2) Sodium (135-145) mmol/L Potassium (3.6-5.0) mmol/L Chloride (101-111) mmol/L Carbon Dioxide (21.0-31.0) mmol/L Anion Gap BUN (7-18) mg/dL Creatinine (0.6-1.3) mg/dL Est Cr Clr Drug Dosing mL/min Estimated GFR (MDRD) BUN/Creatinine Ratio Glucose (74-105) mg/dL POC Glucose 182 H 160 H 139 H (83-110) mg/dl Calcium (8.4-10.2) mg/dl Phosphorus (2.5-4.6) mg/dL Magnesium (1.8-2.5) mg/dL Total Bilirubin (0.2-1.0) mg/dL AST (10-42) IU/L ALT (10-60) IU/L Alkaline Phosphatase (42-121) IU/L Total Protein (6.7-8.2) g/dl Albumin (3.2-5.5) g/dl Globulin Albumin/Globulin Ratio 08/21/18 08/21/18 08/21/18 Range/Units 05:51 05:51 06:04 WBC (5.0-10.0) 10^3/uL RBC (4.6-6.2) 10^6/uL Hgb (14.0-18.0) g/dL Hct (40.0-54.0) % MCV (80-100) fL MCH (27.0-34.0) pg MCHC (33.0-35.0) g/dL Plt Count (150-450) 10^3/uL Neut % (Auto) (42.2-75.2) % Lymph % (Auto) (20.5-50.1) % [place] % (Auto) (2-8) % Eos % (Auto) (1.0-3.0) % Baso % (Auto) (0.0-1.0) % PT 26.1 H (9.0-12.0) SEC INR 2.7 H (0.9-1.2) Sodium 134 L (135-145) mmol/L Potassium 4.3 (3.6-5.0) mmol/L Chloride 102 (101-111) mmol/L Carbon Dioxide 24.0 (21.0-31.0) mmol/L Anion Gap 12.3 BUN 16 (7-18) mg/dL Creatinine 0.8 (0.6-1.3) mg/dL Est Cr Clr Drug Dosing 67.89 mL/min Estimated GFR (MDRD) > 60 BUN/Creatinine Ratio Glucose 143 H (74-105) mg/dL POC Glucose 137 H (83-110) mg/dl Calcium 8.3 L (8.4-10.2) mg/dl Phosphorus 2.9 (2.5-4.6) mg/dL Magnesium 1.6 L (1.8-2.5) mg/dL Total Bilirubin (0.2-1.0) mg/dL AST (10-42) IU/L ALT (10-60) IU/L Alkaline Phosphatase (42-121) IU/L Total Protein (6.7-8.2) g/dl Albumin (3.2-5.5) g/dl Globulin Albumin/Globulin Ratio 08/21/18 08/21/18 08/21/18 Range/Units 06:05 07:15 08:08 WBC 6.8 (5.0-10.0) 10^3/uL RBC 4.31 L (4.6-6.2) 10^6/uL Hgb 12.0 L D (14.0-18.0) g/dL Hct 36.1 L (40.0-54.0) % MCV 83.8 (80-100) fL MCH 27.8 (27.0-34.0) pg MCHC 33.2 (33.0-35.0) g/dL Plt Count 147 L (150-450) 10^3/uL Neut % (Auto) 60.9 (42.2-75.2) % Lymph % (Auto) 28.7 (20.5-50.1) % [place] % (Auto) 9.1 H (2-8) % Eos % (Auto) 1.3 (1.0-3.0) % Baso % (Auto) 0.0 (0.0-1.0) % PT (9.0-12.0) SEC INR (0.9-1.2) Sodium (135-145) mmol/L Potassium (3.6-5.0) mmol/L Chloride (101-111) mmol/L Carbon Dioxide (21.0-31.0) mmol/L Anion Gap BUN (7-18) mg/dL Creatinine (0.6-1.3) mg/dL Est Cr Clr Drug Dosing mL/min Estimated GFR (MDRD) BUN/Creatinine Ratio Glucose (74-105) mg/dL POC Glucose 130 H 125 H (83-110) mg/dl Calcium (8.4-10.2) mg/dl Phosphorus (2.5-4.6) mg/dL Magnesium (1.8-2.5) mg/dL Total Bilirubin (0.2-1.0) mg/dL AST (10-42) IU/L ALT (10-60) IU/L Alkaline Phosphatase (42-121) IU/L Total Protein (6.7-8.2) g/dl Albumin (3.2-5.5) g/dl Globulin Albumin/Globulin Ratio 08/21/18 08/21/18 08/21/18 Range/Units 11:17 13:12 15:04 WBC (5.0-10.0) 10^3/uL RBC (4.6-6.2) 10^6/uL Hgb (14.0-18.0) g/dL Hct (40.0-54.0) % MCV (80-100) fL MCH (27.0-34.0) pg MCHC (33.0-35.0) g/dL Plt Count (150-450) 10^3/uL Neut % (Auto) (42.2-75.2) % Lymph % (Auto) (20.5-50.1) % [place] % (Auto) (2-8) % Eos % (Auto) (1.0-3.0) % Baso % (Auto) (0.0-1.0) % PT (9.0-12.0) SEC INR (0.9-1.2) Sodium (135-145) mmol/L Potassium (3.6-5.0) mmol/L Chloride (101-111) mmol/L Carbon Dioxide (21.0-31.0) mmol/L Anion Gap BUN (7-18) mg/dL Creatinine (0.6-1.3) mg/dL Est Cr Clr Drug Dosing mL/min Estimated GFR (MDRD) BUN/Creatinine Ratio Glucose (74-105) mg/dL POC Glucose 110 161 H 128 H (83-110) mg/dl Calcium (8.4-10.2) mg/dl Phosphorus (2.5-4.6) mg/dL Magnesium (1.8-2.5) mg/dL Total Bilirubin (0.2-1.0) mg/dL AST (10-42) IU/L ALT (10-60) IU/L Alkaline Phosphatase (42-121) IU/L Total Protein (6.7-8.2) g/dl Albumin (3.2-5.5) g/dl Globulin Albumin/Globulin Ratio Med Orders - Current: Current Medications Acetaminophen (Tylenol) 650 mg PO Q4H PRN PRN Reason: Pain (Mild 1-3)/fever Aspirin (Aspirin) 81 mg PO DAILY [facility] Last Admin: 08/21/18 09:40 Dose: 81 mg Dextrose/Water (Dextrose 50% In Water) 50 ml IVPUSH .Q1H PRN PRN Reason: glucose < 100 Docusate Sodium (Colace) 100 mg PO BID PRN PRN Reason: Constipation Hydrochlorothiazide (Hydrochlorothiazide) 25 mg PO DAILY [facility] Last Admin: 08/21/18 09:40 Dose: 25 mg Losartan Potassium (Cozaar) 25 mg PO DAILY [facility] Last Admin: 08/21/18 09:40 Dose: 25 mg Sodium Chloride (Saline Flush) 10 ml FLUSH ASDIRECTED PRN PRN Reason: Keep Vein Open Temazepam (Restoril) 15 mg PO BEDTIME PRN PRN Reason: Sleep Warfarin Sodium (Pharmacy To Dose - Warfarin) 1 dose .XX ASDIRECTED [facility] Discontinued Medications Dextrose/Water (Dextrose 50% In Water) 50 ml IVPUSH ONETIME ONE Stop: 08/21/18 00:25 Last Admin: 08/21/18 00:28 Dose: 50 ml Potassium Chloride/Dextrose/Sod Cl (D5 Ns With 20 Meq Kcl) 1,000 mls @ 75 mls/ hr IV ASDIRECTED [facility] Last Admin: 08/21/18 02:37 Dose: 75 mls/hr Potassium Chloride (Klor-Con 10) 20 meq PO ONETIME ONE Stop: 08/21/18 00:14 Last Admin: 08/21/18 00:16 Dose: 20 meq Potassium Chloride (Klor-Con 10) 40 meq PO ONETIME ONE Stop: 08/21/18 02:08 Last Admin: 08/21/18 04:09 Dose: Not Given Potassium Chloride (Klor-Con 10) 20 meq PO ONETIME ONE Stop: 08/21/18 02:08 Last Admin: 08/21/18 02:38 Dose: 20 meq Potassium Chloride (Klor-Con 10) 40 meq PO ONETIME ONE Stop: 08/21/18 03:31 Last Admin: 08/21/18 03:23 Dose: 40 meq Warfarin Sodium (Pharmacy To Dose - Warfarin) 1 dose .XX ASDIRECTED [facility] Warfarin Sodium (Coumadin) 0.5 mg PO 1400 [facility] Stop: 08/21/18 14:01 Last Admin: 08/21/18 14:14 Dose: 0.5 mg - Exam General: Reports: Alert, Oriented Neck: Reports: Supple Lungs: Reports: Clear to Auscultation, Normal Respiratory Effort Cardiovascular: Reports: Regular Rate, Regular Rhythm GI/Abdominal Exam: Normal Bowel Sounds, Soft, Non-Tender Extremities: No Pedal Edema Psy/Mental Status: Reports: Alert, Normal Affect, Normal Mood
== END 2018-08-21 15:50 | disposition home or self-care (01) ==
LOC: DL.ED 23:18 → UNDOADMOB 08-21 00:47 → DL.MS 08-21 00:47
PROVIDERS: ADMIT Internal Medicine; ATTEND Internal Medicine
DX: E11.649 Type 2 diabetes mellitus with hypoglycemia without coma (principal); I10 Essential (primary) hypertension; I48.91 Unspecified atrial fibrillation; E87.6 Hypokalemia; E78.00 Pure hypercholesterolemia, unspecified; D51.9 Vitamin B12 deficiency anemia, unspecified; Z87.891 Personal history of nicotine dependence; Z79.01 Long term (current) use of anticoagulants; Z79.82 Long term (current) use of aspirin; Z79.4 Long term (current) use of insulin; Z95.2 Presence of prosthetic heart valve; Z98.890 Other specified postprocedural states
CPT/HCPCS: 36415; 80048; 80053; 82962; 83735; 84100; 85025; 85610; 96361; 96374; 99285-25; A9270-GY; G0378; J3480; J7060

== ENCOUNTER 2020-04-15 17:24 | Emergency (ER) | payer OTHER | END 2020-04-15 18:13 | disposition left against medical advice (07) | LOC: DL.ED 17:24 | DX: Z53.21 Procedure and treatment not carried out due to patient leaving prior to being seen by health care provider (principal) ==

== ENCOUNTER 2020-04-18 19:53 | Inpatient (IN) | payer MEDICARE, OTHER ==
--- NOTE | 2020-04-18 20:07 | EDM.PDOC ---
ED HPI GENERAL MEDICAL PROBLEM - General Chief Complaint: Back Pain or Injury Stated Complaint: AMBULANCE Time Seen by Provider: 04/18/20 20:06 Source of Information: Reports: Patient, EMS, EMS Notes Reviewed, RN, RN Notes Reviewed History Limitations: Reports: No Limitations - History of Present Illness INITIAL COMMENTS - FREE TEXT/NARRATIVE: Patient is an 84-year-old male who presents to the ER with [facility]. Patient states to the provider that he does not know why he is in the ER. Patient denies any falls and denies any pain to the provider. When len clemens questions orientation, he states he does not know what day it is, comments it is 2010, and states he does not know who the president is. When interviewed by the nurse, patient states he is here for low back pain which he rates a 10/10. Told the nurse he was in here the other day and did not want a wait to be seen so left. States he has been seeing a primary care provider who is not done anything for him. Onset: Gradual Lower Back Pain Score (Numeric/FACES): 10 - Related Data Allergies Allergy/AdvReac Type Severity Reaction Status Date / Time No Known Allergies Allergy Verified 04/18/20 19:58 Home Meds: Home Meds Aspirin [Nan Chewable Aspirin] 81 mg PO DAILY 02/27/14 [History] Calcium Citrate/Vitamin D3 [Calcium Citrate + D] 1 tab PO BID 02/27/14 [History] metFORMIN [Glucophage] 1,000 mg PO BIDM 02/27/14 [History] Losartan [Cozaar] 25 mg PO DAILY 03/09/17 [History] Saxagliptin [Onglyza] 5 mg PO DAILY 03/09/17 [History] hydroCHLOROthiazide [Hydrochlorothiazide] 25 mg PO DAILY 03/09/17 [History] Warfarin Sodium [Coumadin] 3.5 mg PO DAILY 08/23/17 [History] Dextrose [Glucose] 16 gm PO ASDIRECTED 08/20/18 [History] Pioglitazone HCl 45 mg PO DAILY 08/20/18 [History] Warfarin Sodium [Coumadin] 0.5 mg PO DAILY 08/20/18 [History] Insulin Detemir [Levemir] 10 unit SQ WITHDINNER #1 vial 08/21/18 [Rx] Past Medical History HEENT History: Reports: Impaired Vision Cardiovascular History: Reports: Afib, High Cholesterol, Hypertension Respiratory History: Reports: None Gastrointestinal History: Reports: None Genitourinary History: Reports: None Musculoskeletal History: Reports: None Neurological History: Reports: None Psychiatric History: Reports: None Endocrine/Metabolic History: Reports: Diabetes, Type II Hematologic History: Reports: Anemia, B12 Deficiency Immunologic History: Reports: None Oncologic (Cancer) History: Reports: None Dermatologic History: Reports: None - Infectious Disease History Infectious Disease History: Reports: Hepatitis A - Past Surgical History Head Surgeries/Procedures: Reports: None HEENT Surgical History: Reports: Cataract Surgery Other HEENT Surgeries/Procedures: BILATERAL CATARACT SURGERY Cardiovascular Surgical History: Reports: Other (See Below) Other Cardiovascular Surgeries/Procedures: open heart surgery (aortic valve replacement in july 13, 2015). Pig valve Respiratory Surgical History: Reports: None GI Surgical History: Reports: Appendectomy, Colonoscopy, EGD Male Surgical History: Reports: None Endocrine Surgical History: Reports: None Neurological Surgical History: Reports: None Musculoskeletal Surgical History: Reports: None Social & Family History - Family History Family Medical History: No Pertinent Family History - Tobacco Use Tobacco Use Status *Q: Never Tobacco User Second Hand Smoke Exposure: No - Caffeine Use Caffeine Use: Reports: None - Recreational Drug Use Recreational Drug Use: No - Living Situation & Occupation Living situation: Reports: , with Spouse Occupation: Retired ED ROS GENERAL - Review of Systems Review Of Systems: Comprehensive ROS is negative, except as noted in HPI. ED EXAM, GENERAL - Physical Exam Exam: See Below Exam Limited By: No Limitations General Appearance: Alert Ears: Normal External Exam, Hearing Grossly Normal Nose: Normal Inspection Throat/Mouth: Normal Inspection, Normal Voice, No Airway Compromise Head: Atraumatic, Normocephalic Neck: Normal Inspection, Supple, Non-Tender, Full Range of Motion Respiratory/Chest: Decreased Breath Sounds, Crackles (bases bilaterally) Cardiovascular: Normal Peripheral Pulses, Regular Rate, Rhythm, No Edema, No Gallop, No JVD, No Rub, Systolic Murmur, Other (paced) Peripheral Pulses: 2+: Radial (L), Radial (R) GI/Abdominal: Normal Bowel Sounds, Soft, Non-Tender (Male) Exam: Deferred Rectal (Males) Exam: Deferred Back Exam: Normal Inspection, Decreased Range of Motion Extremities: Normal Inspection, Non-Tender, No Pedal Edema, Normal Capillary Refill, Limited Range of Motion Neurological: Alert, Inattentive, Confused, Disoriented, Slow to Respond, Memory Loss Remote Events, Memory Loss Recent Events Psychiatric: Normal Affect, Normal Mood Skin Exam: Warm, Dry, Intact, Normal Color, No Rash Lymphatic: No Adenopathy Course - Vital Signs Last Recorded V/S: Last Vital Signs Temp 100.8 F H 04/18/20 19:53 Pulse 68 04/18/20 19:53 Resp 18 04/18/20 19:53 BP 127/49 L 04/18/20 20:01 Pulse Ox 95 04/18/20 19:53 - Orders/Labs/Meds Orders: Active Orders 24 hr Category Date Time Status Blood Glucose Check, Bedside [] ONETIME Care 04/18/20 21:25 Active Blood Glucose Check, Bedside [] ONETIME Care 04/18/20 21:33 Active EKG Documentation Completion [] STAT Care 04/18/20 19:56 Active CULTURE BLOOD [] Stat Lab 04/18/20 20:05 Results CULTURE BLOOD [] Stat Lab 04/18/20 20:20 Received Dextrose 50% in Water Med 04/18/20 21:17 Active 50 ml IV ASDIRECTED PRN Glucagon,Human Recombinant [GlucaGen] Med 04/18/20 21:17 Active 1 mg IM ASDIRECTED PRN Blood Culture x2 Reflex Set [OM.PC] Stat Oth 04/18/20 19:58 Ordered Medication Orders Dextrose/Water (Dextrose 50% In Water) 50 ml IV ASDIRECTED PRN PRN Reason: Hypoglycemia Glucagon (Glucagen) 1 mg IM ASDIRECTED PRN PRN Reason: Hypoglycemia Labs: Laboratory Tests 04/18/20 04/18/20 04/18/20 Range/Units 19:56 19:57 20:05 WBC 15.2 H (5.0-10.0) 10^3/uL RBC 4.09 L (4.6-6.2) 10^6/uL Hgb 10.5 L D (14.0-18.0) g/dL Hct 31.2 L (40.0-54.0) % MCV 76.3 L D (80-100) fL MCH 25.7 L (27.0-34.0) pg MCHC 33.7 (33.0-35.0) g/dL Plt Count 169 (150-450) 10^3/uL Neut % (Auto) 91.0 H (42.2-75.2) % Lymph % (Auto) 3.9 L (20.5-50.1) % [place] % (Auto) 4.9 (2-8) % Eos % (Auto) 0.1 L (1.0-3.0) % Baso % (Auto) 0.1 (0.0-1.0) % PT (9.0-12.0) SEC INR (0.9-1.2) Sodium (136-145) mmol/L Potassium (3.5-5.1) mmol/L Chloride (98-107) mmol/L Carbon Dioxide (21-32) mmol/L Anion Gap (7-13) mEq/L BUN (7-18) mg/dL Creatinine (0.70-1.30) mg/dL Est Cr Clr Drug Dosing mL/min Estimated GFR (MDRD) BUN/Creatinine Ratio (No establ ref range) Glucose (74-99) mg/dL POC Glucose 347 H (83-110) mg/dl Lactic Acid (0.4-2.0) mmol/L Calcium (8.5-10.1) mg/dL Magnesium (1.8-2.4) mg/dL Total Bilirubin (0.2-1.0) mg/dL AST (15-37) U/L ALT (16-63) U/L Alkaline Phosphatase (46-116) U/L Troponin I (0.000-0.056) ng/mL B-Natriuretic Peptide (0-100) pg/ml Total Protein (6.4-8.2) g/dL Albumin (3.4-5.0) g/dL Globulin Albumin/Globulin Ratio Urine Color Yellow (YELLOW) Urine Appearance Clear (CLEAR) Urine pH 5.5 (5.0-9.0) Ur Specific [place] 1.010 (1.005-1.030) Urine Protein 30 H (NEGATIVE) Urine Glucose (UA) >=1000 H (NEGATIVE) Urine Ketones Negative (NEGATIVE) Urine Occult Blood Negative (NEGATIVE) Urine Nitrite Negative (NEGATIVE) Urine Bilirubin Negative (NEGATIVE) Urine Urobilinogen 0.2 (0.2-1.0) mg/dL Ur Leukocyte Esterase Negative (NEGATIVE) Urine RBC Not seen /HPF Urine WBC 0-5 (0-5/HPF) /HPF Ur Epithelial Cells Moderate H (NOT SEEN) /HPF Urine Bacteria Moderate H (0-FEW/HPF) /HPF Ethyl Alcohol (0) mg/dL Ketones 04/18/20 04/18/20 04/18/20 Range/Units 20:05 20:05 20:05 WBC (5.0-10.0) 10^3/uL RBC (4.6-6.2) 10^6/uL Hgb (14.0-18.0) g/dL Hct (40.0-54.0) % MCV (80-100) fL MCH (27.0-34.0) pg MCHC (33.0-35.0) g/dL Plt Count (150-450) 10^3/uL Neut % (Auto) (42.2-75.2) % Lymph % (Auto) (20.5-50.1) % [place] % (Auto) (2-8) % Eos % (Auto) (1.0-3.0) % Baso % (Auto) (0.0-1.0) % PT 70.6 H D (9.0-12.0) SEC INR 7.6 H* (0.9-1.2) Sodium 128 L (136-145) mmol/L Potassium 4.4 (3.5-5.1) mmol/L Chloride 93 L (98-107) mmol/L Carbon Dioxide 24 (21-32) mmol/L Anion Gap 15.4 H (7-13) mEq/L BUN 23 H (7-18) mg/dL Creatinine 0.95 (0.70-1.30) mg/dL Est Cr Clr Drug Dosing 54.10 mL/min Estimated GFR (MDRD) > 60 BUN/Creatinine Ratio 24.2 (No establ ref range) Glucose 351 H (74-99) mg/dL POC Glucose (83-110) mg/dl Lactic Acid 1.4 (0.4-2.0) mmol/L Calcium 7.4 L (8.5-10.1) mg/dL Magnesium 2.1 (1.8-2.4) mg/dL Total Bilirubin 0.3 (0.2-1.0) mg/dL AST 87 H (15-37) U/L ALT 81 H (16-63) U/L Alkaline Phosphatase 205 H (46-116) U/L Troponin I (0.000-0.056) ng/mL B-Natriuretic Peptide (0-100) pg/ml Total Protein 5.5 L (6.4-8.2) g/dL Albumin 2.3 L (3.4-5.0) g/dL Globulin 3.2 Albumin/Globulin Ratio 0.72 Urine Color (YELLOW) Urine Appearance (CLEAR) Urine pH (5.0-9.0) Ur Specific [place] (1.005-1.030) Urine Protein (NEGATIVE) Urine Glucose (UA) (NEGATIVE) Urine Ketones (NEGATIVE) Urine Occult Blood (NEGATIVE) Urine Nitrite (NEGATIVE) Urine Bilirubin (NEGATIVE) Urine Urobilinogen (0.2-1.0) mg/dL Ur Leukocyte Esterase (NEGATIVE) Urine RBC /HPF Urine WBC (0-5/HPF) /HPF Ur Epithelial Cells (NOT SEEN) /HPF Urine Bacteria (0-FEW/HPF) /HPF Ethyl Alcohol 3 (0) mg/dL Ketones 04/18/20 04/18/20 04/18/20 Range/Units 20:05 20:05 20:05 WBC (5.0-10.0) 10^3/uL RBC (4.6-6.2) 10^6/uL Hgb (14.0-18.0) g/dL Hct (40.0-54.0) % MCV (80-100) fL MCH (27.0-34.0) pg MCHC (33.0-35.0) g/dL Plt Count (150-450) 10^3/uL Neut % (Auto) (42.2-75.2) % Lymph % (Auto) (20.5-50.1) % [place] % (Auto) (2-8) % Eos % (Auto) (1.0-3.0) % Baso % (Auto) (0.0-1.0) % PT (9.0-12.0) SEC INR (0.9-1.2) Sodium (136-145) mmol/L Potassium (3.5-5.1) mmol/L Chloride (98-107) mmol/L Carbon Dioxide (21-32) mmol/L Anion Gap (7-13) mEq/L BUN (7-18) mg/dL Creatinine (0.70-1.30) mg/dL Est Cr Clr Drug Dosing mL/min Estimated GFR (MDRD) BUN/Creatinine Ratio (No establ ref range) Glucose (74-99) mg/dL POC Glucose (83-110) mg/dl Lactic Acid (0.4-2.0) mmol/L Calcium (8.5-10.1) mg/dL Magnesium (1.8-2.4) mg/dL Total Bilirubin (0.2-1.0) mg/dL AST (15-37) U/L ALT (16-63) U/L Alkaline Phosphatase (46-116) U/L Troponin I < 0.017 (0.000-0.056) ng/mL B-Natriuretic Peptide 593 H (0-100) pg/ml Total Protein (6.4-8.2) g/dL Albumin (3.4-5.0) g/dL Globulin Albumin/Globulin Ratio Urine Color (YELLOW) Urine Appearance (CLEAR) Urine pH (5.0-9.0) Ur Specific [place] (1.005-1.030) Urine Protein (NEGATIVE) Urine Glucose (UA) (NEGATIVE) Urine Ketones (NEGATIVE) Urine Occult Blood (NEGATIVE) Urine Nitrite (NEGATIVE) Urine Bilirubin (NEGATIVE) Urine Urobilinogen (0.2-1.0) mg/dL Ur Leukocyte Esterase (NEGATIVE) Urine RBC /HPF Urine WBC (0-5/HPF) /HPF Ur Epithelial Cells (NOT SEEN) /HPF Urine Bacteria (0-FEW/HPF) /HPF Ethyl Alcohol (0) mg/dL Ketones Negative 04/18/20 Range/Units 21:24 WBC (5.0-10.0) 10^3/uL RBC (4.6-6.2) 10^6/uL Hgb (14.0-18.0) g/dL Hct (40.0-54.0) % MCV (80-100) fL MCH (27.0-34.0) pg MCHC (33.0-35.0) g/dL Plt Count (150-450) 10^3/uL Neut % (Auto) (42.2-75.2) % Lymph % (Auto) (20.5-50.1) % [place] % (Auto) (2-8) % Eos % (Auto) (1.0-3.0) % Baso % (Auto) (0.0-1.0) % PT (9.0-12.0) SEC INR (0.9-1.2) Sodium (136-145) mmol/L Potassium (3.5-5.1) mmol/L Chloride (98-107) mmol/L Carbon Dioxide (21-32) mmol/L Anion Gap (7-13) mEq/L BUN (7-18) mg/dL Creatinine (0.70-1.30) mg/dL Est Cr Clr Drug Dosing mL/min Estimated GFR (MDRD) BUN/Creatinine Ratio (No establ ref range) Glucose (74-99) mg/dL POC Glucose 329 H (83-110) mg/dl Lactic Acid (0.4-2.0) mmol/L Calcium (8.5-10.1) mg/dL Magnesium (1.8-2.4) mg/dL Total Bilirubin (0.2-1.0) mg/dL AST (15-37) U/L ALT (16-63) U/L Alkaline Phosphatase (46-116) U/L Troponin I (0.000-0.056) ng/mL B-Natriuretic Peptide (0-100) pg/ml Total Protein (6.4-8.2) g/dL Albumin (3.4-5.0) g/dL Globulin Albumin/Globulin Ratio Urine Color (YELLOW) Urine Appearance (CLEAR) Urine pH (5.0-9.0) Ur Specific [place] (1.005-1.030) Urine Protein (NEGATIVE) Urine Glucose (UA) (NEGATIVE) Urine Ketones (NEGATIVE) Urine Occult Blood (NEGATIVE) Urine Nitrite (NEGATIVE) Urine Bilirubin (NEGATIVE) Urine Urobilinogen (0.2-1.0) mg/dL Ur Leukocyte Esterase (NEGATIVE) Urine RBC /HPF Urine WBC (0-5/HPF) /HPF Ur Epithelial Cells (NOT SEEN) /HPF Urine Bacteria (0-FEW/HPF) /HPF Ethyl Alcohol (0) mg/dL Ketones Meds: Medications Generic Name Dose Route Start Last Admin Trade Name Freq PRN Reason Stop Dose Admin Dextrose/Water 50 ml 04/18/20 21:17 Dextrose 50% In Water IV ASDIRECTED PRN Hypoglycemia Glucagon 1 mg 04/18/20 21:17 Glucagen IM ASDIRECTED PRN Hypoglycemia Discontinued Medications Generic Name Dose Route Start Last Admin Trade Name Freq PRN Reason Stop Dose Admin Insulin Human Regular 10 unit 04/18/20 21:17 04/18/20 21:26 Humulin R IV 04/18/20 21:18 329 units ONETIME ONE Administration - Radiology Interpretation Free Text/Narrative:: Head CT wo contrast: PROCEDURE INFORMATION: Exam: CT Head Without Contrast Exam date and time: 04/18/2020 8:42 PM Age: 84 years old Clinical indication: Other: Confusion TECHNIQUE: Imaging protocol: Computed tomography of the head without contrast. Radiation optimization: All CT scans at this facility use at least one of these dose optimization techniques: automated exposure control; mA and/or kV adjustment per patient size (includes targeted exams where dose is matched to clinical indication); or iterative reconstruction. COMPARISON: No relevant prior studies available. FINDINGS: Brain: Age related brain involution is present. No acute intracranial hemorrhage, mass effect, midline shift, or brain herniation. Diffuse subcortical and periventricular white matter hypodensities are most in favor with chronic small vessel disease. Cerebral ventricles: There is ex vacuo ventriculomegaly. Bones/joints: Unremarkable. No acute fracture. Paranasal sinuses: Visualized sinuses are unremarkable. No fluid levels. Mastoid air cells: Visualized mastoid air cells are well aerated. Orbital cavity: There have been bilateral intraocular lens replacements. Soft tissues: Unremarkable. IMPRESSION: Negative for acute intracranial pathology. Thank you for allowing us to participate in the care of your patient. Dictated and Authenticated by: Gama Harris MD 04/18/2020 9:16 PM Central Time ([place] & [place]) CT of Lumbar Spine wo contrast: PROCEDURE INFORMATION: Exam: CT Lumbar Spine Without Contrast Exam date and time: 04/18/2020 8:42 PM Age: 84 years old Clinical indication: Other: Pain; Additional info: Back pain TECHNIQUE: Imaging protocol: Computed tomography images of the lumbar spine without contrast. Radiation optimization: All CT scans at this facility use at least one of these dose optimization techniques: automated exposure control; mA and/or kV adjustment per patient size (includes targeted exams where dose is matched to clinical indication); or iterative reconstruction. COMPARISON: No relevant prior studies available. FINDINGS: Vertebrae: No acute skeletal pathology. Mild multilevel degenerative changes of the spine, as manifested by multilevel anterior osteophytes and multilevel decrease in intervertebral disc space. Discs/Spinal canal/Neural foramina: There is prominent posterior disc bulging at L4-L5, not causing significant central canal stenosis, but causing moderate bilateral neural foraminal stenosis. Mild posterior disc bulging is also appreciated at L5-S1, not causing significant ce ntral canal stenosis, however causing moderate bilateral neural foraminal stenosis. No other significant neural foraminal stenosis is appreciated. Remainder of the spinal canal is patent. Other bones/joints: No aggressive osseous lesions. Lungs: Visualized lung bases are clear. Soft tissues: No acute soft tissue findings. Other findings: No acute findings in the visualized retroperitoneum. IMPRESSION: Mild multilevel degenerative changes and degenerative disc disease without acute skeletal pathology. Thank you for allowing us to participate in the care of your patient. Dictated and Authenticated by: Gama Harris MD 04/18/2020 9:21 PM Central Time ([place] & [place]) CT of Thoracic Spine wo contrast: PROCEDURE INFORMATION: Exam: CT Thoracic Spine Without Contrast Exam date and time: 04/18/2020 8:42 PM Age: 84 years old Clinical indication: Other: Pain; Additional info: Back pain TECHNIQUE: Imaging protocol: Computed tomography images of the thoracic spine without contrast. Radiation optimization: All CT scans at this facility use at least one of these dose optimization techniques: automated exposure control; mA and/or kV adjustment per patient size (includes targeted exams where dose is matched to clinical indication); or iterative reconstruction. COMPARISON: No relevant prior studies available. FINDINGS: Vertebrae: No acute skeletal pathology. Moderate multilevel degenerative changes of the spine, as manifested by multilevel anterior osteophytes and multilevel decrease in intervertebral disc space. Posterior elements appear otherwise intact. There is mild diffuse facet joint hypertrophy. Discs/Spinal canal/Neural foramina: Spinal canal is patent. No significant bony neural foraminal stenosis appreciated. Other bones/joints: Multilevel old/healed right rib fractures. Soft tissues: No acute soft tissue findings. Other findings: No acute findings in the visualized chest. IMPRESSION: Moderate multilevel degenerative changes without acute skeletal pathology. Thank you for allowing us to participate in the care of your patient. Dictated and Authenticated by: Gama Harris MD 04/18/2020 9:24 PM Central Time ([place] & [place]) Chest xray: PROCEDURE INFORMATION: Exam: XR Chest, 1 View Exam date and time: 04/18/2020 9:34 PM Age: 84 years old Clinical indication: Other: Pain; Additional info: Chest pain TECHNIQUE: Imaging protocol: XR of the chest Views: 1 view. COMPARISON: CT Chest Abdomen Pelvis w Cont 10/31/2017 1:38 AM FINDINGS: Tubes, catheters and devices: A pacemaker device is present, and its leads are in appropriate position. There are sternal wires consistent with previous sternotomy incision. Lungs: Unremarkable. No consolidation. Pleural spaces: Unremarkable. No pleural effusion. No pneumothorax. Heart/Mediastinum: Unremarkable. No cardiomegaly. Bones/joints: No acute skeletal abnormality or aggressive osseous lesion. IMPRESSION: Negative for acute thoracic pathology. Thank you for allowing us to participate in the care of your patient. Dictated and Authenticated by: Gama Harris MD 04/18/2020 9:51 PM Central Time ([place] & [place]) See rad report - Re-Assessments/Exams Free Text/Narrative Re-Assessment/Exam: 04/18/20 22:15 Discussed patient case with Dr. Cabrales who agreed to admit the patient for acute inpatient admission. Departure - Departure Time of Disposition: 22:16 Disposition: Admitted As Inpatient 68 Condition: Fair Clinical Impression: Acute encephalopathy, Elevated INR (international normalized ratio), Hyperglycemia CHF (congestive heart failure) Qualifiers: Heart failure type: unspecified Heart failure chronicity: acute on chronic Qualified Code(s): I50.9 - Heart failure, unspecified Back pain Qualifiers: Back pain location: low back pain Chronicity: acute Back pain laterality: midline Sciatica presence: unspecified whether sciatica present Qualified Code(s): M54.5 - Low back pain - Discharge Information *PRESCRIPTION DRUG MONITORING PROGRAM REVIEWED*: No *COPY OF PRESCRIPTION DRUG MONITORING REPORT IN PATIENT BURT: No Forms: ED Department Discharge Sepsis Event Note (ED) - Evaluation Sepsis Screening Result: No Definite Risk - Focused Exam Vital Signs: Vital Signs Temp Pulse Resp BP Pulse Ox 04/18/20 20:01 127/49 L 04/18/20 19:53 100.8 F H 68 18 130/105 H 95 - My Orders Last 24 Hours: My Active Orders 04/18/20 19:56 EKG Documentation Completion [RC] STAT 04/18/20 19:58 Blood Culture x2 Reflex Set [OM.PC] Stat 04/18/20 20:05 CULTURE BLOOD [BC] Stat 04/18/20 20:20 CULTURE BLOOD [BC] Stat 04/18/20 21:17 Dextrose 50% in Water 50 ml IV ASDIRECTED PRN Glucagon,Human Recombinant [GlucaGen] 1 mg IM ASDIRECTED PRN 04/18/20 21:25 Blood Glucose Check, Bedside [RC] ONETIME 04/18/20 21:33 Blood Glucose Check, Bedside [RC] ONETIME - Assessment/Plan Last 24 Hours: My Active Orders 04/18/20 19:56 EKG Documentation Completion [RC] STAT 04/18/20 19:58 Blood Culture x2 Reflex Set [OM.PC] Stat 04/18/20 20:05 CULTURE BLOOD [BC] Stat 04/18/20 20:20 CULTURE BLOOD [BC] Stat 04/18/20 21:17 Dextrose 50% in Water 50 ml IV ASDIRECTED PRN Glucagon,Human Recombinant [GlucaGen] 1 mg IM ASDIRECTED PRN 04/18/20 21:25 Blood Glucose Check, Bedside [RC] ONETIME 04/18/20 21:33 Blood Glucose Check, Bedside [RC] ONETIME
[2020-04-18 20:39] LABS: ANION GAP 15.4 mEq/L (7-13); CHLORIDE,CL 93 mmol/L (98-107); SODIUM,NA 128 mmol/L (136-145)
--- NOTE | 2020-04-18 21:16 | CT ---
PROCEDURE INFORMATION: Exam: CT Head Without Contrast Exam date and time: 04/18/2020 8:42 PM Age: 84 years old Clinical indication: Other: Confusion TECHNIQUE: Imaging protocol: Computed tomography of the head without contrast. Radiation optimization: All CT scans at this facility use at least one of these dose optimization techniques: automated exposure control; mA and/or kV adjustment per patient size (includes targeted exams where dose is matched to clinical indication); or iterative reconstruction. COMPARISON: No relevant prior studies available. FINDINGS: Brain: Age related brain involution is present. No acute intracranial hemorrhage, mass effect, midline shift, or brain herniation. Diffuse subcortical and periventricular white matter hypodensities are most in favor with chronic small vessel disease. Cerebral ventricles: There is ex vacuo ventriculomegaly. Bones/joints: Unremarkable. No acute fracture. Paranasal sinuses: Visualized sinuses are unremarkable. No fluid levels. Mastoid air cells: Visualized mastoid air cells are well aerated. Orbital cavity: There have been bilateral intraocular lens replacements. Soft tissues: Unremarkable. IMPRESSION: Negative for acute intracranial pathology.
[2020-04-18] MEDS ORDERED: 50% Dextrose in Water 50 ML Syringe IV PRN ×2 (21:17→23:29)
[2020-04-18] MEDS ORDERED: Insulin Regular, Human 100 Units/ML 3 ML Vial IV ONE (21:17)
[2020-04-18] MEDS ORDERED: Glucagon,Human Recombinant 1 MG Vial IM PRN ×2 (21:17→23:29)
--- NOTE | 2020-04-18 21:21 | CT ---
PROCEDURE INFORMATION: Exam: CT Lumbar Spine Without Contrast Exam date and time: 04/18/2020 8:42 PM Age: 84 years old Clinical indication: Other: Pain; Additional info: Back pain TECHNIQUE: Imaging protocol: Computed tomography images of the lumbar spine without contrast. Radiation optimization: All CT scans at this facility use at least one of these dose optimization techniques: automated exposure control; mA and/or kV adjustment per patient size (includes targeted exams where dose is matched to clinical indication); or iterative reconstruction. COMPARISON: No relevant prior studies available. FINDINGS: Vertebrae: No acute skeletal pathology. Mild multilevel degenerative changes of the spine, as manifested by multilevel anterior osteophytes and multilevel decrease in intervertebral disc space. Discs/Spinal canal/Neural foramina: There is prominent posterior disc bulging at L4-L5, not causing significant central canal stenosis, but causing moderate bilateral neural foraminal stenosis. Mild posterior disc bulging is also appreciated at L5-S1, not causing significant central canal stenosis, however causing moderate bilateral neural foraminal stenosis. No other significant neural foraminal stenosis is appreciated. Remainder of the spinal canal is patent. Other bones/joints: No aggressive osseous lesions. Lungs: Visualized lung bases are clear. Soft tissues: No acute soft tissue findings. Other findings: No acute findings in the visualized retroperitoneum. IMPRESSION: Mild multilevel degenerative changes and degenerative disc disease without acute skeletal pathology.
--- NOTE | 2020-04-18 21:25 | CT ---
PROCEDURE INFORMATION: Exam: CT Thoracic Spine Without Contrast Exam date and time: 04/18/2020 8:42 PM Age: 84 years old Clinical indication: Other: Pain; Additional info: Back pain TECHNIQUE: Imaging protocol: Computed tomography images of the thoracic spine without contrast. Radiation optimization: All CT scans at this facility use at least one of these dose optimization techniques: automated exposure control; mA and/or kV adjustment per patient size (includes targeted exams where dose is matched to clinical indication); or iterative reconstruction. COMPARISON: No relevant prior studies available. FINDINGS: Vertebrae: No acute skeletal pathology. Moderate multilevel degenerative changes of the spine, as manifested by multilevel anterior osteophytes and multilevel decrease in intervertebral disc space. Posterior elements appear otherwise intact. There is mild diffuse facet joint hypertrophy. Discs/Spinal canal/Neural foramina: Spinal canal is patent. No significant bony neural foraminal stenosis appreciated. Other bones/joints: Multilevel old/healed right rib fractures. Soft tissues: No acute soft tissue findings. Other findings: No acute findings in the visualized chest. IMPRESSION: Moderate multilevel degenerative changes without acute skeletal pathology.
--- NOTE | 2020-04-18 21:52 | CR ---
PROCEDURE INFORMATION: Exam: XR Chest, 1 View Exam date and time: 04/18/2020 9:34 PM Age: 84 years old Clinical indication: Other: Pain; Additional info: Chest pain TECHNIQUE: Imaging protocol: XR of the chest Views: 1 view. COMPARISON: CT Chest Abdomen Pelvis w Cont 10/31/2017 1:38 AM FINDINGS: Tubes, catheters and devices: A pacemaker device is present, and its leads are in appropriate position. There are sternal wires consistent with previous sternotomy incision. Lungs: Unremarkable. No consolidation. Pleural spaces: Unremarkable. No pleural effusion. No pneumothorax. Heart/Mediastinum: Unremarkable. No cardiomegaly. Bones/joints: No acute skeletal abnormality or aggressive osseous lesion. IMPRESSION: Negative for acute thoracic pathology.
[2020-04-18] MEDS ORDERED: Magnesium Hydroxide 400 MG/5 ML Susp 30 ML Cup PO PRN (22:55)
[2020-04-18] MEDS ORDERED: Docusate Sodium 100 MG Cap PO PRN (22:55)
[2020-04-18] MEDS ORDERED: Ondansetron 4 MG/2 ML SDV IVPUSH PRN (22:55)
[2020-04-18] MEDS ORDERED: Phytonadione 5 MG Tab PO ONE (23:04)
--- NOTE | 2020-04-18 23:13 | PCM.HP ---
H&P History of Present Illness - General Date of Service: 04/18/20 Admit Problem/Dx: Admission Diagnosis/Problem Admission Diagnosis/Problem Acute encephalopathy Source of Information: EMS Notes Reviewed, Family History Limitations: Reports: No Limitations, Altered Mental Status - History of Present Illness Initial Comments - Free Text/Narative: Derian is a 84-year-old male with history of hypertension, type 2 diabetes brought to the ED EMS for evaluation of acting confused. Patient is a poor historian and unable to provide adequate history. Per ED provider patient was only oriented to name. Was unable to tell the year and able to name the current president. When I asked patient why he is in the hospital he said he does not know why they brought him to the hospital. At the time of my evaluation patient is oriented to time place and person. Denies any complaints. He denies fall. Patient apparently reported 10 out of 10 low back pain in the ED but denies pain at this time. Denies cough, fever, chills. No abdominal pain, nausea, vomiting. He is awake and alert. Vitals in the ED unremarkable. Labs significant for WBC 15.2, INR 7.6, sodium 128, glucose 347. Chest x-ray was negative. CT head was negative. CT of cervical spine, lumbar spine negative for acute fracture. Admission was requested for further management. Onset of Symptoms: Reports: Gradual Location: Reports: Generalized Quality: Reports: Ache Improves with: Reports: None Worsens with: Reports: None Associated Symptoms: Reports: Weakness Lower Back Pain Score (Numeric/FACES): 10 - Related Data Allergies/Adverse Reactions: Allergies Allergy/AdvReac Type Severity Reaction Status Date / Time No Known Allergies Allergy Verified 04/18/20 19:58 Home Medications: Home Meds Aspirin [Nan Chewable Aspirin] 81 mg PO DAILY 02/27/14 [History] Calcium Citrate/Vitamin D3 [Calcium Citrate + D] 1 tab PO BID 02/27/14 [History] metFORMIN [Glucophage] 1,000 mg PO BIDM 02/27/14 [History] Losartan [Cozaar] 25 mg PO DAILY 03/09/17 [History] Saxagliptin [Onglyza] 5 mg PO DAILY 03/09/17 [History] hydroCHLOROthiazide [Hydrochlorothiazide] 25 mg PO DAILY 03/09/17 [History] Warfarin Sodium [Coumadin] 3.5 mg PO DAILY 08/23/17 [History] Dextrose [Glucose] 16 gm PO ASDIRECTED 08/20/18 [History] Pioglitazone HCl 45 mg PO DAILY 08/20/18 [History] Warfarin Sodium [Coumadin] 0.5 mg PO DAILY 08/20/18 [History] Insulin Detemir [Levemir] 10 unit SQ WITHDINNER #1 vial 08/21/18 [Rx] Past Medical History HEENT History: Reports: Impaired Vision Cardiovascular History: Reports: Afib, High Cholesterol, Hypertension, Pacemaker Respiratory History: Reports: None Gastrointestinal History: Reports: None Genitourinary History: Reports: None Musculoskeletal History: Reports: Back Pain, Chronic Neurological History: Reports: None Psychiatric History: Reports: None Endocrine/Metabolic History: Reports: Diabetes, Type II Hematologic History: Reports: Anemia, B12 Deficiency Immunologic History: Reports: None Oncologic (Cancer) History: Reports: None Dermatologic History: Reports: None - Infectious Disease History Infectious Disease History: Reports: Hepatitis A - Past Surgical History Head Surgeries/Procedures: Reports: None HEENT Surgical History: Reports: Cataract Surgery Other HEENT Surgeries/Procedures: BILATERAL CATARACT SURGERY Cardiovascular Surgical History: Reports: Pacer, Other (See Below) Other Cardiovascular Surgeries/Procedures: open heart surgery (aortic valve replacement in july 13, 2015). Pig valve Respiratory Surgical History: Reports: None GI Surgical History: Reports: Appendectomy, Colonoscopy, EGD Male Surgical History: Reports: None Endocrine Surgical History: Reports: None Neurological Surgical History: Reports: None Musculoskeletal Surgical History: Reports: None Social & Family History - Family History Family Medical History: No Pertinent Family History - Tobacco Use Tobacco Use Status *Q: Never Tobacco User Second Hand Smoke Exposure: No - Caffeine Use Caffeine Use: Reports: None - Recreational Drug Use Recreational Drug Use: No - Living Situation & Occupation Living situation: Reports: , with Spouse Occupation: Retired H&P Review of Systems - Review of Systems: Review Of Systems: See Below (As per HPI) General: Reports: No Symptoms HEENT: Reports: No Symptoms Pulmonary: Reports: No Symptoms Cardiovascular: Reports: No Symptoms Gastrointestinal: Reports: No Symptoms Genitourinary: Reports: No Symptoms Musculoskeletal: Reports: No Symptoms Skin: Reports: No Symptoms Psychiatric: Reports: No Symptoms Neurological: Reports: No Symptoms Hematologic/Lymphatic: Reports: No Symptoms Immunologic: Reports: No Symptoms Exam - Exam Exam: See Below (As per HPI) - Vital Signs Vital Signs: Last Vital Signs Temp 97.8 F 04/18/20 22:32 Pulse 86 04/18/20 22:32 Resp 14 04/18/20 22:32 BP 144/70 H 04/18/20 22:32 Pulse Ox 95 04/18/20 22:32 Weight: 156 lb 4.8 oz - Exam General: Alert, Oriented, 4 HEENT: PERRLA, Hearing Intact, Mucosa Moist & [place], Nares Patent, Normal Nasal Septum, Posterior Pharynx Clear, Conjunctiva Clear, EOMI, EACs Clear, TMs Clear Neck: Supple, Trachea Midline, 2 Lungs: Clear to Auscultation, Normal Respiratory Effort Cardiovascular: Regular Rate, Regular Rhythm GI/Abdominal Exam: Normal Bowel Sounds, Soft, Non-Tender, No Organomegaly, No Distention, No Abnormal Bruit, No Mass, Pelvis Stable (Male) Exam: No Hernia, Normal Inspection, Normal Prostate, Circumcised Rectal (Males) Exam: Normal Exam, Normal Rectal Tone, Prostate Normal Back Exam: Normal Inspection, Full Range of Motion, NT Extremities: Normal Inspection, Normal Range of Motion, Non-Tender, No Pedal Edema, Normal Capillary Refill Skin: Warm, Dry, Intact Neurological: Cranial Nerves Intact, Reflexes Equal Bilateral Neuro Extensive - Mental Status: Alert, Oriented x3, Normal Mood/Affect, Normal Cognition Neuro Extensive - Motor, Sensory, Reflexes: CN II-XII Intact, Normal Gait, Normal Reflexes Psychiatric: Alert, Normal Affect, Normal Mood - Patient Data Lab Results Last 24 hrs: Laboratory Results - last 24 hr 04/18/20 04/18/20 04/18/20 Range/Units 19:56 19:57 20:05 WBC 15.2 H (5.0-10.0) 10^3/uL RBC 4.09 L (4.6-6.2) 10^6/uL Hgb 10.5 L D (14.0-18.0) g/dL Hct 31.2 L (40.0-54.0) % MCV 76.3 L D (80-100) fL MCH 25.7 L (27.0-34.0) pg MCHC 33.7 (33.0-35.0) g/dL Plt Count 169 (150-450) 10^3/uL Neut % (Auto) 91.0 H (42.2-75.2) % Lymph % (Auto) 3.9 L (20.5-50.1) % Reeves % (Auto) 4.9 (2-8) % Eos % (Auto) 0.1 L (1.0-3.0) % Baso % (Auto) 0.1 (0.0-1.0) % PT (9.0-12.0) SEC INR (0.9-1.2) Sodium (136-145) mmol/L Potassium (3.5-5.1) mmol/L Chloride (98-107) mmol/L Carbon Dioxide (21-32) mmol/L Anion Gap (7-13) mEq/L BUN (7-18) mg/dL Creatinine (0.70-1.30) mg/dL Est Cr Clr Drug Dosing mL/min Estimated GFR (MDRD) BUN/Creatinine Ratio (No establ ref range) Glucose (74-99) mg/dL POC Glucose 347 H (83-110) mg/dl Lactic Acid (0.4-2.0) mmol/L Calcium (8.5-10.1) mg/dL Magnesium (1.8-2.4) mg/dL Total Bilirubin (0.2-1.0) mg/dL AST (15-37) U/L ALT (16-63) U/L Alkaline Phosphatase (46-116) U/L Troponin I (0.000-0.056) ng/mL B-Natriuretic Peptide (0-100) pg/ml Total Protein (6.4-8.2) g/dL Albumin (3.4-5.0) g/dL Globulin Albumin/Globulin Ratio Urine Color Yellow (YELLOW) Urine Appearance Clear (CLEAR) Urine pH 5.5 (5.0-9.0) Ur Specific Amo 1.010 (1.005-1.030) Urine Protein 30 H (NEGATIVE) Urine Glucose (UA) >=1000 H (NEGATIVE) Urine Ketones Negative (NEGATIVE) Urine Occult Blood Negative (NEGATIVE) Urine Nitrite Negative (NEGATIVE) Urine Bilirubin Negative (NEGATIVE) Urine Urobilinogen 0.2 (0.2-1.0) mg/dL Ur Leukocyte Esterase Negative (NEGATIVE) Urine RBC Not seen /HPF Urine WBC 0-5 (0-5/HPF) /HPF Ur Epithelial Cells Moderate H (NOT SEEN) /HPF Urine Bacteria Moderate H (0-FEW/HPF) /HPF Ethyl Alcohol (0) mg/dL Ketones 04/18/20 04/18/20 04/18/20 Range/Units 20:05 20:05 20:05 WBC (5.0-10.0) 10^3/uL RBC (4.6-6.2) 10^6/uL Hgb (14.0-18.0) g/dL Hct (40.0-54.0) % MCV (80-100) fL MCH (27.0-34.0) pg MCHC (33.0-35.0) g/dL Plt Count (150-450) 10^3/uL Neut % (Auto) (42.2-75.2) % Lymph % (Auto) (20.5-50.1) % Reeves % (Auto) (2-8) % Eos % (Auto) (1.0-3.0) % Baso % (Auto) (0.0-1.0) % PT 70.6 H D (9.0-12.0) SEC INR 7.6 H* (0.9-1.2) Sodium 128 L (136-145) mmol/L Potassium 4.4 (3.5-5.1) mmol/L Chloride 93 L (98-107) mmol/L Carbon Dioxide 24 (21-32) mmol/L Anion Gap 15.4 H (7-13) mEq/L BUN 23 H (7-18) mg/dL Creatinine 0.95 (0.70-1.30) mg/dL Est Cr Clr Drug Dosing 54.10 mL/min Estimated GFR (MDRD) > 60 BUN/Creatinine Ratio 24.2 (No establ ref range) Glucose 351 H (74-99) mg/dL POC Glucose (83-110) mg/dl Lactic Acid 1.4 (0.4-2.0) mmol/L Calcium 7.4 L (8.5-10.1) mg/dL Magnesium 2.1 (1.8-2.4) mg/dL Total Bilirubin 0.3 (0.2-1.0) mg/dL AST 87 H (15-37) U/L ALT 81 H (16-63) U/L Alkaline Phosphatase 205 H (46-116) U/L Troponin I (0.000-0.056) ng/mL B-Natriuretic Peptide (0-100) pg/ml Total Protein 5.5 L (6.4-8.2) g/dL Albumin 2.3 L (3.4-5.0) g/dL Globulin 3.2 Albumin/Globulin Ratio 0.72 Urine Color (YELLOW) Urine Appearance (CLEAR) Urine pH (5.0-9.0) Ur Specific Amo (1.005-1.030) Urine Protein (NEGATIVE) Urine Glucose (UA) (NEGATIVE) Urine Ketones (NEGATIVE) Urine Occult Blood (NEGATIVE) Urine Nitrite (NEGATIVE) Urine Bilirubin (NEGATIVE) Urine Urobilinogen (0.2-1.0) mg/dL Ur Leukocyte Esterase (NEGATIVE) Urine RBC /HPF Urine WBC (0-5/HPF) /HPF Ur Epithelial Cells (NOT SEEN) /HPF Urine Bacteria (0-FEW/HPF) /HPF Ethyl Alcohol 3 (0) mg/dL Ketones 04/18/20 04/18/20 04/18/20 Range/Units 20:05 20:05 20:05 WBC (5.0-10.0) 10^3/uL RBC (4.6-6.2) 10^6/uL Hgb (14.0-18.0) g/dL Hct (40.0-54.0) % MCV (80-100) fL MCH (27.0-34.0) pg MCHC (33.0-35.0) g/dL Plt Count (150-450) 10^3/uL Neut % (Auto) (42.2-75.2) % Lymph % (Auto) (20.5-50.1) % Reeves % (Auto) (2-8) % Eos % (Auto) (1.0-3.0) % Baso % (Auto) (0.0-1.0) % PT (9.0-12.0) SEC INR (0.9-1.2) Sodium (136-145) mmol/L Potassium (3.5-5.1) mmol/L Chloride (98-107) mmol/L Carbon Dioxide (21-32) mmol/L Anion Gap (7-13) mEq/L BUN (7-18) mg/dL Creatinine (0.70-1.30) mg/dL Est Cr Clr Drug Dosing mL/min Estimated GFR (MDRD) BUN/Creatinine Ratio (No establ ref range) Glucose (74-99) mg/dL POC Glucose (83-110) mg/dl Lactic Acid (0.4-2.0) mmol/L Calcium (8.5-10.1) mg/dL Magnesium (1.8-2.4) mg/dL Total Bilirubin (0.2-1.0) mg/dL AST (15-37) U/L ALT (16-63) U/L Alkaline Phosphatase (46-116) U/L Troponin I < 0.017 (0.000-0.056) ng/mL B-Natriuretic Peptide 593 H (0-100) pg/ml Total Protein (6.4-8.2) g/dL Albumin (3.4-5.0) g/dL Globulin Albumin/Globulin Ratio Urine Color (YELLOW) Urine Appearance (CLEAR) Urine pH (5.0-9.0) Ur Specific Amo (1.005-1.030) Urine Protein (NEGATIVE) Urine Glucose (UA) (NEGATIVE) Urine Ketones (NEGATIVE) Urine Occult Blood (NEGATIVE) Urine Nitrite (NEGATIVE) Urine Bilirubin (NEGATIVE) Urine Urobilinogen (0.2-1.0) mg/dL Ur Leukocyte Esterase (NEGATIVE) Urine RBC /HPF Urine WBC (0-5/HPF) /HPF Ur Epithelial Cells (NOT SEEN) /HPF Urine Bacteria (0-FEW/HPF) /HPF Ethyl Alcohol (0) mg/dL Ketones Negative 04/18/20 04/18/20 Range/Units 21:24 22:05 WBC (5.0-10.0) 10^3/uL RBC (4.6-6.2) 10^6/uL Hgb (14.0-18.0) g/dL Hct (40.0-54.0) % MCV (80-100) fL MCH (27.0-34.0) pg MCHC (33.0-35.0) g/dL Plt Count (150-450) 10^3/uL Neut % (Auto) (42.2-75.2) % Lymph % (Auto) (20.5-50.1) % Reeves % (Auto) (2-8) % Eos % (Auto) (1.0-3.0) % Baso % (Auto) (0.0-1.0) % PT (9.0-12.0) SEC INR (0.9-1.2) Sodium (136-145) mmol/L Potassium (3.5-5.1) mmol/L Chloride (98-107) mmol/L Carbon Dioxide (21-32) mmol/L Anion Gap (7-13) mEq/L BUN (7-18) mg/dL Creatinine (0.70-1.30) mg/dL Est Cr Clr Drug Dosing mL/min Estimated GFR (MDRD) BUN/Creatinine Ratio (No establ ref range) Glucose (74-99) mg/dL POC Glucose 329 H 210 H (83-110) mg/dl Lactic Acid (0.4-2.0) mmol/L Calcium (8.5-10.1) mg/dL Magnesium (1.8-2.4) mg/dL Total Bilirubin (0.2-1.0) mg/dL AST (15-37) U/L ALT (16-63) U/L Alkaline Phosphatase (46-116) U/L Troponin I (0.000-0.056) ng/mL B-Natriuretic Peptide (0-100) pg/ml Total Protein (6.4-8.2) g/dL Albumin (3.4-5.0) g/dL Globulin Albumin/Globulin Ratio Urine Color (YELLOW) Urine Appearance (CLEAR) Urine pH (5.0-9.0) Ur Specific Amo (1.005-1.030) Urine Protein (NEGATIVE) Urine Glucose (UA) (NEGATIVE) Urine Ketones (NEGATIVE) Urine Occult Blood (NEGATIVE) Urine Nitrite (NEGATIVE) Urine Bilirubin (NEGATIVE) Urine Urobilinogen (0.2-1.0) mg/dL Ur Leukocyte Esterase (NEGATIVE) Urine RBC /HPF Urine WBC (0-5/HPF) /HPF Ur Epithelial Cells (NOT SEEN) /HPF Urine Bacteria (0-FEW/HPF) /HPF Ethyl Alcohol (0) mg/dL Ketones Result Diagrams: 04/19/20 06:15 04/18/20 20:05 Yosef Results Last 24 hrs: Microbiology 04/18/20 20:05 Anaerobic Blood Culture - Final Blood - Venous *Q Meaningful Use (ADM) - VTE *Q VTE Anticoagulation Contraindications: Medical/Procedure Contrai - Problem List (1) Leukoaraiosis SNOMED Code(s): 60615439 ICD Code: I67.81 - ACUTE CEREBROVASCULAR INSUFFICIENCY Status: Acute Current Visit: Yes (2) Chronic anemia SNOMED Code(s): 195428912 ICD Code: D64.9 - ANEMIA, UNSPECIFIED Status: Acute Current Visit: Yes (3) Uncontrolled type 2 diabetes mellitus SNOMED Code(s): 245479970, 682016760 ICD Code: E11.65 - TYPE 2 DIABETES MELLITUS WITH HYPERGLYCEMIA Status: Acute Current Visit: Yes (4) Hepatitis, alcoholic SNOMED Code(s): 099241841 ICD Code: K70.10 - ALCOHOLIC HEPATITIS WITHOUT ASCITES Status: Acute Current Visit: Yes (5) SIRS without infection with organ dysfunction SNOMED Code(s): 319266518213347, 742171133646285 ICD Code: R65.11 - SIRS OF NON-INFECTIOUS ORIGIN W ACUTE ORGAN DYSFUNCTION Status: Acute Current Visit: Yes (6) Elevated brain natriuretic peptide (BNP) level SNOMED Code(s): 827222591, 109770326 ICD Code: R79.89 - OTHER SPECIFIED ABNORMAL FINDINGS OF BLOOD CHEMISTRY Status: Acute Current Visit: Yes (7) Hypoglycemia SNOMED Code(s): 894786994 ICD Code: E16.2 - HYPOGLYCEMIA, UNSPECIFIED Status: Acute Current Visit: No (8) Hyponatremia SNOMED Code(s): 07636526 ICD Code: E87.1 - HYPO-OSMOLALITY AND HYPONATREMIA Status: Acute Current Visit: Yes Problem List Initiated/Reviewed/Updated: Yes Orders Last 24hrs: Active Orders 24 hr Category Date Time Status Admission Diagnosis [ADT] Stat ADT 04/18/20 22:17 Ordered Admission Status [Patient Status] [ADT] Routine ADT 04/18/20 22:17 Active Ambulate [RC] ASDIRECTED Care 04/18/20 22:55 Ordered Intake and Output [RC] QSHIFT Care 04/18/20 22:56 Ordered Notify Provider Vital Signs [RC] ASDIRECTED Care 04/18/20 22:56 Ordered Oxygen Therapy [RC] PRN Care 04/18/20 22:55 Ordered VTE/DVT Education [RC] PER UNIT ROUTINE Care 04/18/20 22:55 Ordered Vital Signs [RC] Q4H Care 04/18/20 22:55 Ordered OT Evaluation and Treatment [CONS] Routine Cons 04/18/20 22:55 Ordered PT Evaluation and Treatment [CONS] Routine Cons 04/18/20 22:55 Ordered Regular Diet [DIET] Diet 04/18/20 Breakfast Ordered BASIC METABOLIC PANEL,BMP [CHEM] AM Lab 04/19/20 05:11 Ordered CBC W/O DIFF,HEMOGRAM [HEME] AM Lab 04/19/20 05:11 Ordered CORONAVIRUS COVID-19 JAMEL [MOLEC] Stat Lab 04/18/20 22:26 Received CULTURE BLOOD [BC] Stat Lab 04/18/20 20:05 Results CULTURE BLOOD [BC] Stat Lab 04/18/20 20:20 Received INR,PT,PROTHROMBIN TIME [COAG] AM Lab 04/19/20 05:11 Ordered INR,PT,PROTHROMBIN TIME [COAG] AM Lab 04/20/20 05:11 Ordered INR,PT,PROTHROMBIN TIME [COAG] AM Lab 04/21/20 05:11 Ordered MAGNESIUM [CHEM] Routine Lab 04/18/20 22:55 Ordered PHOSPHORUS [CHEM] Routine Lab 04/18/20 22:55 Ordered Acetaminophen [TylenoL] Med 04/18/20 22:55 Ordered 650 mg PO Q6H PRN Dextrose 50% in Water Med 04/18/20 21:17 Active 50 ml IV ASDIRECTED PRN Docusate Sodium [Colace] Med 04/18/20 22:55 Ordered 100 mg PO BID PRN Glucagon,Human Recombinant [GlucaGen] Med 04/18/20 21:17 Active 1 mg IM ASDIRECTED PRN Magnesium Hydroxide [Milk of Magnesia] Med 04/18/20 22:55 Ordered 30 ml PO Q12H PRN Ondansetron [Zofran] Med 04/18/20 22:55 Ordered 4 mg IVPUSH Q6H PRN oxyCODONE Med 04/18/20 22:55 Ordered 5 mg PO Q6H PRN Anticoagulation Contraindications VTE [AST] Per Unit Oth 04/18/20 22:55 Ordered Routine Blood Culture x2 Reflex Set [OM.PC] Stat Oth 04/18/20 19:58 Ordered Resuscitation Status Routine Resus Stat 04/18/20 22:55 Ordered Medication Orders Acetaminophen (Tylenol) 650 mg PO Q6H PRN PRN Reason: Pain (Mild 1-3)/fever Dextrose/Water (Dextrose 50% In Water) 50 ml IV ASDIRECTED PRN PRN Reason: Hypoglycemia Docusate Sodium (Colace) 100 mg PO BID PRN PRN Reason: Constipation Glucagon (Glucagen) 1 mg IM ASDIRECTED PRN PRN Reason: Hypoglycemia Magnesium Hydroxide (Milk Of Magnesia) 30 ml PO Q12H PRN PRN Reason: Constipation Ondansetron HCl (Zofran) 4 mg IVPUSH Q6H PRN PRN Reason: Nausea/Vomiting Oxycodone HCl (Oxycodone) 5 mg PO Q6H PRN PRN Reason: Pain (moderate 4-6) Assessment/Plan Comment:: #Acute encephalopathy likely metabolic IVF Monitor mental status #Supratherapeutic INR Patient on chronic anti-coagulation with Coumadin INR 7.6 Hold Coumadin Give 5 mg Vit K Daily INR #SIRs without infection IVF #Uncontrolled Type II DM Serum glucose 347 Patient on Metformin. Hold for now Continue Levemir 10 units qhs, Pioglitazone and saxagliptin Sliding scale insulin Accu-cheks Hypoglycemic protocol #HTN Controlled Continue home medications Monitor BP #Hepatitis likely due to alcohol abuse Monitor LFTs #Elevated BNP Gentle IV hydration #Hypocalcemia send for ionized ca #Acute on chronic back pain Oxycodone prn PT/OT #Diet Consistent carb #CODE STATUS Full
[2020-04-18] MEDS: oxyCODONE 5 MG Tab PO PRN (23:24)
[2020-04-18] MEDS ORDERED: DEXTROSE PO SCH (23:30)
[2020-04-18] MEDS ORDERED: Sodium Chloride 0.9% 1,000 ML IV SCH (23:30)
[2020-04-18] MEDS ORDERED: [UNRECOGNIZED DRUG - OTHER] PO SCH (23:30)
[2020-04-19] MEDS: Insulin Lispro 100 Units/ML 3 ML Vial SUBCUT SCH ×4 (08:35→21:22)
[2020-04-19] MEDS ORDERED: PIOGLITAZONE HCL 45 MG PO SCH (09:00)
[2020-04-19] MEDS ORDERED: SAXAGLIPTIN 5 MG PO SCH (09:00)
[2020-04-19] MEDS ORDERED: Hydrochlorothiazide 25 MG Tab PO SCH (09:00)
[2020-04-19] MEDS ORDERED: Losartan 25 MG Tab PO SCH (09:00)
[2020-04-19] MEDS ORDERED: HYDROPHILIC OINTMENT TP PRN (09:42)
[2020-04-19] MEDS ORDERED: Polyethylene Glycol 3350 Powder 17 GM Packet PO PRN (09:42)
--- NOTE | 2020-04-19 09:56 | PCM.PN ---
- General Info Date of Service: 04/19/20 Admission Dx/Problem (Free Text): Admission Diagnosis/Problem Admission Diagnosis/Problem Acute encephalopathy Subjective Update: Derian is a 84-year-old male with history of hypertension, type 2 diabetes brought to the ED EMS for evaluation of acting confused. He was admitted for acute encephalopathy. CT of the lumbar spine showed prominent posterior disc bulging at L4-L5 not causing significant central canal stenosis but causing moderate bilateral neural foraminal stenosis Patient seen and examined this morning. Chart reviewed. He is alert and awake. Oriented to time place and person. Answers questions appropriately. Denies any pain. No fever or chills. Night was uneventful. Functional Status: Reports: Pain Controlled - Review of Systems General: Reports: No Symptoms HEENT: Reports: No Symptoms Pulmonary: Reports: No Symptoms Cardiovascular: Reports: No Symptoms Gastrointestinal: Reports: No Symptoms Genitourinary: Reports: No Symptoms Musculoskeletal: Reports: No Symptoms Skin: Reports: No Symptoms Neurological: Reports: No Symptoms Psychiatric: Reports: No Symptoms - Patient Data Vitals - Most Recent: Last Vital Signs Temp 99.1 F 04/19/20 08:00 Pulse 71 04/19/20 08:00 Resp 18 04/19/20 08:00 BP 127/48 L 04/19/20 08:00 Pulse Ox 93 L 04/19/20 08:00 Weight - Most Recent: 156 lb 4.8 oz I&O - Last 24 Hours: Intake & Output 04/18/20 04/19/20 04/19/20 22:59 06:59 14:59 Intake Total 300 Balance 300 Lab Results Last 24 Hours: Laboratory Results - last 24 hr 04/18/20 04/18/20 04/18/20 Range/Units 19:56 19:57 20:05 WBC 15.2 H (5.0-10.0) 10^3/uL RBC 4.09 L (4.6-6.2) 10^6/uL Hgb 10.5 L D (14.0-18.0) g/dL Hct 31.2 L (40.0-54.0) % MCV 76.3 L D (80-100) fL MCH 25.7 L (27.0-34.0) pg MCHC 33.7 (33.0-35.0) g/dL Plt Count 169 (150-450) 10^3/uL Neut % (Auto) 91.0 H (42.2-75.2) % Lymph % (Auto) 3.9 L (20.5-50.1) % Kay % (Auto) 4.9 (2-8) % Eos % (Auto) 0.1 L (1.0-3.0) % Baso % (Auto) 0.1 (0.0-1.0) % PT (9.0-12.0) SEC INR (0.9-1.2) Sodium (136-145) mmol/L Potassium (3.5-5.1) mmol/L Chloride (98-107) mmol/L Carbon Dioxide (21-32) mmol/L Anion Gap (7-13) mEq/L BUN (7-18) mg/dL Creatinine (0.70-1.30) mg/dL Est Cr Clr Drug Dosing mL/min Estimated GFR (MDRD) BUN/Creatinine Ratio (No establ ref range) Glucose (74-99) mg/dL POC Glucose 347 H (83-110) mg/dl Lactic Acid (0.4-2.0) mmol/L Calcium (8.5-10.1) mg/dL Phosphorus (2.6-4.7) mg/dL Magnesium (1.8-2.4) mg/dL Total Bilirubin (0.2-1.0) mg/dL AST (15-37) U/L ALT (16-63) U/L Alkaline Phosphatase (46-116) U/L Troponin I (0.000-0.056) ng/mL B-Natriuretic Peptide (0-100) pg/ml Total Protein (6.4-8.2) g/dL Albumin (3.4-5.0) g/dL Globulin Albumin/Globulin Ratio Urine Color Yellow (YELLOW) Urine Appearance Clear (CLEAR) Urine pH 5.5 (5.0-9.0) Ur Specific [place] 1.010 (1.005-1.030) Urine Protein 30 H (NEGATIVE) Urine Glucose (UA) >=1000 H (NEGATIVE) Urine Ketones Negative (NEGATIVE) Urine Occult Blood Negative (NEGATIVE) Urine Nitrite Negative (NEGATIVE) Urine Bilirubin Negative (NEGATIVE) Urine Urobilinogen 0.2 (0.2-1.0) mg/dL Ur Leukocyte Esterase Negative (NEGATIVE) Urine RBC Not seen /HPF Urine WBC 0-5 (0-5/HPF) /HPF Ur Epithelial Cells Moderate H (NOT SEEN) /HPF Urine Bacteria Moderate H (0-FEW/HPF) /HPF Ethyl Alcohol (0) mg/dL Ketones SARS-CoV-2 RNA (JAMEL) (NEGATIVE) 04/18/20 04/18/20 04/18/20 Range/Units 20:05 20:05 20:05 WBC (5.0-10.0) 10^3/uL RBC (4.6-6.2) 10^6/uL Hgb (14.0-18.0) g/dL Hct (40.0-54.0) % MCV (80-100) fL MCH (27.0-34.0) pg MCHC (33.0-35.0) g/dL Plt Count (150-450) 10^3/uL Neut % (Auto) (42.2-75.2) % Lymph % (Auto) (20.5-50.1) % Kay % (Auto) (2-8) % Eos % (Auto) (1.0-3.0) % Baso % (Auto) (0.0-1.0) % PT 70.6 H D (9.0-12.0) SEC INR 7.6 H* (0.9-1.2) Sodium 128 L (136-145) mmol/L Potassium 4.4 (3.5-5.1) mmol/L Chloride 93 L (98-107) mmol/L Carbon Dioxide 24 (21-32) mmol/L Anion Gap 15.4 H (7-13) mEq/L BUN 23 H (7-18) mg/dL Creatinine 0.95 (0.70-1.30) mg/dL Est Cr Clr Drug Dosing 54.10 mL/min Estimated GFR (MDRD) > 60 BUN/Creatinine Ratio 24.2 (No establ ref range) Glucose 351 H (74-99) mg/dL POC Glucose (83-110) mg/dl Lactic Acid 1.4 (0.4-2.0) mmol/L Calcium 7.4 L (8.5-10.1) mg/dL Phosphorus (2.6-4.7) mg/dL Magnesium 2.1 (1.8-2.4) mg/dL Total Bilirubin 0.3 (0.2-1.0) mg/dL AST 87 H (15-37) U/L ALT 81 H (16-63) U/L Alkaline Phosphatase 205 H (46-116) U/L Troponin I (0.000-0.056) ng/mL B-Natriuretic Peptide (0-100) pg/ml Total Protein 5.5 L (6.4-8.2) g/dL Albumin 2.3 L (3.4-5.0) g/dL Globulin 3.2 Albumin/Globulin Ratio 0.72 Urine Color (YELLOW) Urine Appearance (CLEAR) Urine pH (5.0-9.0) Ur Specific [place] (1.005-1.030) Urine Protein (NEGATIVE) Urine Glucose (UA) (NEGATIVE) Urine Ketones (NEGATIVE) Urine Occult Blood (NEGATIVE) Urine Nitrite (NEGATIVE) Urine Bilirubin (NEGATIVE) Urine Urobilinogen (0.2-1.0) mg/dL Ur Leukocyte Esterase (NEGATIVE) Urine RBC /HPF Urine WBC (0-5/HPF) /HPF Ur Epithelial Cells (NOT SEEN) /HPF Urine Bacteria (0-FEW/HPF) /HPF Ethyl Alcohol 3 (0) mg/dL Ketones SARS-CoV-2 RNA (JAMEL) (NEGATIVE) 04/18/20 04/18/20 04/18/20 Range/Units 20:05 20:05 20:05 WBC (5.0-10.0) 10^3/uL RBC (4.6-6.2) 10^6/uL Hgb (14.0-18.0) g/dL Hct (40.0-54.0) % MCV (80-100) fL MCH (27.0-34.0) pg MCHC (33.0-35.0) g/dL Plt Count (150-450) 10^3/uL Neut % (Auto) (42.2-75.2) % Lymph % (Auto) (20.5-50.1) % Kay % (Auto) (2-8) % Eos % (Auto) (1.0-3.0) % Baso % (Auto) (0.0-1.0) % PT (9.0-12.0) SEC INR (0.9-1.2) Sodium (136-145) mmol/L Potassium (3.5-5.1) mmol/L Chloride (98-107) mmol/L Carbon Dioxide (21-32) mmol/L Anion Gap (7-13) mEq/L BUN (7-18) mg/dL Creatinine (0.70-1.30) mg/dL Est Cr Clr Drug Dosing mL/min Estimated GFR (MDRD) BUN/Creatinine Ratio (No establ ref range) Glucose (74-99) mg/dL POC Glucose (83-110) mg/dl Lactic Acid (0.4-2.0) mmol/L Calcium (8.5-10.1) mg/dL Phosphorus (2.6-4.7) mg/dL Magnesium (1.8-2.4) mg/dL Total Bilirubin (0.2-1.0) mg/dL AST (15-37) U/L ALT (16-63) U/L Alkaline Phosphatase (46-116) U/L Troponin I < 0.017 (0.000-0.056) ng/mL B-Natriuretic Peptide 593 H (0-100) pg/ml Total Protein (6.4-8.2) g/dL Albumin (3.4-5.0) g/dL Globulin Albumin/Globulin Ratio Urine Color (YELLOW) Urine Appearance (CLEAR) Urine pH (5.0-9.0) Ur Specific [place] (1.005-1.030) Urine Protein (NEGATIVE) Urine Glucose (UA) (NEGATIVE) Urine Ketones (NEGATIVE) Urine Occult Blood (NEGATIVE) Urine Nitrite (NEGATIVE) Urine Bilirubin (NEGATIVE) Urine Urobilinogen (0.2-1.0) mg/dL Ur Leukocyte Esterase (NEGATIVE) Urine RBC /HPF Urine WBC (0-5/HPF) /HPF Ur Epithelial Cells (NOT SEEN) /HPF Urine Bacteria (0-FEW/HPF) /HPF Ethyl Alcohol (0) mg/dL Ketones Negative SARS-CoV-2 RNA (JAMEL) (NEGATIVE) 04/18/20 04/18/20 04/18/20 Range/Units 20:05 21:24 22:05 WBC (5.0-10.0) 10^3/uL RBC (4.6-6.2) 10^6/uL Hgb (14.0-18.0) g/dL Hct (40.0-54.0) % MCV (80-100) fL MCH (27.0-34.0) pg MCHC (33.0-35.0) g/dL Plt Count (150-450) 10^3/uL Neut % (Auto) (42.2-75.2) % Lymph % (Auto) (20.5-50.1) % Kay % (Auto) (2-8) % Eos % (Auto) (1.0-3.0) % Baso % (Auto) (0.0-1.0) % PT (9.0-12.0) SEC INR (0.9-1.2) Sodium (136-145) mmol/L Potassium (3.5-5.1) mmol/L Chloride (98-107) mmol/L Carbon Dioxide (21-32) mmol/L Anion Gap (7-13) mEq/L BUN (7-18) mg/dL Creatinine (0.70-1.30) mg/dL Est Cr Clr Drug Dosing mL/min Estimated GFR (MDRD) BUN/Creatinine Ratio (No establ ref range) Glucose (74-99) mg/dL POC Glucose 329 H 210 H (83-110) mg/dl Lactic Acid (0.4-2.0) mmol/L Calcium (8.5-10.1) mg/dL Phosphorus 2.6 (2.6-4.7) mg/dL Magnesium (1.8-2.4) mg/dL Total Bilirubin (0.2-1.0) mg/dL AST (15-37) U/L ALT (16-63) U/L Alkaline Phosphatase (46-116) U/L Troponin I (0.000-0.056) ng/mL B-Natriuretic Peptide (0-100) pg/ml Total Protein (6.4-8.2) g/dL Albumin (3.4-5.0) g/dL Globulin Albumin/Globulin Ratio Urine Color (YELLOW) Urine Appearance (CLEAR) Urine pH (5.0-9.0) Ur Specific [place] (1.005-1.030) Urine Protein (NEGATIVE) Urine Glucose (UA) (NEGATIVE) Urine Ketones (NEGATIVE) Urine Occult Blood (NEGATIVE) Urine Nitrite (NEGATIVE) Urine Bilirubin (NEGATIVE) Urine Urobilinogen (0.2-1.0) mg/dL Ur Leukocyte Esterase (NEGATIVE) Urine RBC /HPF Urine WBC (0-5/HPF) /HPF Ur Epithelial Cells (NOT SEEN) /HPF Urine Bacteria (0-FEW/HPF) /HPF Ethyl Alcohol (0) mg/dL Ketones SARS-CoV-2 RNA (JAMEL) (NEGATIVE) 04/18/20 04/18/20 04/19/20 Range/Units 22:26 23:23 06:15 WBC 11.2 H (5.0-10.0) 10^3/uL RBC 3.76 L (4.6-6.2) 10^6/uL Hgb 10.0 L (14.0-18.0) g/dL Hct 29.1 L (40.0-54.0) % MCV 77.4 L (80-100) fL MCH 26.6 L (27.0-34.0) pg MCHC 34.4 (33.0-35.0) g/dL Plt Count 178 (150-450) 10^3/uL Neut % (Auto) (42.2-75.2) % Lymph % (Auto) (20.5-50.1) % Kay % (Auto) (2-8) % Eos % (Auto) (1.0-3.0) % Baso % (Auto) (0.0-1.0) % PT (9.0-12.0) SEC INR (0.9-1.2) Sodium (136-145) mmol/L Potassium (3.5-5.1) mmol/L Chloride (98-107) mmol/L Carbon Dioxide (21-32) mmol/L Anion Gap (7-13) mEq/L BUN (7-18) mg/dL Creatinine (0.70-1.30) mg/dL Est Cr Clr Drug Dosing mL/min Estimated GFR (MDRD) BUN/Creatinine Ratio (No establ ref range) Glucose (74-99) mg/dL POC Glucose 155 H (83-110) mg/dl Lactic Acid (0.4-2.0) mmol/L Calcium (8.5-10.1) mg/dL Phosphorus (2.6-4.7) mg/dL Magnesium (1.8-2.4) mg/dL Total Bilirubin (0.2-1.0) mg/dL AST (15-37) U/L ALT (16-63) U/L Alkaline Phosphatase (46-116) U/L Troponin I (0.000-0.056) ng/mL B-Natriuretic Peptide (0-100) pg/ml Total Protein (6.4-8.2) g/dL Albumin (3.4-5.0) g/dL Globulin Albumin/Globulin Ratio Urine Color (YELLOW) Urine Appearance (CLEAR) Urine pH (5.0-9.0) Ur Specific [place] (1.005-1.030) Urine Protein (NEGATIVE) Urine Glucose (UA) (NEGATIVE) Urine Ketones (NEGATIVE) Urine Occult Blood (NEGATIVE) Urine Nitrite (NEGATIVE) Urine Bilirubin (NEGATIVE) Urine Urobilinogen (0.2-1.0) mg/dL Ur Leukocyte Esterase (NEGATIVE) Urine RBC /HPF Urine WBC (0-5/HPF) /HPF Ur Epithelial Cells (NOT SEEN) /HPF Urine Bacteria (0-FEW/HPF) /HPF Ethyl Alcohol (0) mg/dL Ketones SARS-CoV-2 RNA (JAMEL) Negative (NEGATIVE) 04/19/20 04/19/20 Range/Units 06:15 07:45 WBC (5.0-10.0) 10^3/uL RBC (4.6-6.2) 10^6/uL Hgb (14.0-18.0) g/dL Hct (40.0-54.0) % MCV (80-100) fL MCH (27.0-34.0) pg MCHC (33.0-35.0) g/dL Plt Count (150-450) 10^3/uL Neut % (Auto) (42.2-75.2) % Lymph % (Auto) (20.5-50.1) % Kay % (Auto) (2-8) % Eos % (Auto) (1.0-3.0) % Baso % (Auto) (0.0-1.0) % PT 67.3 H (9.0-12.0) SEC INR 7.2 H* (0.9-1.2) Sodium (136-145) mmol/L Potassium (3.5-5.1) mmol/L Chloride (98-107) mmol/L Carbon Dioxide (21-32) mmol/L Anion Gap (7-13) mEq/L BUN (7-18) mg/dL Creatinine (0.70-1.30) mg/dL Est Cr Clr Drug Dosing mL/min Estimated GFR (MDRD) BUN/Creatinine Ratio (No establ ref range) Glucose (74-99) mg/dL POC Glucose 165 H (83-110) mg/dl Lactic Acid (0.4-2.0) mmol/L Calcium (8.5-10.1) mg/dL Phosphorus (2.6-4.7) mg/dL Magnesium (1.8-2.4) mg/dL Total Bilirubin (0.2-1.0) mg/dL AST (15-37) U/L ALT (16-63) U/L Alkaline Phosphatase (46-116) U/L Troponin I (0.000-0.056) ng/mL B-Natriuretic Peptide (0-100) pg/ml Total Protein (6.4-8.2) g/dL Albumin (3.4-5.0) g/dL Globulin Albumin/Globulin Ratio Urine Color (YELLOW) Urine Appearance (CLEAR) Urine pH (5.0-9.0) Ur Specific [place] (1.005-1.030) Urine Protein (NEGATIVE) Urine Glucose (UA) (NEGATIVE) Urine Ketones (NEGATIVE) Urine Occult Blood (NEGATIVE) Urine Nitrite (NEGATIVE) Urine Bilirubin (NEGATIVE) Urine Urobilinogen (0.2-1.0) mg/dL Ur Leukocyte Esterase (NEGATIVE) Urine RBC /HPF Urine WBC (0-5/HPF) /HPF Ur Epithelial Cells (NOT SEEN) /HPF Urine Bacteria (0-FEW/HPF) /HPF Ethyl Alcohol (0) mg/dL Ketones SARS-CoV-2 RNA (JAMEL) (NEGATIVE) Yosef Results Last 24 Hours: Microbiology 04/18/20 20:20 Anaerobic Blood Culture - Preliminary Blood - Arm, Right 04/18/20 20:05 Anaerobic Blood Culture - Final Blood - Venous Med Orders - Current: Current Medications Acetaminophen (Tylenol) 650 mg PO Q6H PRN PRN Reason: Pain (Mild 1-3)/fever Aspirin (Aspirin) 81 mg PO DAILY [facility] Dextrose/Water (Dextrose 50% In Water) 50 ml IV ASDIRECTED PRN PRN Reason: Hypoglycemia Docusate Sodium (Colace) 100 mg PO BID PRN PRN Reason: Constipation Ferrous Sulfate (Ferrous Sulfate) 325 mg PO Q48H [facility] Glipizide (Glucotrol Xl) 5 mg PO DAILY [facility] Glucagon (Glucagen) 1 mg IM ASDIRECTED PRN PRN Reason: Hypoglycemia Hydrochlorothiazide (Hydrochlorothiazide) 25 mg PO DAILY [facility] Sodium Chloride (Normal Saline) 1,000 mls @ 100 mls/hr IV ASDIRECTED [facility] Last Admin: 04/18/20 23:44 Dose: 100 mls/hr Documented by: Insulin Human Lispro (Humalog) 0 unit SUBCUT WITHMEALSANDBED [facility]; Protocol Last Admin: 04/19/20 08:35 Dose: 2 units Documented by: Levothyroxine Sodium (Synthroid) 50 mcg PO ACBREAKFAST [facility] Losartan Potassium (Cozaar) 25 mg PO DAILY [facility] Magnesium Hydroxide (Milk Of Magnesia) 30 ml PO Q12H PRN PRN Reason: Constipation Non-Formulary Medication (Calcium Citrate/Vitamin D3 [Calcium Citrate + D]) 1 tab PO BID [facility] Non-Formulary Medication (Dextrose [Glucose]) 16 gm PO ASDIRECTED [facility] Non-Formulary Medication (Insulin Detemir) 10 unit SQ WITHDINNER [facility] Non-Formulary Medication (Pioglitazone Hcl [Pioglitazone Hcl]) 45 mg PO DAILY [facility] Non-Formulary Medication (Saxagliptin [Onglyza]) 5 mg PO DAILY [facility] Non-Formulary Medication (Alogliptin Benzoate [Alogliptin]) 25 mg PO DAILY [facility] Non-Formulary Medication (Hydrophilic Ointment [Hydrophilic]) 410 gm TP ASDIRECTED PRN PRN Reason: Dryness Non-Formulary Medication (Losartan [Cozaar]) 100 mg PO DAILY [facility] Non-Formulary Medication (Multivitamin [Multivitamin]) 1 tab PO DAILY [facility] Ondansetron HCl (Zofran) 4 mg IVPUSH Q6H PRN PRN Reason: Nausea/Vomiting Oxycodone HCl (Oxycodone) 5 mg PO Q6H PRN PRN Reason: Pain (moderate 4-6) Last Admin: 04/18/20 23:24 Dose: 5 mg Documented by: Pantoprazole Sodium (Protonix) 40 mg PO DAILY [facility] Phytonadione (Mephyton) 5 mg PO ONETIME ONE Stop: 04/19/20 09:43 Polyethylene Glycol (Miralax) gm PO DAILY PRN PRN Reason: Constipation Tamsulosin HCl (Flomax) 0.8 mg PO BEDTIME [facility] Discontinued Medications Dextrose/Water (Dextrose 50% In Water) 50 ml IV ASDIRECTED PRN PRN Reason: Hypoglycemia Glucagon (Glucagen) 1 mg IM ASDIRECTED PRN PRN Reason: Hypoglycemia Insulin Human Regular (Humulin R) 10 unit IV ONETIME ONE Stop: 04/18/20 21:18 Last Admin: 04/18/20 21:26 Dose: 329 units Documented by: Phytonadione (Mephyton) 5 mg PO ONETIME ONE Stop: 04/18/20 23:05 Last Admin: 04/18/20 23:24 Dose: 5 mg Documented by: - Exam Quality Assessment: DVT Prophylaxis General: Alert, Oriented HEENT: Pupils Equal, Pupils Reactive, EOMI, Mucous Membr. Moist/[place] Neck: Supple Lungs: Clear to Auscultation, Normal Respiratory Effort Cardiovascular: Regular Rate, Regular Rhythm GI/Abdominal Exam: Normal Bowel Sounds, Soft, Non-Tender, No Organomegaly, No Distention, No Abnormal Bruit, No Mass, Pelvis Stable (Male) Exam: No Hernia, Normal Inspection, Normal Prostate, Circumcised Back Exam: Normal Inspection, Full Range of Motion Extremities: Normal Inspection, Normal Range of Motion, Non-Tender, No Pedal Edema, Normal Capillary Refill Skin: Warm, Dry, Intact Wound/Incisions: Healing Well Neurological: No New Focal Deficit Psy/Mental Status: Alert, Normal Affect, Normal Mood - Patient Data Lab Results Last 24 hrs: Laboratory Results - last 24 hr 04/18/20 04/18/20 04/18/20 Range/Units 19:56 19:57 20:05 WBC 15.2 H (5.0-10.0) 10^3/uL RBC 4.09 L (4.6-6.2) 10^6/uL Hgb 10.5 L D (14.0-18.0) g/dL Hct 31.2 L (40.0-54.0) % MCV 76.3 L D (80-100) fL MCH 25.7 L (27.0-34.0) pg MCHC 33.7 (33.0-35.0) g/dL Plt Count 169 (150-450) 10^3/uL Neut % (Auto) 91.0 H (42.2-75.2) % Lymph % (Auto) 3.9 L (20.5-50.1) % Kay % (Auto) 4.9 (2-8) % Eos % (Auto) 0.1 L (1.0-3.0) % Baso % (Auto) 0.1 (0.0-1.0) % PT (9.0-12.0) SEC INR (0.9-1.2) Sodium (136-145) mmol/L Potassium (3.5-5.1) mmol/L Chloride (98-107) mmol/L Carbon Dioxide (21-32) mmol/L Anion Gap (7-13) mEq/L BUN (7-18) mg/dL Creatinine (0.70-1.30) mg/dL Est Cr Clr Drug Dosing mL/min Estimated GFR (MDRD) BUN/Creatinine Ratio (No establ ref range) Glucose (74-99) mg/dL POC Glucose 347 H (83-110) mg/dl Lactic Acid (0.4-2.0) mmol/L Calcium (8.5-10.1) mg/dL Phosphorus (2.6-4.7) mg/dL Magnesium (1.8-2.4) mg/dL Total Bilirubin (0.2-1.0) mg/dL AST (15-37) U/L ALT (16-63) U/L Alkaline Phosphatase (46-116) U/L Troponin I (0.000-0.056) ng/mL B-Natriuretic Peptide (0-100) pg/ml Total Protein (6.4-8.2) g/dL Albumin (3.4-5.0) g/dL Globulin Albumin/Globulin Ratio Urine Color Yellow (YELLOW) Urine Appearance Clear (CLEAR) Urine pH 5.5 (5.0-9.0) Ur Specific [place] 1.010 (1.005-1.030) Urine Protein 30 H (NEGATIVE) Urine Glucose (UA) >=1000 H (NEGATIVE) Urine Ketones Negative (NEGATIVE) Urine Occult Blood Negative (NEGATIVE) Urine Nitrite Negative (NEGATIVE) Urine Bilirubin Negative (NEGATIVE) Urine Urobilinogen 0.2 (0.2-1.0) mg/dL Ur Leukocyte Esterase Negative (NEGATIVE) Urine RBC Not seen /HPF Urine WBC 0-5 (0-5/HPF) /HPF Ur Epithelial Cells Moderate H (NOT SEEN) /HPF Urine Bacteria Moderate H (0-FEW/HPF) /HPF Ethyl Alcohol (0) mg/dL Ketones SARS-CoV-2 RNA (JAMEL) (NEGATIVE) 04/18/20 04/18/20 04/18/20 Range/Units 20:05 20:05 20:05 WBC (5.0-10.0) 10^3/uL RBC (4.6-6.2) 10^6/uL Hgb (14.0-18.0) g/dL Hct (40.0-54.0) % MCV (80-100) fL MCH (27.0-34.0) pg MCHC (33.0-35.0) g/dL Plt Count (150-450) 10^3/uL Neut % (Auto) (42.2-75.2) % Lymph % (Auto) (20.5-50.1) % Kay % (Auto) (2-8) % Eos % (Auto) (1.0-3.0) % Baso % (Auto) (0.0-1.0) % PT 70.6 H D (9.0-12.0) SEC INR 7.6 H* (0.9-1.2) Sodium 128 L (136-145) mmol/L Potassium 4.4 (3.5-5.1) mmol/L Chloride 93 L (98-107) mmol/L Carbon Dioxide 24 (21-32) mmol/L Anion Gap 15.4 H (7-13) mEq/L BUN 23 H (7-18) mg/dL Creatinine 0.95 (0.70-1.30) mg/dL Est Cr Clr Drug Dosing 54.10 mL/min Estimated GFR (MDRD) > 60 BUN/Creatinine Ratio 24.2 (No establ ref range) Glucose 351 H (74-99) mg/dL POC Glucose (83-110) mg/dl Lactic Acid 1.4 (0.4-2.0) mmol/L Calcium 7.4 L (8.5-10.1) mg/dL Phosphorus (2.6-4.7) mg/dL Magnesium 2.1 (1.8-2.4) mg/dL Total Bilirubin 0.3 (0.2-1.0) mg/dL AST 87 H (15-37) U/L ALT 81 H (16-63) U/L Alkaline Phosphatase 205 H (46-116) U/L Troponin I (0.000-0.056) ng/mL B-Natriuretic Peptide (0-100) pg/ml Total Protein 5.5 L (6.4-8.2) g/dL Albumin 2.3 L (3.4-5.0) g/dL Globulin 3.2 Albumin/Globulin Ratio 0.72 Urine Color (YELLOW) Urine Appearance (CLEAR) Urine pH (5.0-9.0) Ur Specific [place] (1.005-1.030) Urine Protein (NEGATIVE) Urine Glucose (UA) (NEGATIVE) Urine Ketones (NEGATIVE) Urine Occult Blood (NEGATIVE) Urine Nitrite (NEGATIVE) Urine Bilirubin (NEGATIVE) Urine Urobilinogen (0.2-1.0) mg/dL Ur Leukocyte Esterase (NEGATIVE) Urine RBC /HPF Urine WBC (0-5/HPF) /HPF Ur Epithelial Cells (NOT SEEN) /HPF Urine Bacteria (0-FEW/HPF) /HPF Ethyl Alcohol 3 (0) mg/dL Ketones SARS-CoV-2 RNA (JAMEL) (NEGATIVE) 04/18/20 04/18/20 04/18/20 Range/Units 20:05 20:05 20:05 WBC (5.0-10.0) 10^3/uL RBC (4.6-6.2) 10^6/uL Hgb (14.0-18.0) g/dL Hct (40.0-54.0) % MCV (80-100) fL MCH (27.0-34.0) pg MCHC (33.0-35.0) g/dL Plt Count (150-450) 10^3/uL Neut % (Auto) (42.2-75.2) % Lymph % (Auto) (20.5-50.1) % Kay % (Auto) (2-8) % Eos % (Auto) (1.0-3.0) % Baso % (Auto) (0.0-1.0) % PT (9.0-12.0) SEC INR (0.9-1.2) Sodium (136-145) mmol/L Potassium (3.5-5.1) mmol/L Chloride (98-107) mmol/L Carbon Dioxide (21-32) mmol/L Anion Gap (7-13) mEq/L BUN (7-18) mg/dL Creatinine (0.70-1.30) mg/dL Est Cr Clr Drug Dosing mL/min Estimated GFR (MDRD) BUN/Creatinine Ratio (No establ ref range) Glucose (74-99) mg/dL POC Glucose (83-110) mg/dl Lactic Acid (0.4-2.0) mmol/L Calcium (8.5-10.1) mg/dL Phosphorus (2.6-4.7) mg/dL Magnesium (1.8-2.4) mg/dL Total Bilirubin (0.2-1.0) mg/dL AST (15-37) U/L ALT (16-63) U/L Alkaline Phosphatase (46-116) U/L Troponin I < 0.017 (0.000-0.056) ng/mL B-Natriuretic Peptide 593 H (0-100) pg/ml Total Protein (6.4-8.2) g/dL Albumin (3.4-5.0) g/dL Globulin Albumin/Globulin Ratio Urine Color (YELLOW) Urine Appearance (CLEAR) Urine pH (5.0-9.0) Ur Specific [place] (1.005-1.030) Urine Protein (NEGATIVE) Urine Glucose (UA) (NEGATIVE) Urine Ketones (NEGATIVE) Urine Occult Blood (NEGATIVE) Urine Nitrite (NEGATIVE) Urine Bilirubin (NEGATIVE) Urine Urobilinogen (0.2-1.0) mg/dL Ur Leukocyte Esterase (NEGATIVE) Urine RBC /HPF Urine WBC (0-5/HPF) /HPF Ur Epithelial Cells (NOT SEEN) /HPF Urine Bacteria (0-FEW/HPF) /HPF Ethyl Alcohol (0) mg/dL Ketones Negative SARS-CoV-2 RNA (JAMEL) (NEGATIVE) 04/18/20 04/18/20 04/18/20 Range/Units 20:05 21:24 22:05 WBC (5.0-10.0) 10^3/uL RBC (4.6-6.2) 10^6/uL Hgb (14.0-18.0) g/dL Hct (40.0-54.0) % MCV (80-100) fL MCH (27.0-34.0) pg MCHC (33.0-35.0) g/dL Plt Count (150-450) 10^3/uL Neut % (Auto) (42.2-75.2) % Lymph % (Auto) (20.5-50.1) % Kay % (Auto) (2-8) % Eos % (Auto) (1.0-3.0) % Baso % (Auto) (0.0-1.0) % PT (9.0-12.0) SEC INR (0.9-1.2) Sodium (136-145) mmol/L Potassium (3.5-5.1) mmol/L Chloride (98-107) mmol/L Carbon Dioxide (21-32) mmol/L Anion Gap (7-13) mEq/L BUN (7-18) mg/dL Creatinine (0.70-1.30) mg/dL Est Cr Clr Drug Dosing mL/min Estimated GFR (MDRD) BUN/Creatinine Ratio (No establ ref range) Glucose (74-99) mg/dL POC Glucose 329 H 210 H (83-110) mg/dl Lactic Acid (0.4-2.0) mmol/L Calcium (8.5-10.1) mg/dL Phosphorus 2.6 (2.6-4.7) mg/dL Magnesium (1.8-2.4) mg/dL Total Bilirubin (0.2-1.0) mg/dL AST (15-37) U/L ALT (16-63) U/L Alkaline Phosphatase (46-116) U/L Troponin I (0.000-0.056) ng/mL B-Natriuretic Peptide (0-100) pg/ml Total Protein (6.4-8.2) g/dL Albumin (3.4-5.0) g/dL Globulin Albumin/Globulin Ratio Urine Color (YELLOW) Urine Appearance (CLEAR) Urine pH (5.0-9.0) Ur Specific [place] (1.005-1.030) Urine Protein (NEGATIVE) Urine Glucose (UA) (NEGATIVE) Urine Ketones (NEGATIVE) Urine Occult Blood (NEGATIVE) Urine Nitrite (NEGATIVE) Urine Bilirubin (NEGATIVE) Urine Urobilinogen (0.2-1.0) mg/dL Ur Leukocyte Esterase (NEGATIVE) Urine RBC /HPF Urine WBC (0-5/HPF) /HPF Ur Epithelial Cells (NOT SEEN) /HPF Urine Bacteria (0-FEW/HPF) /HPF Ethyl Alcohol (0) mg/dL Ketones SARS-CoV-2 RNA (JAMEL) (NEGATIVE) 04/18/20 04/18/20 04/19/20 Range/Units 22:26 23:23 06:15 WBC 11.2 H (5.0-10.0) 10^3/uL RBC 3.76 L (4.6-6.2) 10^6/uL Hgb 10.0 L (14.0-18.0) g/dL Hct 29.1 L (40.0-54.0) % MCV 77.4 L (80-100) fL MCH 26.6 L (27.0-34.0) pg MCHC 34.4 (33.0-35.0) g/dL Plt Count 178 (150-450) 10^3/uL Neut % (Auto) (42.2-75.2) % Lymph % (Auto) (20.5-50.1) % Kay % (Auto) (2-8) % Eos % (Auto) (1.0-3.0) % Baso % (Auto) (0.0-1.0) % PT (9.0-12.0) SEC INR (0.9-1.2) Sodium (136-145) mmol/L Potassium (3.5-5.1) mmol/L Chloride (98-107) mmol/L Carbon Dioxide (21-32) mmol/L Anion Gap (7-13) mEq/L BUN (7-18) mg/dL Creatinine (0.70-1.30) mg/dL Est Cr Clr Drug Dosing mL/min Estimated GFR (MDRD) BUN/Creatinine Ratio (No establ ref range) Glucose (74-99) mg/dL POC Glucose 155 H (83-110) mg/dl Lactic Acid (0.4-2.0) mmol/L Calcium (8.5-10.1) mg/dL Phosphorus (2.6-4.7) mg/dL Magnesium (1.8-2.4) mg/dL Total Bilirubin (0.2-1.0) mg/dL AST (15-37) U/L ALT (16-63) U/L Alkaline Phosphatase (46-116) U/L Troponin I (0.000-0.056) ng/mL B-Natriuretic Peptide (0-100) pg/ml Total Protein (6.4-8.2) g/dL Albumin (3.4-5.0) g/dL Globulin Albumin/Globulin Ratio Urine Color (YELLOW) Urine Appearance (CLEAR) Urine pH (5.0-9.0) Ur Specific [place] (1.005-1.030) Urine Protein (NEGATIVE) Urine Glucose (UA) (NEGATIVE) Urine Ketones (NEGATIVE) Urine Occult Blood (NEGATIVE) Urine Nitrite (NEGATIVE) Urine Bilirubin (NEGATIVE) Urine Urobilinogen (0.2-1.0) mg/dL Ur Leukocyte Esterase (NEGATIVE) Urine RBC /HPF Urine WBC (0-5/HPF) /HPF Ur Epithelial Cells (NOT SEEN) /HPF Urine Bacteria (0-FEW/HPF) /HPF Ethyl Alcohol (0) mg/dL Ketones SARS-CoV-2 RNA (JAMEL) Negative (NEGATIVE) 04/19/20 04/19/20 Range/Units 06:15 07:45 WBC (5.0-10.0) 10^3/uL RBC (4.6-6.2) 10^6/uL Hgb (14.0-18.0) g/dL Hct (40.0-54.0) % MCV (80-100) fL MCH (27.0-34.0) pg MCHC (33.0-35.0) g/dL Plt Count (150-450) 10^3/uL Neut % (Auto) (42.2-75.2) % Lymph % (Auto) (20.5-50.1) % Kay % (Auto) (2-8) % Eos % (Auto) (1.0-3.0) % Baso % (Auto) (0.0-1.0) % PT 67.3 H (9.0-12.0) SEC INR 7.2 H* (0.9-1.2) Sodium (136-145) mmol/L Potassium (3.5-5.1) mmol/L Chloride (98-107) mmol/L Carbon Dioxide (21-32) mmol/L Anion Gap (7-13) mEq/L BUN (7-18) mg/dL Creatinine (0.70-1.30) mg/dL Est Cr Clr Drug Dosing mL/min Estimated GFR (MDRD) BUN/Creatinine Ratio (No establ ref range) Glucose (74-99) mg/dL POC Glucose 165 H (83-110) mg/dl Lactic Acid (0.4-2.0) mmol/L Calcium (8.5-10.1) mg/dL Phosphorus (2.6-4.7) mg/dL Magnesium (1.8-2.4) mg/dL Total Bilirubin (0.2-1.0) mg/dL AST (15-37) U/L ALT (16-63) U/L Alkaline Phosphatase (46-116) U/L Troponin I (0.000-0.056) ng/mL B-Natriuretic Peptide (0-100) pg/ml Total Protein (6.4-8.2) g/dL Albumin (3.4-5.0) g/dL Globulin Albumin/Globulin Ratio Urine Color (YELLOW) Urine Appearance (CLEAR) Urine pH (5.0-9.0) Ur Specific [place] (1.005-1.030) Urine Protein (NEGATIVE) Urine Glucose (UA) (NEGATIVE) Urine Ketones (NEGATIVE) Urine Occult Blood (NEGATIVE) Urine Nitrite (NEGATIVE) Urine Bilirubin (NEGATIVE) Urine Urobilinogen (0.2-1.0) mg/dL Ur Leukocyte Esterase (NEGATIVE) Urine RBC /HPF Urine WBC (0-5/HPF) /HPF Ur Epithelial Cells (NOT SEEN) /HPF Urine Bacteria (0-FEW/HPF) /HPF Ethyl Alcohol (0) mg/dL Ketones SARS-CoV-2 RNA (JAMEL) (NEGATIVE) Result Diagrams: 04/19/20 06:15 04/18/20 20:05 Yosef Results Last 24 hrs: Microbiology 04/18/20 20:20 Anaerobic Blood Culture - Preliminary Blood - Arm, Right 04/18/20 20:05 Anaerobic Blood Culture - Final Blood - Venous Sepsis Event Note - Evaluation Sepsis Screening Result: No Definite Risk - Focused Exam Vital Signs: Vital Signs Temp Pulse Resp BP BP Pulse Ox 04/19/20 08:00 99.1 F 71 18 127/48 L 93 L 04/19/20 04:00 98.4 F 86 14 132/57 L 95 04/18/20 22:32 97.8 F 86 14 136/68 144/70 H 95 - Problem List & Annotations (1) Leukoaraiosis SNOMED Code(s): 31153349 Code(s): I67.81 - ACUTE CEREBROVASCULAR INSUFFICIENCY Status: Acute Current Visit: Yes (2) Chronic anemia SNOMED Code(s): 156878311 Code(s): D64.9 - ANEMIA, UNSPECIFIED Status: Acute Current Visit: Yes (3) Uncontrolled type 2 diabetes mellitus SNOMED Code(s): 295708731, 164876305 Code(s): E11.65 - TYPE 2 DIABETES MELLITUS WITH HYPERGLYCEMIA Status: Acute Current Visit: Yes (4) Hepatitis, alcoholic SNOMED Code(s): 661484115 Code(s): K70.10 - ALCOHOLIC HEPATITIS WITHOUT ASCITES Status: Acute Current Visit: Yes (5) SIRS without infection with organ dysfunction SNOMED Code(s): 047060631858473, 121441277231872 Code(s): R65.11 - SIRS OF NON-INFECTIOUS ORIGIN W ACUTE ORGAN DYSFUNCTION Status: Acute Current Visit: Yes (6) Elevated brain natriuretic peptide (BNP) level SNOMED Code(s): 905346636, 067003589 Code(s): R79.89 - OTHER SPECIFIED ABNORMAL FINDINGS OF BLOOD CHEMISTRY Status: Acute Current Visit: Yes (7) Hypoglycemia SNOMED Code(s): 077307351 Code(s): E16.2 - HYPOGLYCEMIA, UNSPECIFIED Status: Acute Current Visit: No (8) Hyponatremia SNOMED Code(s): 21487844 Code(s): E87.1 - HYPO-OSMOLALITY AND HYPONATREMIA Status: Acute Current Visit: Yes (9) Lumbar disc herniation SNOMED Code(s): 490969809 Code(s): M51.26 - OTHER INTERVERTEBRAL DISC DISPLACEMENT, LUMBAR REGION Status: Acute Current Visit: Yes - Problem List Review Problem List Initiated/Reviewed/Updated: Yes - My Orders Last 24 Hours: My Active Orders 04/18/20 20:05 PROCALCITONIN [REF] Routine 04/18/20 22:55 Ambulate [RC] ASDIRECTED Oxygen Therapy [RC] PRN VTE/DVT Education [RC] 08,20 Vital Signs [RC] 00,04,08,12,16,20 OT Evaluation and Treatment [CONS] Routine PT Evaluation and Treatment [CONS] Routine Acetaminophen [TylenoL] 650 mg PO Q6H PRN Docusate Sodium [Colace] 100 mg PO BID PRN Magnesium Hydroxide [Milk of Magnesia] 30 ml PO Q12H PRN Ondansetron [Zofran] 4 mg IVPUSH Q6H PRN oxyCODONE 5 mg PO Q6H PRN Anticoagulation Contraindications VTE [AST] Per Unit Routine Resuscitation Status Routine 04/18/20 22:56 Intake and Output [RC] 06,14,22 Notify Provider Vital Signs [RC] ASDIRECTED 04/18/20 23:23 CALCIUM, IONIZED, SERUM [REF] Routine 04/18/20 23:29 Dextrose 50% in Water 50 ml IV ASDIRECTED PRN Glucagon,Human Recombinant [GlucaGen] 1 mg IM ASDIRECTED PRN 04/18/20 23:30 Blood Glucose Check, Bedside [RC] QIDACANDBED Dextrose [Glucose] 16 gm PO ASDIRECTED Sodium Chloride 0.9% [Normal Saline] 1,000 ml IV ASDIRECTED 04/19/20 08:00 Insulin Lispro [HumaLOG] See Protocol SUBCUT WITHMEALSANDBED 04/19/20 09:00 Calcium Citrate/Vitamin D3 [Calcium Citrate + D] 1 tab PO BID Losartan [Cozaar] 25 mg PO DAILY Pioglitazone HCl [Pioglitazone HCl] 45 mg PO DAILY Saxagliptin [Onglyza] 5 mg PO DAILY hydroCHLOROthiazide 25 mg PO DAILY 04/19/20 09:42 Hydrophilic Ointment [Hydrophilic] 410 gm TP ASDIRECTED PRN Phytonadione [Mephyton] 5 mg PO ONETIME ONE polyethylene glycoL 3350 [MiraLAX] DOSE gm PO DAILY PRN 04/19/20 09:45 Ferrous Sulfate 325 mg PO Q48H 04/19/20 09:51 CULTURE BLOOD [BC] Stat CULTURE BLOOD [BC] Stat Blood Culture x2 Reflex Set [OM.PC] Stat 04/19/20 18:00 Insulin Detemir 10 unit SQ WITHDINNER 04/19/20 21:00 Tamsulosin [Flomax] 0.8 mg PO BEDTIME 04/20/20 05:11 COMPREHENSIVE METABOLIC PN,CMP [CHEM] AM INR,PT,PROTHROMBIN TIME [COAG] AM 04/20/20 06:00 Levothyroxine [Synthroid] 50 mcg PO ACBREAKFAST 04/20/20 09:00 Alogliptin Benzoate [Alogliptin] 25 mg PO DAILY Aspirin 81 mg PO DAILY Losartan [Cozaar] 100 mg PO DAILY Multivitamin [Multivitamin] 1 tab PO DAILY Pantoprazole [ProTONIX] 40 mg PO DAILY glipiZIDE [Glucotrol XL] 5 mg PO DAILY 04/21/20 05:11 COMPREHENSIVE METABOLIC PN,CMP [CHEM] AM INR,PT,PROTHROMBIN TIME [COAG] AM 04/22/20 05:11 COMPREHENSIVE METABOLIC PN,CMP [CHEM] AM 04/23/20 05:11 COMPREHENSIVE METABOLIC PN,CMP [CHEM] AM - Plan Plan:: #Acute encephalopathy likely metabolic Improved Monitor mental status #Supratherapeutic INR due to chronic anticoagulation with warfarin. INR 7.6 on admit Status post give 5 mg Vit K Coumadin this morning 7.2 We will give 5 mg of vitamin K Continue to hold Coumadin Daily INR #Bacteremia Blood cells on admit positive for gram-positive cocci 1 set out of 2. This is likely to be contamination Repeat blood cultures #SIRs without infection Resolved IVF #Uncontrolled Type II DM Serum glucose improved Continue Levemir 10 units qhs, Pioglitazone and saxagliptin Sliding scale insulin Accu-cheks Hypoglycemic protocol #HTN Controlled Continue home medications Monitor BP #Hepatitis likely due to alcohol abuse Monitor LFTs #Elevated BNP Patient euvolemic on exam Echo when available #Hypocalcemia Improved #Acute on chronic back pain due to L4-L5 disc herniation CT of lumbar bones showing prominent disc bulging at L4-L5 Oxycodone prn Lidocaine patch PT/OT #Diet Consistent carb #CODE STATUS Full
[2020-04-19] MEDS ORDERED: Phytonadione 5 MG Tab PO ONE (10:45)
[2020-04-19] MEDS: Lidocaine 5% 700 MG Patch TRDERM SCH (12:37)
[2020-04-19] MEDS: CALCIUM CITRATE PO SCH ×2 (13:14→21:26)
[2020-04-19] MEDS: VITAMIN D3 PO SCH ×2 (13:14→21:26)
[2020-04-19] MEDS: oxyCODONE 5 MG Tab PO PRN ×2 (13:20→21:25)
[2020-04-19] MEDS: Piperacillin/Tazobactam 3.375 GM in Sodium Chloride 0.9% 100 ML IV SCH ×2 (13:22→17:15)
[2020-04-19] MEDS: Insulin Glarg,Human.Rec.Analog 100 Unit/ML SUBCUT SCH (17:23)
[2020-04-19] MEDS: Tamsulosin 0.4 MG Cap.ER PO SCH (21:25)
[2020-04-20] MEDS: Piperacillin/Tazobactam 3.375 GM in Sodium Chloride 0.9% 100 ML IV SCH ×4 (00:20→17:28)
[2020-04-20] MEDS: Levothyroxine 50 MCG Tab PO SCH (06:00)
[2020-04-20] MEDS: Pantoprazole 40 MG Tab.CR PO SCH (06:00)
[2020-04-20] MEDS ORDERED: glipiZIDE 5 MG Tab PO SCH (06:00)
[2020-04-20 06:54] LABS: ANION GAP 15.3 mEq/L (7-13); CHLORIDE,CL 94 mmol/L (98-107); SODIUM,NA 129 mmol/L (136-145)
[2020-04-20] MEDS ORDERED: Ferrous Sulfate 325 MG Tab PO SCH (08:00)
[2020-04-20] MEDS: glipiZIDE 5 MG Tab PO SCH (09:17)
[2020-04-20] MEDS: Multivitamins,Therapeutic Tab PO SCH (09:18)
[2020-04-20] MEDS: Aspirin 81 MG Tab.EC PO SCH (09:18)
[2020-04-20] MEDS: Losartan 50 MG Tab PO SCH (09:18)
[2020-04-20] MEDS: oxyCODONE 5 MG Tab PO PRN (09:19)
[2020-04-20] MEDS: Lidocaine 5% 700 MG Patch TRDERM SCH (09:19)
[2020-04-20] MEDS: Insulin Lispro 100 Units/ML 3 ML Vial SUBCUT SCH ×4 (09:20→20:37)
[2020-04-20] MEDS: CALCIUM CITRATE PO SCH ×2 (09:23→20:39)
[2020-04-20] MEDS: VITAMIN D3 PO SCH ×2 (09:23→20:39)
[2020-04-20] MEDS: ALOGLIPTIN BENZOATE 25 MG PO SCH (09:23)
[2020-04-20] MEDS ORDERED: Iopamidol 612 MG/ML 100 ML Bottle IVPUSH ONE (10:26)
--- NOTE | 2020-04-20 11:20 | PCM.PN ---
- General Info Date of Service: 04/20/20 Admission Dx/Problem (Free Text): Admission Diagnosis/Problem Admission Diagnosis/Problem Acute encephalopathy/bacteremia Subjective Update: Derian is a 84-year-old male with history of hypertension, type 2 diabetes brought to the ED EMS for evaluation of acting confused. He was admitted for acute encephalopathy, acute on chronic back pain. CT of the lumbar spine showed prominent posterior disc bulging at L4-L5 not causing significant central canal stenosis but causing moderate bilateral neural foraminal stenosis. Blood culture on admit was positive for gram-positive cocci. Repeat blood cultures came out positive. Patient was started on broad-spectrum antibiotic with IV Vanco and Zosyn. Echo was done yesterday. Reports pending. This morning he was seen and examined. Chart reviewed. He had fever of 100.1 F overnight. Other vitals unremarkable. Back pain improved. No overnight events. Repeat blood culture from yesterday came back positive to set out of 2. Patient sent for CT chest abdomen and pelvis with contrast. Functional Status: Reports: Pain Controlled - Review of Systems General: Reports: No Symptoms HEENT: Reports: No Symptoms Pulmonary: Reports: No Symptoms Cardiovascular: Reports: No Symptoms Gastrointestinal: Reports: No Symptoms Genitourinary: Reports: No Symptoms Musculoskeletal: Reports: No Symptoms Skin: Reports: No Symptoms Neurological: Reports: No Symptoms Psychiatric: Reports: No Symptoms - Patient Data Vitals - Most Recent: Last Vital Signs Temp 98.5 F 04/20/20 00:00 Pulse 69 04/20/20 00:00 Resp 16 04/20/20 00:00 BP 115/52 L 04/20/20 09:18 Pulse Ox 95 04/20/20 00:00 Weight - Most Recent: 156 lb 4.8 oz I&O - Last 24 Hours: Intake & Output 04/19/20 04/20/20 04/20/20 22:59 06:59 14:59 Intake Total 490 Output Total 100 200 Balance 390 -200 Lab Results Last 24 Hours: Laboratory Results - last 24 hr 04/18/20 04/19/20 04/19/20 Range/Units 20:05 11:56 16:45 PT (9.0-12.0) SEC INR (0.9-1.2) Sodium (136-145) mmol/L Potassium (3.5-5.1) mmol/L Chloride (98-107) mmol/L Carbon Dioxide (21-32) mmol/L Anion Gap (7-13) mEq/L BUN (7-18) mg/dL Creatinine (0.70-1.30) mg/dL Est Cr Clr Drug Dosing mL/min Estimated GFR (MDRD) BUN/Creatinine Ratio (No establ ref range) Glucose (74-99) mg/dL POC Glucose 200 H 209 H (83-110) mg/dl Calcium (8.5-10.1) mg/dL Total Bilirubin (0.2-1.0) mg/dL AST (15-37) U/L ALT (16-63) U/L Alkaline Phosphatase (46-116) U/L Total Protein (6.4-8.2) g/dL Albumin (3.4-5.0) g/dL Globulin Albumin/Globulin Ratio Procalcitonin 0.46 H ng/mL 04/19/20 04/19/20 04/20/20 Range/Units 16:58 20:37 06:00 PT 38.9 H D 22.4 H D (9.0-12.0) SEC INR 4.2 H 2.4 H (0.9-1.2) Sodium (136-145) mmol/L Potassium (3.5-5.1) mmol/L Chloride (98-107) mmol/L Carbon Dioxide (21-32) mmol/L Anion Gap (7-13) mEq/L BUN (7-18) mg/dL Creatinine (0.70-1.30) mg/dL Est Cr Clr Drug Dosing mL/min Estimated GFR (MDRD) BUN/Creatinine Ratio (No establ ref range) Glucose (74-99) mg/dL POC Glucose 167 H (83-110) mg/dl Calcium (8.5-10.1) mg/dL Total Bilirubin (0.2-1.0) mg/dL AST (15-37) U/L ALT (16-63) U/L Alkaline Phosphatase (46-116) U/L Total Protein (6.4-8.2) g/dL Albumin (3.4-5.0) g/dL Globulin Albumin/Globulin Ratio Procalcitonin ng/mL 04/20/20 04/20/20 Range/Units 06:00 07:52 PT (9.0-12.0) SEC INR (0.9-1.2) Sodium 129 L (136-145) mmol/L Potassium 4.3 (3.5-5.1) mmol/L Chloride 94 L (98-107) mmol/L Carbon Dioxide 24 (21-32) mmol/L Anion Gap 15.3 H (7-13) mEq/L BUN 20 H (7-18) mg/dL Creatinine 0.91 (0.70-1.30) mg/dL Est Cr Clr Drug Dosing 56.48 mL/min Estimated GFR (MDRD) > 60 BUN/Creatinine Ratio 22.0 (No establ ref range) Glucose 184 H (74-99) mg/dL POC Glucose 196 H (83-110) mg/dl Calcium 7.4 L (8.5-10.1) mg/dL Total Bilirubin 1.1 H (0.2-1.0) mg/dL AST 143 H (15-37) U/L ALT 129 H (16-63) U/L Alkaline Phosphatase 177 H (46-116) U/L Total Protein 5.0 L (6.4-8.2) g/dL Albumin 1.9 L (3.4-5.0) g/dL Globulin 3.1 Albumin/Globulin Ratio 0.61 Procalcitonin ng/mL Yosef Results Last 24 Hours: Microbiology 04/18/20 20:05 Aerobic Blood Culture - Preliminary Blood - Venous Anaerobic Blood Culture - Final 04/18/20 20:20 Aerobic Blood Culture - Preliminary Blood - Arm, Right Anaerobic Blood Culture - Preliminary 04/19/20 11:50 Aerobic Blood Culture - Preliminary Blood - Arm, Right Anaerobic Blood Culture - Final 04/19/20 11:55 Aerobic Blood Culture - Preliminary Blood - Arm, Left Anaerobic Blood Culture - Preliminary Med Orders - Current: Current Medications Acetaminophen (Tylenol) 650 mg PO Q6H PRN PRN Reason: Pain (Mild 1-3)/fever Aspirin (Halfprin) 81 mg PO DAILY [facility] Last Admin: 04/20/20 09:18 Dose: 81 mg Documented by: Dextrose/Water (Dextrose 50% In Water) 50 ml IV ASDIRECTED PRN PRN Reason: Hypoglycemia Docusate Sodium (Colace) 100 mg PO BID PRN PRN Reason: Constipation Ferrous Sulfate (Ferrous Sulfate) 325 mg PO Q48H [facility] Last Admin: 04/20/20 09:16 Dose: 325 mg Documented by: Glipizide (Glucotrol) 5 mg PO DAILY@0800 [facility] Last Admin: 04/20/20 09:17 Dose: 5 mg Documented by: Glucagon (Glucagen) 1 mg IM ASDIRECTED PRN PRN Reason: Hypoglycemia Piperacillin Sod/Tazobactam (Sod 3.375 gm/ Sodium Chloride) 100 mls @ 200 mls/hr IV Q6HR [facility] Last Admin: 04/20/20 06:02 Dose: 200 mls/hr Documented by: Vancomycin HCl 1 gm/ Sodium (Chloride) 250 mls @ 166.667 mls/hr IV Q8H [facility] Last Admin: 04/20/20 05:54 Dose: 166.667 mls/hr Documented by: Insulin Glargine (Lantus) 10 unit SUBCUT WITHDINNER [facility] Last Admin: 04/19/20 17:23 Dose: 10 units Documented by: Insulin Human Lispro (Humalog) 0 unit SUBCUT WITHMEALSANDBED [facility]; Protocol Last Admin: 04/20/20 09:20 Dose: 2 units Documented by: Levothyroxine Sodium (Synthroid) 50 mcg PO ACBREAKFAST [facility] Last Admin: 04/20/20 06:00 Dose: 50 mcg Documented by: Lidocaine (Lidoderm 5%) 700 mg TRDERM DAILY [facility] Last Admin: 04/20/20 09:19 Dose: 700 mg Documented by: Losartan Potassium (Cozaar) 100 mg PO DAILY [facility] Last Admin: 04/20/20 09:18 Dose: 100 mg Documented by: Magnesium Hydroxide (Milk Of Magnesia) 30 ml PO Q12H PRN PRN Reason: Constipation Miscellaneous Information (Remove Patch) 1 ea TRDERM BEDTIME [facility] Last Admin: 04/19/20 21:32 Dose: 1 ea Documented by: Multivitamins (Thera) 1 each PO DAILY [facility] Last Admin: 04/20/20 09:18 Dose: 1 each Documented by: Calcium Citrate/Vitamin D3 315 Mg/250 Iunits 1 tab PO BID [facility] Last Admin: 04/20/20 09:23 Dose: 1 tab Documented by: Alogliptin Benzoate (25 Mg Pt Own Med) 25 mg PO DAILY [facility] Last Admin: 04/20/20 09:23 Dose: 25 mg Documented by: Ondansetron HCl (Zofran) 4 mg IVPUSH Q6H PRN PRN Reason: Nausea/Vomiting Oxycodone HCl (Oxycodone) 5 mg PO Q6H PRN PRN Reason: Pain (moderate 4-6) Last Admin: 04/20/20 09:19 Dose: 5 mg Documented by: Pantoprazole Sodium (Protonix) 40 mg PO ACBREAKFAST [facility] Last Admin: 04/20/20 06:00 Dose: 40 mg Documented by: Polyethylene Glycol (Miralax) 17 gm PO DAILY PRN PRN Reason: Constipation Tamsulosin HCl (Flomax) 0.8 mg PO BEDTIME [facility] Last Admin: 04/19/20 21:25 Dose: 0.8 mg Documented by: Vancomycin HCl (Pharmacy To Dose - Vancomycin) 1 dose .XX ASDIRECTED [facility] Warfarin Sodium (Pharmacy To Dose - Warfarin) 1 dose .XX ASDIRECTED [facility] Warfarin Sodium (Coumadin) 2.5 mg PO ONETIME ONE Stop: 04/20/20 14:01 Discontinued Medications Dextrose/Water (Dextrose 50% In Water) 50 ml IV ASDIRECTED PRN PRN Reason: Hypoglycemia Glipizide (Glucotrol) 5 mg PO ACBREAKFAST [facility] Last Admin: 04/20/20 06:02 Dose: Not Given Documented by: Glucagon (Glucagen) 1 mg IM ASDIRECTED PRN PRN Reason: Hypoglycemia Sodium Chloride (Normal Saline) 1,000 mls @ 100 mls/hr IV ASDIRECTED [facility] Last Admin: 04/18/20 23:44 Dose: 100 mls/hr Documented by: Insulin Human Regular (Humulin R) 10 unit IV ONETIME ONE Stop: 04/18/20 21:18 Last Admin: 04/18/20 21:26 Dose: 329 units Documented by: Iopamidol (Isovue-300 (61%)) 100 ml IVPUSH ONETIME ONE Stop: 04/20/20 10:27 Non-Formulary Medication (Dextrose [Glucose]) 16 gm PO ASDIRECTED [facility] Non-Formulary Medication (Hydrophilic Ointment [Hydrophilic]) 410 gm TP ASDIRECTED PRN PRN Reason: Dryness Phytonadione (Mephyton) 5 mg PO ONETIME ONE Stop: 04/18/20 23:05 Last Admin: 04/18/20 23:24 Dose: 5 mg Documented by: Phytonadione (Mephyton) 5 mg PO ONETIME ONE Stop: 04/19/20 10:46 Last Admin: 04/19/20 11:26 Dose: 5 mg Documented by: - Exam Quality Assessment: DVT Prophylaxis General: Alert, Oriented HEENT: Pupils Equal, Pupils Reactive, EOMI, Mucous Membr. Moist/[place] Neck: Supple Lungs: Clear to Auscultation, Normal Respiratory Effort Cardiovascular: Regular Rate, Regular Rhythm GI/Abdominal Exam: Normal Bowel Sounds, Soft, Non-Tender, No Organomegaly, No Distention, No Abnormal Bruit, No Mass, Pelvis Stable (Male) Exam: No Hernia, Normal Inspection, Normal Prostate, Circumcised Back Exam: Normal Inspection, Full Range of Motion Extremities: Normal Inspection, Normal Range of Motion, Non-Tender, No Pedal Edema, Normal Capillary Refill Skin: Warm, Dry, Intact Wound/Incisions: Healing Well Neurological: No New Focal Deficit Psy/Mental Status: Alert, Normal Affect, Normal Mood - Patient Data Lab Results Last 24 hrs: Laboratory Results - last 24 hr 04/18/20 04/19/20 04/19/20 Range/Units 20:05 11:56 16:45 PT (9.0-12.0) SEC INR (0.9-1.2) Sodium (136-145) mmol/L Potassium (3.5-5.1) mmol/L Chloride (98-107) mmol/L Carbon Dioxide (21-32) mmol/L Anion Gap (7-13) mEq/L BUN (7-18) mg/dL Creatinine (0.70-1.30) mg/dL Est Cr Clr Drug Dosing mL/min Estimated GFR (MDRD) BUN/Creatinine Ratio (No establ ref range) Glucose (74-99) mg/dL POC Glucose 200 H 209 H (83-110) mg/dl Calcium (8.5-10.1) mg/dL Total Bilirubin (0.2-1.0) mg/dL AST (15-37) U/L ALT (16-63) U/L Alkaline Phosphatase (46-116) U/L Total Protein (6.4-8.2) g/dL Albumin (3.4-5.0) g/dL Globulin Albumin/Globulin Ratio Procalcitonin 0.46 H ng/mL 04/19/20 04/19/20 04/20/20 Range/Units 16:58 20:37 06:00 PT 38.9 H D 22.4 H D (9.0-12.0) SEC INR 4.2 H 2.4 H (0.9-1.2) Sodium (136-145) mmol/L Potassium (3.5-5.1) mmol/L Chloride (98-107) mmol/L Carbon Dioxide (21-32) mmol/L Anion Gap (7-13) mEq/L BUN (7-18) mg/dL Creatinine (0.70-1.30) mg/dL Est Cr Clr Drug Dosing mL/min Estimated GFR (MDRD) BUN/Creatinine Ratio (No establ ref range) Glucose (74-99) mg/dL POC Glucose 167 H (83-110) mg/dl Calcium (8.5-10.1) mg/dL Total Bilirubin (0.2-1.0) mg/dL AST (15-37) U/L ALT (16-63) U/L Alkaline Phosphatase (46-116) U/L Total Protein (6.4-8.2) g/dL Albumin (3.4-5.0) g/dL Globulin Albumin/Globulin Ratio Procalcitonin ng/mL 04/20/20 04/20/20 Range/Units 06:00 07:52 PT (9.0-12.0) SEC INR (0.9-1.2) Sodium 129 L (136-145) mmol/L Potassium 4.3 (3.5-5.1) mmol/L Chloride 94 L (98-107) mmol/L Carbon Dioxide 24 (21-32) mmol/L Anion Gap 15.3 H (7-13) mEq/L BUN 20 H (7-18) mg/dL Creatinine 0.91 (0.70-1.30) mg/dL Est Cr Clr Drug Dosing 56.48 mL/min Estimated GFR (MDRD) > 60 BUN/Creatinine Ratio 22.0 (No establ ref range) Glucose 184 H (74-99) mg/dL POC Glucose 196 H (83-110) mg/dl Calcium 7.4 L (8.5-10.1) mg/dL Total Bilirubin 1.1 H (0.2-1.0) mg/dL AST 143 H (15-37) U/L ALT 129 H (16-63) U/L Alkaline Phosphatase 177 H (46-116) U/L Total Protein 5.0 L (6.4-8.2) g/dL Albumin 1.9 L (3.4-5.0) g/dL Globulin 3.1 Albumin/Globulin Ratio 0.61 Procalcitonin ng/mL Result Diagrams: 04/19/20 06:15 04/20/20 06:00 Yosef Results Last 24 hrs: Microbiology 04/18/20 20:05 Aerobic Blood Culture - Preliminary Blood - Venous Anaerobic Blood Culture - Final 04/18/20 20:20 Aerobic Blood Culture - Preliminary Blood - Arm, Right Anaerobic Blood Culture - Preliminary 04/19/20 11:50 Aerobic Blood Culture - Preliminary Blood - Arm, Right Anaerobic Blood Culture - Final 04/19/20 11:55 Aerobic Blood Culture - Preliminary Blood - Arm, Left Anaerobic Blood Culture - Preliminary Sepsis Event Note - Evaluation Sepsis Screening Result: No Definite Risk - Focused Exam Vital Signs: Vital Signs Temp Pulse Resp BP BP Pulse Ox 04/20/20 09:18 115/52 L 04/20/20 00:00 98.5 F 69 16 113/54 L 95 - Problem List & Annotations (1) Leukoaraiosis SNOMED Code(s): 59921037 Code(s): I67.81 - ACUTE CEREBROVASCULAR INSUFFICIENCY Status: Acute Current Visit: Yes (2) Chronic anemia SNOMED Code(s): 533970479 Code(s): D64.9 - ANEMIA, UNSPECIFIED Status: Acute Current Visit: Yes (3) Uncontrolled type 2 diabetes mellitus SNOMED Code(s): 356953693, 973503848 Code(s): E11.65 - TYPE 2 DIABETES MELLITUS WITH HYPERGLYCEMIA Status: Acute Current Visit: Yes (4) Hepatitis, alcoholic SNOMED Code(s): 143434341 Code(s): K70.10 - ALCOHOLIC HEPATITIS WITHOUT ASCITES Status: Acute Current Visit: Yes (5) SIRS without infection with organ dysfunction SNOMED Code(s): 875545378284932, 727673189298873 Code(s): R65.11 - SIRS OF NON-INFECTIOUS ORIGIN W ACUTE ORGAN DYSFUNCTION Status: Acute Current Visit: Yes (6) Elevated brain natriuretic peptide (BNP) level SNOMED Code(s): 563756273, 012053196 Code(s): R79.89 - OTHER SPECIFIED ABNORMAL FINDINGS OF BLOOD CHEMISTRY Status: Acute Current Visit: Yes (7) Hypoglycemia SNOMED Code(s): 024985602 Code(s): E16.2 - HYPOGLYCEMIA, UNSPECIFIED Status: Acute Current Visit: No (8) Hyponatremia SNOMED Code(s): 66609441 Code(s): E87.1 - HYPO-OSMOLALITY AND HYPONATREMIA Status: Acute Current Visit: Yes (9) Lumbar disc herniation SNOMED Code(s): 028085742 Code(s): M51.26 - OTHER INTERVERTEBRAL DISC DISPLACEMENT, LUMBAR REGION Status: Acute Current Visit: Yes (10) Sepsis due to undetermined organism SNOMED Code(s): 48420633 Code(s): A41.9 - SEPSIS, UNSPECIFIED ORGANISM Status: Acute Current V isit: Yes (11) Gram-positive bacteremia SNOMED Code(s): 383401302888 Code(s): R78.81 - BACTEREMIA Status: Acute Current Visit: Yes - Problem List Review Problem List Initiated/Reviewed/Updated: Yes - My Orders Last 24 Hours: My Active Orders 04/19/20 11:15 Lidocaine 5% [Lidoderm 5%] 700 mg TRDERM DAILY 04/19/20 11:50 CULTURE BLOOD [BC] Stat 04/19/20 11:55 CULTURE BLOOD [BC] Stat 04/19/20 12:24 Echo Comp wo Cont [US] Routine 04/19/20 12:30 Pharmacy to Dose - Vancomycin 1 dose .XX ASDIRECTED Piperacillin/Tazobactam [Zosyn] 3.375 gm Sodium Chloride 0.9% [Normal Saline] 100 ml IV Q6HR 04/19/20 13:00 Vancomycin 1 gm Sodium Chloride 0.9% [Normal Saline (AdvBag)] 250 ml IV Q8H 04/19/20 18:00 Insulin Glarg,Human.Rec.Analog [LantUS] 10 unit SUBCUT WITHDINNER 04/19/20 21:00 Remove Patch 1 ea TRDERM BEDTIME Tamsulosin [Flomax] 0.8 mg PO BEDTIME 04/20/20 06:00 Levothyroxine [Synthroid] 50 mcg PO ACBREAKFAST Pantoprazole [ProTONIX] 40 mg PO ACBREAKFAST 04/20/20 08:00 Ferrous Sulfate 325 mg PO Q48H glipiZIDE [Glucotrol] 5 mg PO DAILY@0800 04/20/20 08:30 Pharmacy to Dose - Warfarin 1 dose .XX ASDIRECTED 04/20/20 09:00 Alogliptin Benzoate [Alogliptin] 25 mg PO DAILY Aspirin [Halfprin] 81 mg PO DAILY Losartan [Cozaar] 100 mg PO DAILY Multivitamins,Therapeutic [Thera] 1 each PO DAILY 04/20/20 09:24 Chest Abdomen Pelvis w Cont [CT] Routine 04/20/20 12:30 VANCOMYCIN TROUGH [CHEM] Timed 04/20/20 14:00 Warfarin [Coumadin] 2.5 mg PO ONETIME ONE 04/21/20 05:11 COMPREHENSIVE METABOLIC PN,CMP [CHEM] AM INR,PT,PROTHROMBIN TIME [COAG] AM 04/22/20 05:11 COMPREHENSIVE METABOLIC PN,CMP [CHEM] AM 04/23/20 05:11 COMPREHENSIVE METABOLIC PN,CMP [CHEM] AM - Plan Plan:: #Bacteremia Blood cells on admit positive for gram-positive cocci 2 set out of 2. Repeat blood culture came back positive Follow-up on urine culture, Gram stain for sputum culture Echo done. Report pending Sent for CT chest abdomen and pelvis with contrast to look for source of infection Continue broad-spectrum antibiotic with Vanco and Zosyn #Possible sepsis Source of infection not clear Follow-up on cultures Continue antibiotics #Acute encephalopathy likely metabolic Improved Continue to monitor mental status #Supratherapeutic INR due to chronic anticoagulation with warfarin. INR 7.6 on admit Status post give 5 mg Vit K x 2 Coumadin this morning 2.4 We will resume Coumadin. Pharmacy to dose Daily INR #Uncontrolled Type II DM Serum glucose improved Continue Levemir 10 units qhs, Pioglitazone and saxagliptin Sliding scale insulin Accu-cheks Hypoglycemic protocol #HTN Controlled Continue home medications Monitor BP #Hepatitis likely due to alcohol abuse Monitor LFTs #Elevated BNP Patient euvolemic on exam Echo when available #Hypocalcemia Improved #Acute on chronic back pain due to L4-L5 disc herniation CT of lumbar bones showing prominent disc bulging at L4-L5 Oxycodone prn Lidocaine patch PT/OT #Diet Consistent carb #CODE STATUS Full
--- NOTE | 2020-04-20 12:07 | US ---
EXAMINATION: Abdomen Ltd SEX: Male AGE: 84 years CLINICAL HISTORY: 84-year-old male with abnormal LFTs and CT evidence "diseased gallbladder". Scan technique: Homogeneous echodense liver consistent with fatty infiltration. No dilatation of the intra/extrahepatic biliary ducts. Septated gallbladder with some irregular wall thickening located RUQ. Dependent intraluminal echogenic "shadowing" gallstones. No pericystic fluid. No ascites or pleural effusion. Pancreas obscured by gas (unremarkable on CT exam). CONCLUSION: Diseased gallbladder confirmed. Fatty liver.
--- NOTE | 2020-04-20 12:27 | CT ---
EXAMINATION: Chest Abdomen Pelvis w Cont SEX: Male AGE: 84 years CLINICAL HISTORY: 84-year-old hypertensive 156 pound diabetic male (ex-smoker) with cardiac valve prosthesis, cardiac pacemaker and clinical "sepsis" (serum WBC 11,200). Appendectomy. CT abdomen October 2017 revealed "cholelithiasis; large hematoma/tissue mass lower left flank overlying ipsilateral iliac crest; diverticulosis distal colon." Scan technique: Volume acquisition of data from the chest, abdomen and pelvis obtained without oral contrast but during the intravenous administration of 100 cc nonionic Isovue contrast at 2.5 cc/s via injector while patient was lying supine on the Siemens multislice scanner [place], [place]. All data archived in the PACS system for storage, reformatting axial/sagittal/coronal planes and study. Interpretation: Abnormal. 1. Diseased gallbladder RUQ, i.e. wall thickening, intraluminal calcifications and fat. No pericystic fluid. 2. Liver normal size and anatomic configuration. Homogeneous liver density without sign discrete intrahepatic cystic or solid mass lesion. No abnormal dilatation of the intra or extrahepatic biliary ducts. Spleen, stomach and adrenal glands unremarkable. Normal pancreas and kidneys. 3. Cardiac pacemaker. Aortic valve prosthesis. Normal cardiac size and configuration. No pericardial effusion. No pulmonary vascular congestion, alveolar edema or dependent pleural fluid accumulation (effusions). 4. Bibasilar atelectasis and/or pleural parenchymal fibrosis. No lung mass, hilar lymphadenopathy, alveolar infiltrate or peripheral "groundglass" interstitial lung densities. 5. Calcifications outline course of normal caliber aortoiliac vessels. No aneurysm or dissection. Prostate unremarkable. 6. Numerous diverticula sigmoid colon without associated inflammatory abscess or "dirty" peritoneal fat. No perforation. 7. No pelvic or abdominal mass lesion. No mesenteric or retroperitoneal lymphadenopathy. No ventral hernias, signs of mechanical bowel obstruction, ascites or free intraperitoneal air. CONCLUSION: Diseased gallbladder. Sigmoid diverticulosis. Usual signs of senescence. Cardiac pacemaker/valve.
[2020-04-20] MEDS ORDERED: Warfarin 2.5 MG Tab PO ONE (14:00)
[2020-04-20] MEDS ORDERED: Sodium Chloride 0.9% 1,000 ML IV SCH (17:15)
[2020-04-20] MEDS: Insulin Glarg,Human.Rec.Analog 100 Unit/ML SUBCUT SCH (17:32)
[2020-04-20] MEDS: Tamsulosin 0.4 MG Cap.ER PO SCH (20:39)
[2020-04-20] MEDS: traMADol 50 MG Tab PO PRN (20:39)
[2020-04-21] MEDS: Piperacillin/Tazobactam 3.375 GM in Sodium Chloride 0.9% 100 ML IV SCH ×3 (00:02→12:00)
[2020-04-21] MEDS: Acetaminophen 325 MG Tab PO PRN ×2 (04:09→11:00)
[2020-04-21] MEDS: Levothyroxine 50 MCG Tab PO SCH (05:04)
[2020-04-21] MEDS: Pantoprazole 40 MG Tab.CR PO SCH (05:04)
[2020-04-21] MEDS: traMADol 50 MG Tab PO PRN (05:05)
[2020-04-21 06:48] LABS: CHLORIDE,CL 96 mmol/L (98-107); SODIUM,NA 129 mmol/L (136-145)
[2020-04-21] MEDS: Lidocaine 5% 700 MG Patch TRDERM SCH (09:29)
[2020-04-21 09:30] VITALS: BP 111/43; PULSE 95
[2020-04-21] MEDS: Aspirin 81 MG Tab.EC PO SCH (09:31)
[2020-04-21] MEDS: glipiZIDE 5 MG Tab PO SCH (09:31)
[2020-04-21] MEDS: Multivitamins,Therapeutic Tab PO SCH (09:31)
[2020-04-21] MEDS: Insulin Lispro 100 Units/ML 3 ML Vial SUBCUT SCH ×2 (09:32→12:13)
[2020-04-21] MEDS: Losartan 50 MG Tab PO SCH (09:33)
[2020-04-21] MEDS: ALOGLIPTIN BENZOATE 25 MG PO SCH (09:34)
[2020-04-21] MEDS: VITAMIN D3 PO SCH (09:35)
[2020-04-21] MEDS: CALCIUM CITRATE PO SCH (09:35)
--- NOTE | 2020-04-21 09:59 | PCM.DCSUM1 ---
Discharge Summary - Hospital Course Free Text/Narrative:: Derian is a 84-year-old male with history of hypertension, type 2 diabetes brought to the ED EMS for evaluation of altered mental status and back pain. Initial labs significant for WBC 15.2, INR 7.6, sodium 128, glucose 347. Chest x-ray was negative. CT head was negative. CT of cervical spine, lumbar spine negative for acute fracture. blood culture later positive with GPC in pairs. CT chest abdomen and pelvis was negative for acute finding or source of infection. TTE is pending. Patient remained encephalopathic. He was started on vanc and zosyn. He was transferred to [facility] for sepsis with gram positive bacteremia of unknown origin. Diagnosis: Stroke: No - Discharge Data Discharge Date: 04/21/20 Discharge Disposition: DC/Tfer to Acute Hospital 02 Condition: Stable - Referral to Home Health Primary Care Physician: [facility] - Patient Summary/Data Consults: Consultations 04/18/20 22:55 OT Evaluation and Treatment [CONS] Routine PT Evaluation and Treatment [CONS] Routine - Discharge Plan *PRESCRIPTION DRUG MONITORING PROGRAM REVIEWED*: Not Applicable *COPY OF PRESCRIPTION DRUG MONITORING REPORT IN PATIENT BURT: Not Applicable Home Medications: Home Meds Calcium Citrate/Vitamin D3 [Calcium Citrate + D] 1 tab PO BID 02/27/14 [History] Dextrose [Glucose] 16 gm PO ASDIRECTED 08/20/18 [History] Insulin Detemir [Levemir] 10 unit SQ WITHDINNER #1 vial 08/21/18 [Rx] Alogliptin Benzoate [Alogliptin] 25 mg PO DAILY 04/19/20 [History] Aspirin [Aspirin EC] 81 mg PO DAILY 04/19/20 [History] Docusate Sodium 100 mg PO BID 04/19/20 [History] Ferrous Sulfate 325 mg PO Q48H 04/19/20 [History] Hydrophilic Ointment [Hydrophilic] 410 gm TP ASDIRECTED PRN 04/19/20 [History] Levothyroxine [Synthroid] 50 mcg PO ACBREAKFAST 04/19/20 [History] Losartan [Cozaar] 100 mg PO DAILY 04/19/20 [History] Multivitamin 1 tab PO DAILY 04/19/20 [History] Pantoprazole Sodium [Protonix] 40 mg PO DAILY 04/19/20 [History] Tamsulosin HCl 0.8 mg PO BEDTIME 04/19/20 [History] Warfarin Sodium [Jantoven] 3.75 mg PO DAILY 04/19/20 [History] glipiZIDE [Glucotrol] 5 mg PO DAILY 04/19/20 [History] polyethylene glycoL 3350 [MiraLAX] 1 dose PO DAILY PRN 04/19/20 [History] Aspirin [Halfprin] 81 mg PO DAILY tab.ec 04/21/20 [Rx] Forms: ED Department Discharge Referrals: PCP,None [Ordering Only Provider] - - Discharge Summary/Plan Comment DC Time >30 min.: Yes - General Info Date of Service: 04/21/20 Admission Dx/Problem (Free Text: Admission Diagnosis/Problem Admission Diagnosis/Problem Acute encephalopathy/bacteremia Subjective Update: No acute changes overnight. Vital signs stable. - Review of Systems General: Reports: Weakness HEENT: Reports: No Symptoms Pulmonary: Reports: No Symptoms Cardiovascular: Reports: No Symptoms Gastrointestinal: Reports: No Symptoms Genitourinary: Reports: No Symptoms Musculoskeletal: Reports: No Symptoms Skin: Reports: No Symptoms Neurological: Reports: Confusion Psychiatric: Reports: No Symptoms - Patient Data Vitals - Most Recent: Last Vital Signs Temp 97.1 F 04/21/20 08:00 Pulse 95 04/21/20 08:00 Resp 18 04/21/20 08:00 BP 111/43 L 04/21/20 09:33 Pulse Ox 94 L 04/21/20 08:00 Weight - Most Recent: 156 lb 4.8 oz I&O - Last 24 hours: Intake & Output 04/20/20 04/21/20 04/21/20 22:59 06:59 14:59 Intake Total 820 1707 Output Total 350 600 450 Balance 470 1107 -450 Lab Results - Last 24 hrs: Laboratory Results - last 24 hr 04/20/20 04/20/20 04/20/20 Range/Units 11:35 12:21 12:21 PT (9.0-12.0) SEC INR (0.9-1.2) Sodium (136-145) mmol/L Potassium (3.5-5.1) mmol/L Chloride (98-107) mmol/L Carbon Dioxide (21-32) mmol/L Anion Gap (7-13) mEq/L BUN (7-18) mg/dL Creatinine (0.70-1.30) mg/dL Est Cr Clr Drug Dosing mL/min Estimated GFR (MDRD) BUN/Creatinine Ratio (No establ ref range) Glucose (74-99) mg/dL POC Glucose 213 H (83-110) mg/dl Calcium (8.5-10.1) mg/dL Total Bilirubin (0.2-1.0) mg/dL AST (15-37) U/L ALT (16-63) U/L Alkaline Phosphatase (46-116) U/L Ammonia 16 (11-32) umol/L Total Protein (6.4-8.2) g/dL Albumin (3.4-5.0) g/dL Globulin Albumin/Globulin Ratio Vancomycin Trough 16.0 (10.0-20.0) ug/mL 04/20/20 04/20/20 04/21/20 Range/Units 16:39 20:25 06:00 PT 20.8 H (9.0-12.0) SEC INR 2.2 H (0.9-1.2) Sodium (136-145) mmol/L Potassium (3.5-5.1) mmol/L Chloride (98-107) mmol/L Carbon Dioxide (21-32) mmol/L Anion Gap (7-13) mEq/L BUN (7-18) mg/dL Creatinine (0.70-1.30) mg/dL Est Cr Clr Drug Dosing mL/min Estimated GFR (MDRD) BUN/Creatinine Ratio (No establ ref range) Glucose (74-99) mg/dL POC Glucose 137 H 198 H (83-110) mg/dl Calcium (8.5-10.1) mg/dL Total Bilirubin (0.2-1.0) mg/dL AST (15-37) U/L ALT (16-63) U/L Alkaline Phosphatase (46-116) U/L Ammonia (11-32) umol/L Total Protein (6.4-8.2) g/dL Albumin (3.4-5.0) g/dL Globulin Albumin/Globulin Ratio Vancomycin Trough (10.0-20.0) ug/mL 04/21/20 04/21/20 Range/Units 06:00 08:01 PT (9.0-12.0) SEC INR (0.9-1.2) Sodium 129 L (136-145) mmol/L Potassium 4.0 (3.5-5.1) mmol/L Chloride 96 L (98-107) mmol/L Carbon Dioxide 26 (21-32) mmol/L Anion Gap 11.0 (7-13) mEq/L BUN 18 (7-18) mg/dL Creatinine 0.84 (0.70-1.30) mg/dL Est Cr Clr Drug Dosing 61.18 mL/min Estimated GFR (MDRD) > 60 BUN/Creatinine Ratio 21.4 (No establ ref range) Glucose 126 H (74-99) mg/dL POC Glucose 138 H (83-110) mg/dl Calcium 7.0 L (8.5-10.1) mg/dL Total Bilirubin 0.7 (0.2-1.0) mg/dL AST 86 H (15-37) U/L ALT 98 H (16-63) U/L Alkaline Phosphatase 147 H (46-116) U/L Ammonia (11-32) umol/L Total Protein 4.6 L (6.4-8.2) g/dL Albumin 1.7 L (3.4-5.0) g/dL Globulin 2.9 Albumin/Globulin Ratio 0.59 Vancomycin Trough (10.0-20.0) ug/mL [facility] Results - Last 24 hrs: Microbiology 04/20/20 16:45 Urine Culture - Preliminary Urine, Midstream NO GROWTH AFTER 1 DAY 04/18/20 20:05 Aerobic Blood Culture - Preliminary Blood - Venous Anaerobic Blood Culture - Final 04/18/20 20:20 Aerobic Blood Culture - Preliminary Blood - Arm, Right Anaerobic Blood Culture - Preliminary Med Orders - Current: Current Medications Acetaminophen (Tylenol) 650 mg PO Q6H PRN PRN Reason: Pain (Mild 1-3)/fever Last Admin: 04/21/20 04:09 Dose: 650 mg Documented by: Aspirin (Halfprin) 81 mg PO DAILY [facility] Last Admin: 04/21/20 09:31 Dose: 81 mg Documented by: Dextrose/Water (Dextrose 50% In Water) 50 ml IV ASDIRECTED PRN PRN Reason: Hypoglycemia Docusate Sodium (Colace) 100 mg PO BID PRN PRN Reason: Constipation Ferrous Sulfate (Ferrous Sulfate) 325 mg PO Q48H [facility] Last Admin: 04/20/20 09:16 Dose: 325 mg Documented by: Glipizide (Glucotrol) 5 mg PO DAILY@0800 [facility] Last Admin: 04/21/20 09:31 Dose: 5 mg Documented by: Glucagon (Glucagen) 1 mg IM ASDIRECTED PRN PRN Reason: Hypoglycemia Piperacillin Sod/Tazobactam (Sod 3.375 gm/ Sodium Chloride) 100 mls @ 200 mls/hr IV Q6HR [facility] Last Infusion: 04/21/20 06:35 Dose: Infused Documented by: Vancomycin HCl 1 gm/ Sodium (Chloride) 250 mls @ 166.667 mls/hr IV Q8H [facility] Last Admin: 04/21/20 04:13 Dose: 166.667 mls/hr Documented by: Insulin Glargine (Lantus) 10 unit SUBCUT WITHDINNER [facility] Last Admin: 04/20/20 17:32 Dose: 10 units Documented by: Insulin Human Lispro (Humalog) 0 unit SUBCUT WITHMEALSANDBED [facility]; Protocol Last Admin: 04/21/20 09:32 Dose: Not Given Documented by: Levothyroxine Sodium (Synthroid) 50 mcg PO ACBREAKFAST [facility] Last Admin: 04/21/20 05:04 Dose: 50 mcg Documented by: Lidocaine (Lidoderm 5%) 700 mg TRDERM DAILY [facility] Last Admin: 04/21/20 09:29 Dose: 700 mg Documented by: Losartan Potassium (Cozaar) 100 mg PO DAILY [facility] Last Admin: 04/21/20 09:33 Dose: Not Given Documented by: Magnesium Hydroxide (Milk Of Magnesia) 30 ml PO Q12H PRN PRN Reason: Constipation Miscellaneous Information (Remove Patch) 1 ea TRDERM BEDTIME [facility] Last Admin: 04/20/20 20:40 Dose: 1 ea Documented by: Multivitamins (Thera) 1 each PO DAILY [facility] Last Admin: 04/21/20 09:31 Dose: 1 each Documented by: Calcium Citrate/Vitamin D3 315 Mg/250 Iunits 1 tab PO BID [facility] Last Admin: 04/21/20 09:35 Dose: 1 tab Documented by: Alogliptin Benzoate (25 Mg Pt Own Med) 25 mg PO DAILY [facility] Last Admin: 04/21/20 09:34 Dose: 25 mg Documented by: Ondansetron HCl (Zofran) 4 mg IVPUSH Q6H PRN PRN Reason: Nausea/Vomiting Pantoprazole Sodium (Protonix) 40 mg PO ACBREAKFAST [facility] Last Admin: 04/21/20 05:04 Dose: 40 mg Documented by: Polyethylene Glycol (Miralax) 17 gm PO DAILY PRN PRN Reason: Constipation Tamsulosin HCl (Flomax) 0.8 mg PO BEDTIME [facility] Last Admin: 04/20/20 20:39 Dose: 0.8 mg Documented by: Tramadol HCl (Ultram) 50 mg PO Q8H PRN PRN Reason: Pain (moderate 4-6) Last Admin: 04/21/20 05:05 Dose: 50 mg Documented by: Vancomycin HCl (Pharmacy To Dose - Vancomycin) 1 dose .XX ASDIRECTED [facility] Warfarin Sodium (Pharmacy To Dose - Warfarin) 1 dose .XX ASDIRECTED [facility] Warfarin Sodium (Coumadin) 2.5 mg PO ONETIME ONE Stop: 04/21/20 14:01 Discontinued Medications Dextrose/Water (Dextrose 50% In Water) 50 ml IV ASDIRECTED PRN PRN Reason: Hypoglycemia Glipizide (Glucotrol) 5 mg PO ACBREAKFAST [facility] Last Admin: 04/20/20 06:02 Dose: Not Given Documented by: Glucagon (Glucagen) 1 mg IM ASDIRECTED PRN PRN Reason: Hypoglycemia Sodium Chloride (Normal Saline) 1,000 mls @ 100 mls/hr IV ASDIRECTED [facility] Last Admin: 04/18/20 23:44 Dose: 100 mls/hr Documented by: Sodium Chloride (Normal Saline) 1,000 mls @ 75 mls/hr IV ASDIRECTED [facility] Stop: 04/21/20 06:34 Last Admin: 04/20/20 17:28 Dose: 75 mls/hr Documented by: Insulin Human Regular (Humulin R) 10 unit IV ONETIME ONE Stop: 04/18/20 21:18 Last Admin: 04/18/20 21:26 Dose: 329 units Documented by: Iopamidol (Isovue-300 (61%)) 100 ml IVPUSH ONETIME ONE Stop: 04/20/20 10:27 Last Admin: 04/20/20 11:18 Dose: 100 ml Documented by: Non-Formulary Medication (Dextrose [Glucose]) 16 gm PO ASDIRECTED [facility] Non-Formulary Medication (Hydrophilic Ointment [Hydrophilic]) 410 gm TP ASDIRECTED PRN PRN Reason: Dryness Oxycodone HCl (Oxycodone) 5 mg PO Q6H PRN PRN Reason: Pain (moderate 4-6) Last Admin: 04/20/20 09:19 Dose: 5 mg Documented by: Phytonadione (Mephyton) 5 mg PO ONETIME ONE Stop: 04/18/20 23:05 Last Admin: 04/18/20 23:24 Dose: 5 mg Documented by: Phytonadione (Mephyton) 5 mg PO ONETIME ONE Stop: 04/19/20 10:46 Last Admin: 04/19/20 11:26 Dose: 5 mg Documented by: Warfarin Sodium (Coumadin) 2.5 mg PO ONETIME ONE Stop: 04/20/20 14:01 Last Admin: 04/20/20 13:50 Dose: 2.5 mg Documented by: - Exam General: Reports: Alert. Denies: Oriented HEENT: Reports: Pupils Equal, Pupils Reactive, EOMI, Mucous Membr. Moist/[place] Neck: Reports: Supple Lungs: Reports: Clear to Auscultation, Normal Respiratory Effort Cardiovascular: Reports: Regular Rate, Regular Rhythm GI/Abdominal Exam: Normal Bowel Sounds, Soft, Non-Tender, No Organomegaly, No Distention, No Abnormal Bruit, No Mass, Pelvis Stable Back Exam: Reports: Vertebral Tenderness Extremities: Normal Inspection, Normal Range of Motion, Non-Tender, No Pedal Edema, Normal Capillary Refill Skin: Reports: Warm, Dry, Intact Neurological: Reports: No New Focal Deficit Psy/Mental Status: Reports: Alert *Q Meaningful Use (DIS) - VTE *Q VTE Anticoagulation Contraindications: Medical/Procedure Contrai
[2020-04-21] MEDS ORDERED: Warfarin 2.5 MG Tab PO ONE (14:00)
== END 2020-04-21 12:30 | DRG 871 ==
LOC: DL.ED 19:53 → DL.MS 22:17
PROVIDERS: ADMIT Student in an Organized Health Care Education/Training Program; ATTEND Internal Medicine
DX: A41.89 Other specified sepsis (principal); G93.41 Metabolic encephalopathy; I67.81 Acute cerebrovascular insufficiency; F10.288 Alcohol dependence with other alcohol-induced disorder; E87.1 Hypo-osmolality and hyponatremia; G93.40 Encephalopathy, unspecified; D64.9 Anemia, unspecified; M51.26 Other intervertebral disc displacement, lumbar region; K70.10 Alcoholic hepatitis without ascites; I50.9 Heart failure, unspecified; Y90.0 Blood alcohol level of less than 20 mg/100 ml; R79.89 Other specified abnormal findings of blood chemistry; E83.51 Hypocalcemia; R79.1 Abnormal coagulation profile; G89.29 Other chronic pain; E11.65 Type 2 diabetes mellitus with hyperglycemia; H54.7 Unspecified visual loss; I11.0 Hypertensive heart disease with heart failure; E78.00 Pure hypercholesterolemia, unspecified; I48.91 Unspecified atrial fibrillation; E64.9 Sequelae of unspecified nutritional deficiency; M48.061 Spinal stenosis, lumbar region without neurogenic claudication; E53.8 Deficiency of other specified B group vitamins; Z98.49 Cataract extraction status, unspecified eye; Z90.49 Acquired absence of other specified parts of digestive tract; Z79.82 Long term (current) use of aspirin; Z79.01 Long term (current) use of anticoagulants; Z79.4 Long term (current) use of insulin; Z79.899 Other long term (current) drug therapy; Z20.822 Contact with and (suspected) exposure to COVID-19
CPT/HCPCS: 36415; 70450; 71045; 72128; 72131; 80053; 80307; 81001; 82009; 82962 ×3; 83605; 83735; 83880; 84100; 84145; 84484; 85025; 85610; 87040 ×2; 87077; 87186; 93005; 99285; J1815; 71260; 74177; 76705; 80202; 82140; 82330; 85027; 87086; 93306; 97162-GP; 97166-GO; 99223; 99233; 99239; A9270-GY; J2543; J3370; J7030; J7050; Q9967; U0002

== ENCOUNTER 2020-05-03 07:05 | Emergency (ER) | payer MEDICARE, OTHER ==
[2020-05-03] MEDS ORDERED: Sodium Chloride 0.9% 10 ML Syringe FLUSH PRN (07:07)
--- NOTE | 2020-05-03 07:07 | EDM.PDOC ---
ED HPI GENERAL MEDICAL PROBLEM - General Chief Complaint: Neurological Problem Stated Complaint: AMBULANCE Time Seen by Provider: 05/03/20 07:06 Source of Information: Reports: Patient, EMS, Old Records, RN, RN Notes Reviewed History Limitations: Reports: Altered Mental Status - History of Present Illness INITIAL COMMENTS - FREE TEXT/NARRATIVE: Pt arrives to ER from home by [facility] with report of a "diabetic seizure". Pt's reports pt woke her with a loud long groaning noise, and she found his eyes to be rolled way up. She states there was no jerking or movement of the arms or legs, but his jaw was rigid and she could not open his mouth. Pt arrives hemodynamically stable, blood glucose 132, lethargic but responsive to verbal stimuli. Pt answers yes/no questions, but is unable to provide any history. Pt has a PICC line, and has been receiving outpt. IV antibiotic therapy. Records indicate he was transferred from inpatient status here on 04/21/20 of gram positive bacteremia sepsis without a known source. He has no documented history of seizure disorder. Family told EMS that he only has seizure-like activity when his blood sugar is too low. This morning family reports seizure-like activity and found his blood sugar to be in the 90's which they states is way too low for him, so they gave him honey, and he improved. Within 30 minutes of arrival the pt spontaneously began speaking, asking questions, and stated that he needed to urinate. He does not recall any of the events from this morning, or being in the ambulance. Pt complains only of chronic low back pain, which he states has been present for many years. He denies fever, chills, chest pain, shortness of breath, cough, abdominal pain, or edema. Pt's states pt is due for Rocephin 2g IV in outpt. infusion at [facility] today. Onset: Today Duration: Recurring Location: Reports: Generalized Quality: Reports: Ache (at low back) Improves with: Reports: None Worsens with: Reports: None Associated Symptoms: Reports: No Other Symptoms Back Pain Score (Numeric/FACES): 7 - Related Data Allergies Allergy/AdvReac Type Severity Reaction Status Date / Time No Known Allergies Allergy Verified 05/03/20 07:20 Home Meds: Home Meds Calcium Citrate/Vitamin D3 [Calcium Citrate + D] 1 tab PO BID 02/27/14 [History] Dextrose [Glucose] 16 gm PO ASDIRECTED 08/20/18 [History] Insulin Detemir [Levemir] 10 unit SQ WITHDINNER #1 vial 08/21/18 [Rx] Alogliptin Benzoate [Alogliptin] 25 mg PO DAILY 04/19/20 [History] Aspirin [Aspirin EC] 81 mg PO DAILY 04/19/20 [History] Docusate Sodium 100 mg PO BID 04/19/20 [History] Ferrous Sulfate 325 mg PO Q48H 04/19/20 [History] Hydrophilic Ointment [Hydrophilic] 410 gm TP ASDIRECTED PRN 04/19/20 [History] Levothyroxine [Synthroid] 50 mcg PO ACBREAKFAST 04/19/20 [History] Losartan [Cozaar] 100 mg PO DAILY 04/19/20 [History] Multivitamin 1 tab PO DAILY 04/19/20 [History] Pantoprazole Sodium [Protonix] 40 mg PO DAILY 04/19/20 [History] Tamsulosin HCl 0.8 mg PO BEDTIME 04/19/20 [History] Warfarin Sodium [Jantoven] 3.75 mg PO DAILY 04/19/20 [History] glipiZIDE [Glucotrol] 5 mg PO DAILY 04/19/20 [History] polyethylene glycoL 3350 [MiraLAX] 1 dose PO DAILY PRN 04/19/20 [History] Past Medical History HEENT History: Reports: Impaired Vision Cardiovascular History: Reports: Afib, Heart Valve Replacement, High Cholesterol, Hypertension, Pacemaker Respiratory History: Reports: None Gastrointestinal History: Reports: None Genitourinary History: Reports: None Musculoskeletal History: Reports: Back Pain, Chronic Neurological History: Reports: None Psychiatric History: Reports: None Endocrine/Metabolic History: Reports: Diabetes, Type II, Hypokalemia, IDDM Hematologic History: Reports: Anemia, B12 Deficiency Immunologic History: Reports: None Oncologic (Cancer) History: Reports: None Dermatologic History: Reports: None - Infectious Disease History Infectious Disease History: Reports: Hepatitis A - Past Surgical History Head Surgeries/Procedures: Reports: None HEENT Surgical History: Reports: Cataract Surgery Other HEENT Surgeries/Procedures: BILATERAL CATARACT SURGERY Cardiovascular Surgical History: Reports: Pacer, Valve Replacement, Other (See Below) Other Cardiovascular Surgeries/Procedures: open heart surgery (aortic valve replacement in july 13, 2015). Pig valve. per son, new pacemaker 04/29/2020 Respiratory Surgical History: Reports: None GI Surgical History: Reports: Appendectomy, Colonoscopy, EGD Male Surgical History: Reports: None Endocrine Surgical History: Reports: None Neurological Surgical History: Reports: None Musculoskeletal Surgical History: Reports: None Social & Family History - Family History Family Medical History: No Pertinent Family History - Caffeine Use Caffeine Use: Reports: None - Living Situation & Occupation Living situation: Reports: , with Spouse Occupation: Retired ED ROS GENERAL - Review of Systems Review Of Systems: Unable To Obtain (Obtunded pt.) Reason Not Obtained: obtunded pt ED EXAM, NEURO - Physical Exam Exam: See Below Exam Limited By: Altered Mental Status General Appearance: Alert, No Apparent Distress, Lethargic, Other (Chronically ill appearing elderly male) Eye Exam: Bilateral Eye: EOMI, PERRL (pin point pupils) Ears: Normal External Exam Nose: Normal Inspection, No Blood Throat/Mouth: Normal Lips, No Airway Compromise Head Exam: Atraumatic, Normocephalic Neck: Normal Inspection, Supple, Non-Tender, Full Range of Motion Respiratory/Chest: No Respiratory Distress, Lungs Clear, No Accessory Muscle Use, Decreased Breath Sounds, Other (Recent pacer placement left upper chest wall, without signs of infection) Cardiovascular: Regular Rate, Rhythm, No Edema GI/Abdominal: Normal Bowel Sounds, Soft, Non-Tender Neurological: Alert (Later pt is alert and conversant, with some confusion), Other (Lethargic, arousable to verbal stimuli, no obvious motor deficits) Back Exam: Paraspinal Tenderness (Lumbar), Other (Lidocaine patch at midline low lumbar region). No: CVA Tenderness (L), CVA Tenderness (R) Extremities: Normal Inspection, No Pedal Edema, Normal Capillary Refill Psychiatric: Depressed Mood, Flat Affect Skin Exam: Warm, Dry, Intact, Normal Color #1 Interpretation EKG Date: 05/03/20 Time: 07:25 Rhythm: Other (Paced) Rate (Beats/Min): 66 Comparison: Change From Previous EKG (Pacer placed 04/29/20) Course - Vital Signs Last Recorded V/S: Last Vital Signs Temp 97.9 F 05/03/20 07:14 Pulse 65 05/03/20 07:14 Resp 16 05/03/20 07:14 BP 118/47 L 05/03/20 07:14 Pulse Ox 97 05/03/20 07:14 - Orders/Labs/Meds Orders: Active Orders 24 hr Category Date Time Status Blood Glucose Check, Bedside [] ONETIME Care 05/03/20 07:07 Active EKG 12 Lead [EKG Documentation Completion] [RC] STAT Care 05/03/20 07:07 Active Peripheral IV Care [RC] . DIRECTED Care 05/03/20 07:08 Active CULTURE BLOOD [BC] Stat Lab 05/03/20 07:16 Received CULTURE BLOOD [BC] Stat Lab 05/03/20 07:19 Received GLUCOSE,POC [POC] Routine Lab 05/03/20 07:11 Received Phytonadione [AquaMephyton] 10 mg Med 05/03/20 08:21 Active Sodium Chloride 0.9% [Normal Saline] 50 ml IV NOW Sodium Chloride 0.9% [Saline Flush] Med 05/03/20 07:07 Active 10 ml FLUSH ASDIRECTED PRN Blood Culture x2 Reflex Set [OM.PC] Stat Oth 05/03/20 07:07 Ordered Peripheral IV Insertion Adult [OM.PC] Stat Oth 05/03/20 07:07 Ordered Seizure Precautions [OM.PC] Routine Oth 05/03/20 07:07 Ordered Medication Orders Phytonadione 10 mg/ Sodium (Chloride) 51 mls @ 50 mls/hr IV NOW ONE Stop: 05/03/20 09:22 Last Admin: 05/03/20 08:33 Dose: 50 mls/hr Documented by: Sodium Chloride (Saline Flush) 10 ml FLUSH ASDIRECTED PRN PRN Reason: Keep Vein Open Last Admin: 05/03/20 07:27 Dose: 10 ml Documented by: [email or web address] Labs: Laboratory Tests 05/03/20 05/03/20 05/03/20 Range/Units 07:07 07:08 07:19 WBC 12.9 H (5.0-10.0) 10^3/uL RBC 3.84 L (4.6-6.2) 10^6/uL Hgb 10.1 L (14.0-18.0) g/dL Hct 30.1 L (40.0-54.0) % MCV 78.4 L (80-100) fL MCH 26.3 L (27.0-34.0) pg MCHC 33.6 (33.0-35.0) g/dL Plt Count 138 L (150-450) 10^3/uL Neut % (Auto) 88.9 H (42.2-75.2) % Lymph % (Auto) 5.3 L (20.5-50.1) % Glades % (Auto) 5.1 (2-8) % Eos % (Auto) 0.5 L (1.0-3.0) % Baso % (Auto) 0.2 (0.0-1.0) % PT (9.0-12.0) SEC INR (0.9-1.2) APTT (22.0-34.0) SEC Sodium (136-145) mmol/L Potassium (3.5-5.1) mmol/L Chloride (98-107) mmol/L Carbon Dioxide (21-32) mmol/L Anion Gap (7-13) mEq/L BUN (7-18) mg/dL Creatinine (0.70-1.30) mg/dL Est Cr Clr Drug Dosing mL/min Estimated GFR (MDRD) BUN/Creatinine Ratio (No establ ref range) Glucose (74-99) mg/dL Lactic Acid (0.4-2.0) mmol/L Calcium (8.5-10.1) mg/dL Total Bilirubin (0.2-1.0) mg/dL AST (15-37) U/L ALT (16-63) U/L Alkaline Phosphatase (46-116) U/L Troponin I (0.000-0.056) ng/mL Total Protein (6.4-8.2) g/dL Albumin (3.4-5.0) g/dL Globulin Albumin/Globulin Ratio Urine Color Yellow (YELLOW) Urine Appearance Clear (CLEAR) Urine pH 7.0 (5.0-9.0) Ur Specific [place]ford 1.020 (1.005-1.030) Urine Protein Negative (NEGATIVE) Urine Glucose (UA) Negative (NEGATIVE) Urine Ketones Negative (NEGATIVE) Urine Occult Blood Trace-intact H (NEGATIVE) Urine Nitrite Negative (NEGATIVE) Urine Bilirubin Negative (NEGATIVE) Urine Urobilinogen 0.2 (0.2-1.0) mg/dL Ur Leukocyte Esterase Negative (NEGATIVE) Urine RBC 0-5 /HPF Urine WBC Not seen (0-5/HPF) /HPF Ur Epithelial Cells Rare (NOT SEEN) /HPF Urine Bacteria Rare (0-FEW/HPF) /HPF Urine Mucus Few H (NOT SEEN) /LPF Urine Opiates Screen Negative (NEGATIVE) Ur Oxycodone Screen Negative (NEGATIVE) Urine Methadone Screen Negative (NEGATIVE) Ur Barbiturates Screen Negative (NEGATIVE) U Tricyclic Antidepress Negative (NEGATIVE) Ur Phencyclidine Scrn Negative (NEGATIVE) Ur Amphetamine Screen Negative (NEGATIVE) U Methamphetamines Scrn Negative (NEGATIVE) Urine MDMA Screen Negative (NEGATIVE) U Benzodiazepines Scrn Negative (NEGATIVE) Urine Cocaine Screen Negative (NEGATIVE) U Marijuana (THC) Screen Negative (NEGATIVE) Ethyl Alcohol (0) mg/dL Ketones 05/03/20 05/03/20 05/03/20 Range/Units 07:19 07:19 07:19 WBC (5.0-10.0) 10^3/uL RBC (4.6-6.2) 10^6/uL Hgb (14.0-18.0) g/dL Hct (40.0-54.0) % MCV (80-100) fL MCH (27.0-34.0) pg MCHC (33.0-35.0) g/dL Plt Count (150-450) 10^3/uL Neut % (Auto) (42.2-75.2) % Lymph % (Auto) (20.5-50.1) % Glades % (Auto) (2-8) % Eos % (Auto) (1.0-3.0) % Baso % (Auto) (0.0-1.0) % PT 98.9 H D (9.0-12.0) SEC INR 11.0 H* (0.9-1.2) APTT 43.3 H (22.0-34.0) SEC Sodium 139 D (136-145) mmol/L Potassium 3.4 L (3.5-5.1) mmol/L Chloride 101 (98-107) mmol/L Carbon Dioxide 26 (21-32) mmol/L Anion Gap 15.4 H (7-13) mEq/L BUN 6 L (7-18) mg/dL Creatinine 0.73 (0.70-1.30) mg/dL Est Cr Clr Drug Dosing 70.40 mL/min Estimated GFR (MDRD) > 60 BUN/Creatinine Ratio 8.2 (No establ ref range) Glucose 125 H (74-99) mg/dL Lactic Acid 2.7 H* (0.4-2.0) mmol/L Calcium 8.1 L (8.5-10.1) mg/dL Total Bilirubin 0.4 (0.2-1.0) mg/dL AST 35 (15-37) U/L ALT 38 (16-63) U/L Alkaline Phosphatase 101 (46-116) U/L Troponin I 0.217 H* (0.000-0.056) ng/mL Total Protein 6.3 L (6.4-8.2) g/dL Albumin 2.1 L (3.4-5.0) g/dL Globulin 4.2 Albumin/Globulin Ratio 0.50 Urine Color (YELLOW) Urine Appearance (CLEAR) Urine pH (5.0-9.0) Ur Specific Sanford (1.005-1.030) Urine Protein (NEGATIVE) Urine Glucose (UA) (NEGATIVE) Urine Ketones (NEGATIVE) Urine Occult Blood (NEGATIVE) Urine Nitrite (NEGATIVE) Urine Bilirubin (NEGATIVE) Urine Urobilinogen (0.2-1.0) mg/dL Ur Leukocyte Esterase (NEGATIVE) Urine RBC /HPF Urine WBC (0-5/HPF) /HPF Ur Epithelial Cells (NOT SEEN) /HPF Urine Bacteria (0-FEW/HPF) /HPF Urine Mucus (NOT SEEN) /LPF Urine Opiates Screen (NEGATIVE) Ur Oxycodone Screen (NEGATIVE) Urine Methadone Screen (NEGATIVE) Ur Barbiturates Screen (NEGATIVE) U Tricyclic Antidepress (NEGATIVE) Ur Phencyclidine Scrn (NEGATIVE) Ur Amphetamine Screen (NEGATIVE) U Methamphetamines Scrn (NEGATIVE) Urine MDMA Screen (NEGATIVE) U Benzodiazepines Scrn (NEGATIVE) Urine Cocaine Screen (NEGATIVE) U Marijuana (THC) Screen (NEGATIVE) Ethyl Alcohol < 3 (0) mg/dL Ketones Negative Meds: Medications Generic Name Dose Route Start Last Admin Trade Name Freq PRN Reason Stop Dose Admin Phytonadione 10 mg/ Sodium 51 mls @ 50 mls/hr 05/03/20 08:21 05/03/20 08:33 Chloride IV 05/03/20 09:22 50 mls/hr NOW ONE Administration Sodium Chloride 10 ml 05/03/20 07:07 05/03/20 07:27 Saline Flush FLUSH 10 ml ASDIRECTED PRN Administration Keep Vein Open - Radiology Interpretation Free Text[facility]Narrative:: [facility] [place] [facility] Call: [phone] assistance Online chat: [email or web address] Name: LEDY CRAWFORD Age: 84Years M Date: 05/03/2020 SSN: -- : [id number] Study: CT HEAD WO CONT Requesting Physician: SADIA FRAZIER Images: 150 Addl Studies: Provided Clinical History: Transient altered mental status w/seizure Contrast: Without Contrast Medium: Contrast Amount: Contrast Method: Page 1 of 2 PROCEDURE INFORMATION: Exam: CT Head Without Contrast Exam date and time: 05/03/2020 8:04 AM Age: 84 years old Clinical indication: Altered mental status/memory loss; Other: Transient altered mental status with seizure; Additional info: Transient altered mental status w/seizure TECHNIQUE: Imaging protocol: Computed tomography of the head without contrast. Radiation optimization: All CT scans at this facility use at least one of these dose optimization techniques: automated exposure control; mA and/or kV adjustment per patient size (includes targeted exams where dose is matched to clinical indication); or iterative reconst ruction. 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 M oderate hypoattenuating foci are noted in the posterior superior periatrial and anterior lateral ventricular periventricular white matter bilaterally. No intracranial hemorrhage. No mass or acute cortical infarction identified. Cerebral ventricles: Prominence of the ventricular system and subarachnoid spaces is consistent with the patient's age of 84 years. Bones/joints: No acute abnormality. No acute fracture. Paranasal sinuses: Visualized sinuses are unremarkable. No fluid levels. Mastoid air cells: Visualized mastoid air cells are well aerated. Orbital cavity: Bilateral prior cataract surgery. Vasculature: Atherosclerotic calcifications are present involving the carotid artery siphons bilaterally. Soft tissues: Unremarkable. IMPRESSION: 1. 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 LEDY CRAWFODR | Final Radiology Report CONFIDENTIALITY STATEMENT This report is intended only for use by the referring physician, and only in accordance with law. If you received this in error, call [phone]. Page 2 of 2 2. Age appropriate supratentorial and infratentorial atrophy. 3. Moderate chronic white matter microvascular ischemic disease. 4. No acute intracranial abnormality identified. Thank you for allowing us to participate in the care of your patient. Dictated and Authenticated by: Rich Devi MD 05/03/2020 8:21 AM Central Time ([place] & [place]) Departure - Departure Time of Disposition: 08:35 Disposition: DC/Tfer to [facility] 02 Condition: Fair, Undetermined Clinical Impression: Non-STEMI (non-ST elevated myocardial infarction), Supratherapeutic INR, Transient alteration of awareness, Anticoagulated on warfarin, Acute encephalopathy - Discharge Information *PRESCRIPTION DRUG MONITORING PROGRAM REVIEWED*: Not Applicable *COPY OF PRESCRIPTION DRUG MONITORING REPORT IN PATIENT BURT: Not Applicable Forms: ED Department Discharge, Interfacility Transfer NATO Sepsis Event Note (ED) - Focused Exam Vital Signs: Vital Signs Temp Pulse Resp BP Pulse Ox 05/03/20 07:14 97.9 F 65 16 118/47 L 97 - My Orders Last 24 Hours: My Active Orders 05/03/20 07:07 Blood Glucose Check, Bedside [RC] ONETIME EKG 12 Lead [EKG Documentation Completion] [RC] STAT Sodium Chloride 0.9% [Saline Flush] 10 ml FLUSH ASDIRECTED PRN Blood Culture x2 Reflex Set [OM.PC] Stat Peripheral IV Insertion Adult [OM.PC] Stat Seizure Precautions [OM.PC] Routine 05/03/20 07:08 Peripheral IV Care [RC] . DIRECTED 05/03/20 07:11 GLUCOSE,POC [POC] Routine 05/03/20 07:16 CULTURE BLOOD [BC] Stat 05/03/20 07:19 CULTURE BLOOD [BC] Stat 05/03/20 08:21 Phytonadione [AquaMephyton] 10 mg Sodium Chloride 0.9% [Normal Saline] 50 ml IV NOW - Assessment/Plan Last 24 Hours: My Active Orders 05/03/20 07:07 Blood Glucose Check, Bedside [RC] ONETIME EKG 12 Lead [EKG Documentation Completion] [RC] STAT Sodium Chloride 0.9% [Saline Flush] 10 ml FLUSH ASDIRECTED PRN Blood Culture x2 Reflex Set [OM.PC] Stat Peripheral IV Insertion Adult [OM.PC] Stat Seizure Precautions [OM.PC] Routine 05/03/20 07:08 Peripheral IV Care [RC] . DIRECTED 05/03/20 07:11 GLUCOSE,POC [POC] Routine 05/03/20 07:16 CULTURE BLOOD [BC] Stat 05/03/20 07:19 CULTURE BLOOD [BC] Stat 05/03/20 08:21 Phytonadione [AquaMephyton] 10 mg Sodium Chloride 0.9% [Normal Saline] 50 ml IV NOW
[2020-05-03 07:20] VITALS: BP 118/47; PULSE 65
[2020-05-03 07:45] LABS: PTT,PARTIAL THROMBOPLSTIN TIME 43.3 SEC (22.0-34.0)
[2020-05-03 07:49] LABS: ANION GAP 15.4 mEq/L (7-13); CHLORIDE,CL 101 mmol/L (98-107); SODIUM,NA 139 mmol/L (136-145)
[2020-05-03] MEDS ORDERED: Phytonadione 10 MG in Sodium Chloride 0.9% 50 ML IV ONE (08:21)
--- NOTE | 2020-05-03 08:21 | CT ---
PROCEDURE INFORMATION: Exam: CT Head Without Contrast Exam date and time: 05/03/2020 8:04 AM Age: 84 years old Clinical indication: Altered mental status/memory loss; Other: Transient altered mental status with seizure; Additional info: Transient altered mental status w/seizure TECHNIQUE: Imaging protocol: Computed tomography of the head without contrast. Radiation optimization: All CT scans at this facility use at least one of these dose optimization techniques: automated exposure control; mA and/or kV adjustment per patient size (includes targeted exams where dose is matched to clinical indication); or iterative reconstruction. 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 Moderate hypoattenuating foci are noted in the posterior superior periatrial and anterior lateral ventricular periventricular white matter bilaterally. No intracranial hemorrhage. No mass or acute cortical infarction identified. Cerebral ventricles: Prominence of the ventricular system and subarachnoid spaces is consistent with the patient's age of 84 years. Bones/joints: No acute abnormality. No acute fracture. Paranasal sinuses: Visualized sinuses are unremarkable. No fluid levels. Mastoid air cells: Visualized mastoid air cells are well aerated. Orbital cavity: Bilateral prior cataract surgery. Vasculature: Atherosclerotic calcifications are present involving the carotid artery siphons bilaterally. Soft tissues: Unremarkable. IMPRESSION: 1. 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 2. Age appropriate supratentorial and infratentorial atrophy. 3. Moderate chronic white matter microvascular ischemic disease. 4. No acute intracranial abnormality identified.
== END 2020-05-03 09:13 ==
LOC: EEVIPCON 07:05 → DL.ED 07:05
DX: I21.4 Non-ST elevation (NSTEMI) myocardial infarction (principal); R79.1 Abnormal coagulation profile; G93.40 Encephalopathy, unspecified; I48.91 Unspecified atrial fibrillation; I10 Essential (primary) hypertension; E11.9 Type 2 diabetes mellitus without complications; D64.9 Anemia, unspecified; Z79.01 Long term (current) use of anticoagulants; Z79.4 Long term (current) use of insulin; Z79.899 Other long term (current) drug therapy; Z79.82 Long term (current) use of aspirin; R41.82 Altered mental status, unspecified
CPT/HCPCS: 36415; 70450; 80053; 80305; 80307; 81001; 82009; 82962; 83605; 84484; 85025; 85610; 85730; 87040; 93005; 93010; 96365; 99285; J3430

== ENCOUNTER 2020-05-10 11:00 | Emergency (ER) | payer MEDICARE, OTHER ==
[2020-05-10 11:15] VITALS: BP 110/51; PULSE 64
[2020-05-10 11:46] LABS: CHLORIDE,CL 98 mmol/L (98-107); SODIUM,NA 134 mmol/L (136-145)
--- NOTE | 2020-05-10 11:54 | EDM.PDOC ---
ED HPI GENERAL MEDICAL PROBLEM - General Chief Complaint: Neuro Symptoms/Deficits Stated Complaint: AMBULANCE Time Seen by Provider: 05/10/20 11:30 Source of Information: Reports: Family, Old Records, Provider ([facility], [facility]), RN, RN Notes Reviewed History Limitations: Reports: Altered Mental Status (Lethargic; Rouses, but does not answer orientation questions appropriately) - History of Present Illness INITIAL COMMENTS - FREE TEXT/NARRATIVE: Patient presents to the ED via EMS from [facility] for complaints of altered mental status and progressive weakness. The patient was discharged from [facility] in [place] 05/03/20 following admission for AMS with possible seizure-like activity. 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 The patient has been on Zosyn, Rocephin, and Vancomycin via infusion therapy for the past two weeks and will require a total of six weeks. 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 Upon presentation the patient is lethargic, but rouses to touch. He does not answer orientation questions but states he has pain in his back. Patient's at beside states he has been lucid since discharge, up until last evening when he seemed confused and sleepy. She denies noting and fever, shaking chills, vomiting, or loose stools. She states he has not missed a dose of antibiotics. - Related Data Allergies Allergy/AdvReac Type Severity Reaction Status Date / Time No Known Allergies Allergy Verified 05/03/20 07:20 Home Meds: Home Meds Calcium Citrate/Vitamin D3 [Calcium Citrate + D] 1 tab PO BID 02/27/14 [History] Dextrose [Glucose] 16 gm PO ASDIRECTED 08/20/18 [History] Insulin Detemir [Levemir] 10 unit SQ WITHDINNER #1 vial 08/21/18 [Rx] Alogliptin Benzoate [Alogliptin] 25 mg PO DAILY 04/19/20 [History] Aspirin [Aspirin EC] 81 mg PO DAILY 04/19/20 [History] Docusate Sodium 100 mg PO BID 04/19/20 [History] Ferrous Sulfate 325 mg PO Q48H 04/19/20 [History] Hydrophilic Ointment [Hydrophilic] 410 gm TP ASDIRECTED PRN 04/19/20 [History] Levothyroxine [Synthroid] 50 mcg PO ACBREAKFAST 04/19/20 [History] Losartan [Cozaar] 100 mg PO DAILY 04/19/20 [History] Multivitamin 1 tab PO DAILY 04/19/20 [History] Pantoprazole Sodium [Protonix] 40 mg PO DAILY 04/19/20 [History] Tamsulosin HCl 0.8 mg PO BEDTIME 04/19/20 [History] Warfarin Sodium [Jantoven] 3.75 mg PO DAILY 04/19/20 [History] glipiZIDE [Glucotrol] 5 mg PO DAILY 04/19/20 [History] polyethylene glycoL 3350 [MiraLAX] 1 dose PO DAILY PRN 04/19/20 [History] levETIRAcetam [Keppra] 500 mg PO BID 05/07/20 [History] Past Medical History HEENT History: Reports: Impaired Vision Cardiovascular History: Reports: Afib, Heart Valve Replacement, High Cholesterol, Hypertension, Pacemaker, Other (See Below) Other Cardiovascular History: chronic atrial flutter, chronic right-sided heart failure Respiratory History: Reports: None Gastrointestinal History: Reports: None Genitourinary History: Reports: Other (See Below) Other Genitourinary History: adenocarcinoma of prostate, Denign prostatic hyperplasia Musculoskeletal History: Reports: Back Pain, Chronic Neurological History: Reports: None Psychiatric History: Reports: Dementia Endocrine/Metabolic History: Reports: Diabetes, Type II, Hypokalemia, IDDM, Other (See Below) Other Endocrine/Metabolic History: hyponatremia Hematologic History: Reports: Anemia, B12 Deficiency Immunologic History: Reports: None Oncologic (Cancer) History: Reports: Prostate Dermatologic History: Reports: None - Infectious Disease History Infectious Disease History: Reports: Hepatitis A - Past Surgical History Head Surgeries/Procedures: Reports: None HEENT Surgical History: Reports: Cataract Surgery Other HEENT Surgeries/Procedures: BILATERAL CATARACT SURGERY Cardiovascular Surgical History: Reports: Pacer, Valve Replacement, Other (See Below) Other Cardiovascular Surgeries/Procedures: open heart surgery (aortic valve replacement in july 13, 2015). Pig valve. per son, new pacemaker 04/29/2020 Respiratory Surgical History: Reports: None GI Surgical History: Reports: Appendectomy, Colonoscopy, EGD Male Surgical History: Reports: None Endocrine Surgical History: Reports: None Neurological Surgical History: Reports: None Musculoskeletal Surgical History: Reports: None Social & Family History - Family History Family Medical History: No Pertinent Family History - Tobacco Use Tobacco Use Status *Q: Unknown Ever Used Tobacco - Caffeine Use Caffeine Use: Reports: None - Recreational Drug Use Recreational Drug Use Frequency: Patient Refuses To Answer - Living Situation & Occupation Living situation: Reports: , with Spouse Occupation: Retired ED ROS GENERAL - Review of Systems Review Of Systems: Unable To Obtain Reason Not Obtained: Obtained by as patient does not answer questions d/t AMS ED EXAM, NEURO - Physical Exam Exam: See Below Exam Limited By: Altered Mental Status General Appearance: Lethargic, Other (Rouses to touch; Chronically-ill appearing) Throat/Mouth: Normal Inspection, Normal Voice, No Airway Compromise Neck: Normal Inspection, Supple, Non-Tender, Full Range of Motion Respiratory/Chest: No Respiratory Distress, No Accessory Muscle Use, Crackles (To bilateral bases). No: Rales, Rhonchi, Wheezing Cardiovascular: Bradycardia, Systolic Murmur (4/6, loudest over the pulmonic area), Other (V-Paced ). No: No Edema (+3 pitting, BLE) GI/Abdominal: Normal Bowel Sounds, Soft, Non-Tender, No Distention, No Mass, Pelvis Stable (Male) Exam: Deferred Rectal (Males) Exam: Deferred Neurological: Withdraws to Pain Back Exam: Normal Inspection, Full Range of Motion Extremities: Pedal Edema (+3 pitting, bilaterally) Skin Exam: Warm, Dry, Intact, Normal Color, No Rash. No: Ecchymosis, Erythema, Jaundice, Mottled, Pallor, Petechiae #1 Interpretation EKG Date: 05/10/20 Time: 11:16 Rhythm: Other (V-Paced) Rate (Beats/Min): 62 Andreas: LAD-Left Andreas Deviation Comparison: No Change EKG Interpretation Comments: V-Paced rhythm; No evidence of acute myocardial ischemia Course - Vital Signs Last Recorded V/S: Last Vital Signs Temp 96.7 F L 05/10/20 11:13 Pulse 64 05/10/20 11:13 Resp 16 05/10/20 11:13 BP 110/51 L 05/10/20 11:13 Pulse Ox 96 05/10/20 11:13 - Orders/Labs/Meds Labs: Laboratory Tests 03/05/10/20 05/10/20 Range/Units 11:17 11:17 11:17 WBC 13.7 H (5.0-10.0) 10^3/uL RBC 3.70 L (4.6-6.2) 10^6/uL Hgb 9.7 L (14.0-18.0) g/dL Hct 28.8 L (40.0-54.0) % MCV 77.8 L (80-100) fL MCH 26.2 L (27.0-34.0) pg MCHC 33.7 (33.0-35.0) g/dL Plt Count 199 (150-450) 10^3/uL Neut % (Auto) 88.3 H (42.2-75.2) % Lymph % (Auto) 5.5 L (20.5-50.1) % Stafford % (Auto) 5.4 (2-8) % Eos % (Auto) 0.7 L (1.0-3.0) % Baso % (Auto) 0.1 (0.0-1.0) % PT > 120.0 H (9.0-12.0) SEC INR > 10.0 H* (0.9-1.2) APTT 57.5 H (22.0-34.0) SEC Sodium 134 L (136-145) mmol/L Potassium 4.9 D (3.5-5.1) mmol/L Chloride 98 (98-107) mmol/L Carbon Dioxide 25 (21-32) mmol/L Anion Gap 15.9 H (7-13) mEq/L BUN 35 H D (7-18) mg/dL Creatinine 1.43 H (0.70-1.30) mg/dL Est Cr Clr Drug Dosing 38.53 mL/min Estimated GFR (MDRD) 47 BUN/Creatinine Ratio 24.5 (No establ ref range) Glucose 107 H (74-99) mg/dL Lactic Acid (0.4-2.0) mmol/L Calcium 8.3 L (8.5-10.1) mg/dL Magnesium 1.9 (1.8-2.4) mg/dL Total Bilirubin 0.5 (0.2-1.0) mg/dL AST 131 H (15-37) U/L ALT 55 (16-63) U/L Alkaline Phosphatase 176 H (46-116) U/L Troponin I 9.120 H* (0.000-0.056) ng/mL C-Reactive Protein 23.8 H (0.0-0.9) mg/dL B-Natriuretic Peptide 1410 H (0-100) pg/ml Total Protein 6.5 (6.4-8.2) g/dL Albumin 2.4 L (3.4-5.0) g/dL Globulin 4.1 Albumin/Globulin Ratio 0.59 Ethyl Alcohol < 3 (0) mg/dL 05/10/20 Range/Units 11:17 WBC (5.0-10.0) 10^3/uL RBC (4.6-6.2) 10^6/uL Hgb (14.0-18.0) g/dL Hct (40.0-54.0) % MCV (80-100) fL MCH (27.0-34.0) pg MCHC (33.0-35.0) g/dL Plt Count (150-450) 10^3/uL Neut % (Auto) (42.2-75.2) % Lymph % (Auto) (20.5-50.1) % Stafford % (Auto) (2-8) % Eos % (Auto) (1.0-3.0) % Baso % (Auto) (0.0-1.0) % PT (9.0-12.0) SEC INR (0.9-1.2) APTT (22.0-34.0) SEC Sodium (136-145) mmol/L Potassium (3.5-5.1) mmol/L Chloride (98-107) mmol/L Carbon Dioxide (21-32) mmol/L Anion Gap (7-13) mEq/L BUN (7-18) mg/dL Creatinine (0.70-1.30) mg/dL Est Cr Clr Drug Dosing mL/min Estimated GFR (MDRD) BUN/Creatinine Ratio (No establ ref range) Glucose (74-99) mg/dL Lactic Acid 2.1 H* (0.4-2.0) mmol/L Calcium (8.5-10.1) mg/dL Magnesium (1.8-2.4) mg/dL Total Bilirubin (0.2-1.0) mg/dL AST (15-37) U/L ALT (16-63) U/L Alkaline Phosphatase (46-116) U/L Troponin I (0.000-0.056) ng/mL C-Reactive Protein (0.0-0.9) mg/dL B-Natriuretic Peptide (0-100) pg/ml Total Protein (6.4-8.2) g/dL Albumin (3.4-5.0) g/dL Globulin Albumin/Globulin Ratio Ethyl Alcohol (0) mg/dL Meds: Medications Discontinued Medications Generic Name Dose Route Start Last Admin Trade Name Freq PRN Reason Stop Dose Admin Phytonadione 5 mg/ Sodium 50.5 mls @ 100 mls/hr 05/10/20 12:51 05/10/20 13:06 Chloride IV 05/10/20 13:21 100 mls/hr NOW ONE Administration Morphine Sulfate 1 mg 05/10/20 12:59 05/10/20 13:05 Morphine 2 Mg/Ml Syringe IVPUSH 05/10/20 13:00 1 mg ONETIME ONE Administration Morphine Sulfate Confirm 05/10/20 12:58 05/10/20 13:01 Morphine 2 Mg/Ml Syringe Administered 05/10/20 12:59 Not Given Dose 2 mg .ROUTE .STK-MED ONE - Re-Assessments/Exams Free Text/Narrative Re-Assessment/Exam: 05/10/20 WBC elevated at 13.8 with left shift present. Troponin elevated at 9.12, BNP 1410, Lactic Acid 2.1. Acute kidney injury appreciated with creatinine 1.4, GFR 47, and BUN 48. INR >10, Vitamin K 5mg ordered following discussion with Dr. Jasmine. Case discussed with Dr. Jasmine at [facility] in [place] who kindly agreed to accept patient for transfer for inpatient admission. Departure - Departure Time of Disposition: 12:44 Disposition: DC/Tfer to Acute Hospital 02 Condition: Fair Clinical Impression: NSTEMI (non-ST elevated myocardial infarction), Acute kidney injury, Chronic anemia Acute exacerbation of CHF (congestive heart failure) Qualifiers: Heart failure type: unspecified Qualified Code(s): I50.9 - Heart failure, unspecified - Discharge Information Forms: ED Department Discharge, Interfacility Transfer [facility] Sepsis Event Note (ED) - Evaluation Sepsis Screening Result: No Definite Risk
[2020-05-10 12:01] LABS: PTT,PARTIAL THROMBOPLSTIN TIME 57.5 SEC (22.0-34.0)
[2020-05-10 12:06] LABS: ANION GAP 15.9 mEq/L (7-13)
--- NOTE | 2020-05-10 12:32 | CR ---
EXAMINATION: Chest 1V Frontal SEX: Male AGE: 84 years CLINICAL HISTORY: 84-year-old male with recent history of "diseased gallbladder", abnormal LFTs, heart disease and now CHEST PAIN. Interpretation (upright AP chest): Abnormal. 1. External spiral binder leads; sternotomy wires; right long-arm PIC line; and, probable cardiac valve prosthesis. Note: Cardiac pacemaker demonstrated on 18 April 2020 CXR is no longer present. 2. Chronic mild cardiomegaly. 3. No evidence of pulmonary vascular congestion and pleural fluid accumulation on the right (new effusion). 4. No lung mass, hilar lymphadenopathy or focal lobar alveolar infiltrate. No peripheral "groundglass" lung densities. 5. No pneumothorax or pneumomediastinum. Discussion: Radiographic evidence suggestive cardiovascular decompensation i.e. CHF. Clinical? BNP? EKG? Weight?
[2020-05-10] MEDS ORDERED: Phytonadione 5 MG in Sodium Chloride 0.9% 50 ML IV ONE (12:51)
[2020-05-10] MEDS ORDERED: Morphine 2 MG/ML SYRINGE ONE (12:58)
[2020-05-10] MEDS ORDERED: Morphine 2 MG/ML SYRINGE IVPUSH ONE (12:59)
== END 2020-05-10 13:25 ==
LOC: DL.ED 11:00
DX: I21.4 Non-ST elevation (NSTEMI) myocardial infarction (principal); I11.0 Hypertensive heart disease with heart failure; I50.9 Heart failure, unspecified; D64.9 Anemia, unspecified; N17.9 Acute kidney failure, unspecified; E11.9 Type 2 diabetes mellitus without complications; I48.91 Unspecified atrial fibrillation; Z79.4 Long term (current) use of insulin; Z79.82 Long term (current) use of aspirin; Z79.01 Long term (current) use of anticoagulants; Z79.899 Other long term (current) drug therapy
CPT/HCPCS: 36415; 71045; 80053; 80307; 83605; 83735; 83880; 84484; 85025; 85610; 85730; 86140; 93005; 93010; 96365; 96375; 99284; 99285; J2270; J3430